=== PATIENT | female | born 1945 | race Caucasian/White ===

== ENCOUNTER 2016-10-01 11:15 | Emergency (ER) | payer OTHER ==
[2016-10-01 11:29] VITALS: TEMP 97.5; BMI 16.9
--- NOTE | 2016-10-01 11:36 | PDOC ---
History of Present Illness - History of Present Illness Initial Comments: 10/01/16 12:46 Patient is a 71 year old female with significant medical hx of schizophrenia who is presenting to the ED with throat pain, painful swallowing, and vomiting. The patient states she's had these symptoms for the past year. She was recently traveling across the country, when she stopped in [place] and stayed in a custodial for several months. While there, the patient went to the hospital for her symptoms and received and endoscopy. The patient is unsure of what was found, but reports that she was given protonix to take. The patient has been taking them until today. She complains of throat pain, esophageal pain, vomiting, and drooling. The patient has been having difficulty swallowing both liquids and solids. Denies fever, chills, diarrhea, abdominal pain, dysuria, hematuria, frequency, chest pain, and shortness of breath. <Opal Lane - Last Filed: 10/01/16 12:46> - General History Source: Patient Exam Limitations: No Limitations <Dasha Harvey - Last Filed: 10/02/16 16:44> - General Chief Complaint: Pain, Acute Stated Complaint: THROAT PAIN Time Seen by Provider: 10/01/16 11:25 Past History <Opal Lane - Last Filed: 10/01/16 12:46> - Past Medical History Anemia: Yes - Psycho/Social/Smoking Cessation Hx Anxiety: Yes Suicidal Ideation: No Smoking History: Never smoked Information on smoking cessation initiated: No Hx Alcohol Use: No Drug/Substance Use Hx: Yes ("CRACK,COCAINE,LSD" YEARS AGO) Substance Use Type: None <Dasha Harvey - Last Filed: 10/02/16 16:44> - Past Medical History Allergies/Adverse Reactions: Allergies Allergy/AdvReac Type Severity Reaction Status Date / Time No Known Allergies Allergy Verified 10/01/16 11:26 Home Medications: Ambulatory Orders Haloperidol [Haldol -] 2.5 mg PO DAILY 10/01/16 Melatonin 3 mg PO DAILY 10/01/16 Pantoprazole Sodium [Protonix] 40 mg PO DAILY 10/01/16 Review of Systems - Review of Systems Comments:: 10/01/16 12:51 GENERAL/CONSTITUTIONAL: No: fever, chills, weakness, loss of appetite. HEAD, EYES, EARS, NOSE AND THROAT: Yes: throat pain, drooling, difficulty swallowing. No: change in vision, ear pain, discharge. CARDIOVASCULAR: No: chest pain, lightheadedness, palpitations, syncope RESPIRATORY: No: cough, shortness of breath, wheezing, hemoptysis, stridor. GASTROINTESTINAL: Yes: nausea, vomiting. No: abdominal cramping, diarrhea, rectal bleeding, constipation. GENITOURINARY: No: dysuria, hematuria, frequency, urgency, flank pain. MUSCULOSKELET AL: No: back pain, neck pain, joint pain, muscle swelling or pain SKIN AND BREASTS: No: lesions, pallor, rash or easy bruising. NEUROLOGIC: No: headache, vertigo, paresthesias, weakness ENDOCRINE: No: unexplained weight gain or loss HEMATOLOGIC/LYMPHATIC: No: anemia, easy bleeding, swelling nodes <Opal Lane - Last Filed: 10/01/16 12:46> *Physical Exam - Vital Signs Last Vital Signs Temp Pulse Resp BP Pulse Ox 97.5 F L 96 H 18 87/69 96 10/01/16 11:17 10/01/16 11:17 10/01/16 11:17 10/01/16 11:17 10/01/16 11:17 - Physical Exam Comments: 10/01/16 12:52 GENERAL: Cachectic. The patient is in no acute distress. HEAD: Normal with no signs of trauma. EYES: PERRLA, EOMI, sclera anicteric, conjunctiva clear. ENT: Ears normal, nares patent, oropharynx clear without exudates. Dry mucous membranes. NECK: Normal range of motion, supple without lymphadenopathy, JVD, or masses. LUNGS: Breath sounds equal, clear to auscultation bilaterally. No wheezes, and no crackles. HEART:Regular rate and rhythm, normal S1 and S2 without murmur, rub or gallop. ABDOMEN: Soft, nontender, normoactive bowel sounds. No guarding, no rebound. EXTREMITIES: Normal range of motion, no edema. No clubbing or cyanosis. No erythema, or tenderness. NEUROLOGICAL: Cranial nerves II through XII grossly intact. Normal speech. No focal neurological deficits. MUSCULOSKELETAL: Back non-tender to palpation, no CVA tenderness SKIN: Warm, Dry, normal turgor, no rashes or lesions noted. <Opal Lane - Last Filed: 10/01/16 12:46> - Vital Signs Last Vital Signs Temp Pulse Resp BP Pulse Ox 97.5 F L 96 H 18 87/69 96 10/01/16 11:17 10/01/16 11:17 10/01/16 11:17 10/01/16 11:17 10/01/16 11:17 <Dasha Harvey - Last Filed: 10/02/16 16:44> Heart Score/ECG Review #1 ECG reviewed & interpreted by me at: 12:03 10/01/16 12:03 Twelve-lead EKG was performed and reviewed by me. There is normal sinus rhythm with a normal rate of 70 bpm. The axis is normal. The intervals are normal - pr: 140ms, QRS:80ms, Qtc:455ms. There are no ST or T wave abnormalities. G <Dasha Harvey - Last Filed: 10/02/16 16:44> ED Treatment Course - LABORATORY CBC & Chemistry Diagram: 10/01/16 12:22 10/01/16 12:22 - Medications Given in the ED: ED Medications Discontinued Medications Generic Name Dose Route Start Last Admin Trade Name Freq PRN Reason Stop Dose Admin Pantoprazole Sodium 40 mg/ 100 mls @ 200 mls/hr 10/01/16 12:06 10/01/16 12:40 Sodium Chloride IVPB 10/01/16 12:35 200 mls/hr ONCE ONE Administration <Opal Lane - Last Filed: 10/01/16 12:46> - LABORATORY CBC & Chemistry Diagram: 10/01/16 12:22 10/01/16 12:22 <Dasha Harvey - Last Filed: 10/02/16 16:44> Medical Decision Making - Medical Decision Making 10/01/16 11:36 A portion of this note was documented by scribe services under my direction. I have reviewed the details of the note, within reason, and agree with the documentation with the following case summary and management plan written by me. Nursing documentation reviewed and incorporated into medical decision making 10/01/16 12:07 This is a 71 yo F presenting to the ER due to concerns about pain/difficulty swallowing Pt states she has had these symptoms for the past 2 years It worsened over the past 6 months She was seen at a hospital in [place] She is s/p reported endoscopy which was negative according to patient Pt was told to take protonix 10/01/16 13:39 Laboratory Tests 10/01/16 10/01/16 12:22 12:22 WBC 10.1 H Hgb 11.0 Hct 34.5 Plt Count 305 Sodium 140 Potassium 3.5 Chloride 101 Carbon Dioxide 28 BUN 19 H Creatinine 0.9 Random Glucose 105 Creatine Kinase 49 Troponin I < 0.02 Will discharge to home Pt asked to follow up with a PMD as well as GI Pt BP remains low Given IV fluids (in total 1.5 L) pt encouraged to eat small meals 10/01/16 16:11 BP repeated 106/70 Will discharge to home Pt can follow up with the primary care physicians as we discussed Pt should also also follow up with GI for repeat endoscopy Pt encouraged to continue taking Protonix Follow up psych within 1 week <Dasha Harvey - Last Filed: 10/02/16 16:44> *DC/Admit/Observation/Transfer - Attestations Scribe Attestion: 10/01/16 12:53 Documentation prepared by Opal Lane, acting as manager medical writing for Dasha Harvey MD. <Opal Lane - Last Filed: 10/01/16 12:46> - Discharge Dispostion Admit: No <Dasha Harvey - Last Filed: 10/02/16 16:44> Diagnosis at time of Disposition: Gastritis and duodenitis - Discharge Dispostion Disposition: HOME Condition at time of disposition: Stable - Referrals Referrals: Abigail Fragoso MD [Staff Physician] - Randy Livingston MD [Staff Physician] - Carlos Vega MD [Staff Physician] - Kathryn Madrigal MD [Staff Physician] - - Patient Instructions Printed Discharge Instructions: DI for Gastritis, Gastritis (Alternative Therapy), [place] Diet Additional Instructions: [place] Thank you for coming in to the ER today Please make sure that you follow up with a primary care physician and GI doctor (their contact info is in your discharge paperwork) Please return to the ER for any other concerns or complaints Please modify your diet such that you eat soft foods which are easy to swallow
[2016-10-01] MEDS ORDERED: SODIUM CHLORIDE 1,000 ML IV STA ×2 (12:05→14:05)
[2016-10-01] MEDS ORDERED: PANTOPRAZOLE SODIUM 40 MG in SODIUM CHLORIDE 100 ML IVPB ONE (12:06)
[2016-10-01] MEDS ORDERED: PANTOPRAZOLE SODIUM 100 ML IVPB ONE (12:28)
[2016-10-01 12:43] LABS: MCHC 31.8 g/dl (32.0-36.0); MEAN CELL VOLUME 81.7 fl (80-96); MEAN PLT VOLUME 7.3 fl (7.5-11.1); PLATELET COUNT 305 K/MM3 (134-434); RDW 20.3 % (11.6-15.6); WHITE BLOOD COUNT 10.1 K/mm3 (4.0-10.0)
[2016-10-01 13:25] LABS: ALBUMIN 3.3 g/dl (3.4-5.0); ANION GAP 11 (8-16); BILIRUBIN,TOTAL 0.4 mg/dL (0.2-1.0); CALCIUM 9.2 mg/dL (8.5-10.1); CO2 28 mmol/L (21-32); CREATININE 0.9 mg/dL (0.55-1.02); GLUCOSE,RANDOM 105 mg/dL (74-106); SGOT/AST 14 U/L (15-37); SGPT/ALT 20 U/L (12-78); TOT PROT 6.2 g/dl (6.4-8.2)
[2016-10-01 13:26] LABS: ALK PHOS 91 U/L (45-117); TROPONIN I < 0.02 ng/ml (0.00-0.05)
[2016-10-01 14:08] LABS: ANISOCYTOSIS 1+; PLATELET ESTIMATE ADEQUATE (NORMAL)
[2016-10-01 16:31] VITALS: BP 108/68; PULSE 71
--- NOTE | 2016-10-04 12:17 | EKG ---
Test Reason : Blood Pressure : / mmHG Vent. Rate : 070 BPM Atrial Rate : 070 BPM P-R Int : 140 ms QRS Dur : 080 ms QT Int : 422 ms P-R-T Axes : 064 008 053 degrees QTc Int : 455 ms NORMAL SINUS RHYTHM LEFT ATRIAL ENLARGEMENT BORDERLINE ECG NO PREVIOUS ECGS AVAILABLE Confirmed by LINH REYNOLDS MD ([id number]) on 10/04/2016 12:17:02 PM Referred By: Confirmed By:LINH REYNOLDS MD
== END 2016-10-01 16:34 | disposition home or self-care (01) ==
LOC: JER 11:15
PROC: 3E0337Z Introduction of Electrolytic and Water Balance Substance into Peripheral Vein, Percutaneous Approach (ICD-10-PCS; principal; 2016-10-01)
PROC: 3E033GC Introduction of Other Therapeutic Substance into Peripheral Vein, Percutaneous Approach (ICD-10-PCS; 2016-10-01)
DX: K29.60 Other gastritis without bleeding (principal); K29.80 Duodenitis without bleeding
CPT/HCPCS: 36415; 80053; 82550; 84484; 85025; 93005; 93010; 96361; 96365; 99284-25

== ENCOUNTER 2017-04-11 18:59 | Inpatient (IN) | payer OTHER ==
[2017-04-11 19:20] VITALS: BMI 14.4
--- NOTE | 2017-04-11 20:50 | PDOC ---
History of Present Illness - General History Source: Patient Exam Limitations: No Limitations - History of Present Illness Initial Comments: 04/11/17 21:02 The patient is a 71 year old female with history of anorexia and bulimia who presents to the ED complaining of several months of decreased appetite and generalized weakness. She states she has not been eating for several months. Today she felt generally weak and experienced multiple episodes of vomiting when she attempted eating. She comes to the ED requested "liquid nutrition". The patient also reports associated weight loss and midsternal chest burning secondary to her anorexia and vomiting. She does not recall her last bowel movement and states she is not flatulent. She denies any recent fever, cough, or shortness of breath. PCP: None. <Manda Rowley - Last Filed: 04/12/17 00:15> <Kyaw Hernandez - Last Filed: 04/12/17 05:15> - General Chief Complaint: Loss of Appetite Stated Complaint: WEAKNESS Time Seen by Provider: 04/11/17 20:50 Past History <Manda Rowley - Last Filed: 04/12/17 00:15> - Past Medical History Anemia: Yes Psychiatric Problems: Yes (SCHIZOPHRENIA.) Other medical history: anorexia, bulemia - Suicide/Smoking/Psychosocial Hx Smoking History: Never smoked Hx Alcohol Use: No Drug/Substance Use Hx: No Substance Use Type: None <Kyaw Hernandez - Last Filed: 04/12/17 05:15> - Past Medical History Allergies/Adverse Reactions: Allergies Allergy/AdvReac Type Severity Reaction Status Date / Time No Known Allergies Allergy Verified 04/11/17 19:18 Home Medications: Ambulatory Orders Haloperidol [Haldol -] 2.5 mg PO DAILY 10/01/16 Melatonin 3 mg PO DAILY 10/01/16 Pantoprazole Sodium [Protonix] 40 mg PO DAILY 10/01/16 Review of Systems - Review of Systems Able to Perform ROS?: Yes Comments:: 04/11/17 21:23 A complete review of 10 out of 10 review of systems is taken and is negative apart from what is previously mentioned below and in the HPI. <Manda Rowley - Last Filed: 04/12/17 00:15> *Physical Exam - Vital Signs Last Vital Signs Temp Pulse Resp BP Pulse Ox 98.2 F 99 H 20 106/56 98 04/11/17 19:18 04/11/17 19:18 04/11/17 19:18 04/11/17 19:18 04/11/17 19:18 - Physical Exam Comments: 04/11/17 21:23 Vitals: Triage Vital signs reviewed General Appearance: Thin, cachectic appearance Head: Atraumatic Eyes: Pupils equal reactive round, extraocular movement intact Ears: TM's normal bilaterally Nose: Nares patent bilaterally; no nasal congestion Throat: Posterior oropharynx without erythema, mucous membranes dry Neck: Supple; No Nucal rigidity Cardiac: Regular rate and rhythym, no murmurs, no rubs, no gallops Lungs: Clear to auscultation bilateral, good air movement bilaterally Abdomen: Soft, non distended, normal bowel sounds, non tender to palpation Extremities: Full range of motion to all extremities, no cyanosis, clubbing, or edema Skin: Warm and dry, no rashes or lesions, no rash, no petechiae Neuro: AOX3; Cranial Nerves 2-12 grossly intact, Strength intact to all extremities, Sensation intact to all extremities, gait normal <Manda Rowley - Last Filed: 04/12/17 00:15> - Vital Signs Last Vital Signs Temp Pulse Resp BP Pulse Ox 98.2 F 99 H 20 106/56 98 04/11/17 19:18 04/11/17 19:18 04/11/17 19:18 04/11/17 19:18 04/11/17 19:18 <Kyaw Hernandez - Last Filed: 04/12/17 05:15> Heart Score/ECG Review #1 04/12/17 00:16 EKG performed at 21:20 demonstrates rate of 84 bpm, rhythm of NSR, axis equal to normal. Additional findings include slightly prolonged QT <Manda Rowley - Last Filed: 04/12/17 00:15> ED Treatment Course - LABORATORY CBC & Chemistry Diagram: 04/11/17 21:08 04/11/17 21:08 <Manda Rowley - Last Filed: 04/12/17 00:15> - LABORATORY CBC & Chemistry Diagram: 04/11/17 21:08 04/11/17 21:08 <Kyaw Hernandez - Last Filed: 04/12/17 05:15> Medical Decision Making - Medical Decision Making 10/31/17 05:14 Patient thin cachectic with history of anorexia and bulimia. Labs notable for hypokalemia dehydration. Patient with failure to thrive and failure to tolerate food and fluids at home. We'll observe in hospital for IV hydration and potassium repletion and further management. <Kyaw Hernandez - Last Filed: 04/12/17 05:15> *DC/Admit/Observation/Transfer - Attestations Scribe Attestion: 04/11/17 21:31 Documentation prepared by Manda Rowley, acting as medical billing coder for Kyaw Hernandez MD. <Manda Rowley - Last Filed: 04/12/17 00:15> - Discharge Dispostion Admit: Yes <Kyaw Hernandez - Last Filed: 04/12/17 05:15> Diagnosis at time of Disposition: Anorexia, Hypokalemia
[2017-04-11] MEDS ORDERED: SODIUM CHLORIDE 0.9% 1000 ML INFUS.BAG IV ONE (21:15)
[2017-04-11 21:24] LABS: BASOPHIL 0.8 % (0-2.0); MCH 28.2 pg (25.7-33.7); MCHC 33.3 g/dl (32.0-36.0); MEAN CELL VOLUME 84.6 fl (80-96); MEAN PLT VOLUME 7.2 fl (7.5-11.1); NEUTROPHILS 55.1 % (42.8-82.8); PLATELET COUNT 317 K/MM3 (134-434); RDW 17.3 % (11.6-15.6)
[2017-04-11 21:49] LABS: ALBUMIN 3.3 g/dl (3.4-5.0); ANION GAP 7 (8-16); BILIRUBIN,TOTAL 0.7 mg/dL (0.2-1.0); CALCIUM 9.1 mg/dL (8.5-10.1); CO2 32 mmol/L (21-32); CREATININE 0.9 mg/dL (0.55-1.02); GLUCOSE,RANDOM 96 mg/dL (74-106); SGPT/ALT 15 U/L (12-78); TOT PROT 6.4 g/dl (6.4-8.2)
[2017-04-11 21:52] LABS: ALK PHOS 87 U/L (45-117); TROPONIN I < 0.02 ng/ml (0.00-0.05)
[2017-04-11 21:53] LABS: SGOT/AST 20 U/L (15-37)
[2017-04-11 21:57] LABS: URINE APPEARANCE SLCLOUDY; URINE BLOOD 1+ (NEGATIVE); URINE COLOR AMBER; URINE GLUCOSE (UA) NEGATIVE (NEGATIVE); URINE KETONE TRACE (NEGATIVE); URINE NITRITE NEGATIVE (NEGATIVE); URINE PROTEIN 1+ (NEGATIVE); URINE UROBILINOGEN 4.0 E.U/dl mg/dL (0.2-1.0)
[2017-04-11 21:59] LABS: URINE BACTERIA MANY /hpf (NONE SEEN); URINE HYALINE CAST 9 /lpf; URINE MUCUS FEW; URINE RBC 2 /hpf (0-3); URINE WBC 7 /hpf (3-5)
[2017-04-11 22:29] LABS: URINE LEUK ESTERASE Negative (NEGATIVE)
[2017-04-11] MEDS ORDERED: POTASSIUM CHLORIDE ORAL LIQUID 20 MEQ/15 ML PO ONE (22:38)
[2017-04-11] MEDS: KCL 10 MEQ IVPB 100 ML IVPB SCH (22:45)
[2017-04-11] MEDS ORDERED: KCL 10 MEQ IVPB ONE (22:53)
[2017-04-11] MEDS ORDERED: POTASSIUM CHLORIDE ORAL LIQUID 20 MEQ/15 ML ONE (22:53)
[2017-04-11] MEDS ORDERED: THIAMINE HCL 200 MG/2 ML VIAL IVPB ONE (23:02)
--- NOTE | 2017-04-11 23:05 | HP ---
CHIEF COMPLAINT: PCP: none HISTORY OF PRESENT ILLNESS: This is a 71 yo F with PMH of anorexia and bulimia, who presents due to weakness and inability to tolerate PO intake x 1 year, which has recently gotten worse. Patient states that she has a life long history of purging, which caused her to lose her teeth and has irritated her throat. Now every time she tries to swallow she experiences severe burning pain in her mouth throat and chest, which causes her to spit up the food and mucus. She states that she lost 40 lb this year. She admits to using laxatives for 3 days due to constipation without achieving a BM. She denies abd pain, f/c, cp, sob, cough, sysuria, hematemesis, hematochezia, melena. She requests "liquid nutrition" and is amicable toward hospital refeeding, nutrition and psychiatry consult. found to be hypochloremic, hypokalemic, prolonget qtc 491 in ED ER course was notable for: (1)labs (2)ekg, cxr (3)ivf, k Recent Travel: denies PAST MEDICAL HISTORY: as above PAST SURGICAL HISTORY: as above Social History: lives with sister Smoking: denies Alcohol:denies Drugs: denies Family History: noncontributory Allergies No Known Allergies Allergy (Verified 04/11/17 19:18) HOME MEDICATIONS: Home Medications Medication Instructions Recorded Haloperidol [Haldol -] 2.5 mg PO DAILY 10/01/16 Melatonin 3 mg PO DAILY 10/01/16 Pantoprazole Sodium [Protonix] 40 mg PO DAILY 10/01/16 REVIEW OF SYSTEMS CONSTITUTIONAL: Absent: fever, chills HEENT: Absent: rhinorrhea, nasal congestion, visual changes CARDIOVASCULAR: Absent: chest pain, syncope, palpitations, irregular heart rate, lightheadedness , peripheral edema RESPIRATORY: Absent: cough, shortness of breath, dyspnea with exertion, orthopnea, wheezing, stridor, hemoptysis GASTROINTESTINAL: Absent: abdominal pain, abdominal distension, diarrhea, melena, hematochezia GENITOURINARY: Absent: dysuria MUSCULOSKELETAL: Absent: myalgia, arthralgia SKIN: Absent: rash, itching, pallor HEMATOLOGIC/IMMUNOLOGIC: Absent: easy bleeding, easy bruising, lymphadenopathy, frequent infections ENDOCRINE: Absent: heat intolerance, cold intolerance NEUROLOGIC: Absent: headache, focal weakness or paresthesias PSYCHIATRIC: Absent: suicidal or homicidal ideation, hallucinations. PHYSICAL EXAMINATION Vital Signs - 24 hr 04/11/17 19:18 Temperature 98.2 F Pulse Rate 99 H Respiratory 20 Rate Blood Pressure 106/56 O2 Sat by Pulse 98 Oximetry (%) GENERAL: cachectic, irritable, Awake, alert, and fully oriented, in no acute distress. HEAD: Normal with no signs of trauma. EYES: Pupils equal, round and reactive to light, extraocular movements intact, sclera anicteric, conjunctiva clear. No lid lag. EARS, NOSE, THROAT: dry mucous membranes, irritated oropharyngeal mucosa, no teeth, white exudate on tongue NECK: supple LUNGS: Breath sounds equal, clear to auscultation bilaterally. HEART: Regular rate and rhythm, normal S1 and S2 ABDOMEN: Soft, nontender, not distended, normoactive bowel sounds, no guarding, no rebound, no masses. No hepatomegaly or splenomegaly. MUSCULOSKELETAL: No CVA tenderness. UPPER EXTREMITIES: 2+ pulses, warm, well-perfused.No peripheral edema. LOWER EXTREMITIES: 2+ pulses, warm, well-perfused. No calf tenderness. No peripheral edema. NEUROLOGICAL: Cranial nerves II-XII grossly intact. Normal speech. PSYCHIATRIC: Cooperative. SKIN: Warm, dry Laboratory Results - last 24 hr 04/11/17 04/11/17 04/11/17 21:08 21:08 21:08 WBC RBC Hgb Hct MCV MCH MCHC RDW Plt Count MPV Neutrophils % Lymphocytes % Monocytes % Eosinophils % Basophils % PTT (Actin FS) 30.4 Sodium 136 Potassium 3.0 L Chloride 97 L Carbon Dioxide 32 Anion Gap 7 L BUN 22 H Creatinine 0.9 Creat Clearance w eGFR > 60 Random Glucose 96 Calcium 9.1 Total Bilirubin 0.7 D AST 20 D ALT 15 D Alkaline Phosphatase 87 Troponin I < 0.02 Total Protein 6.4 Albumin 3.3 L Lipase 207 Urine Color Urine Appearance Urine pH Ur Specific [place] Urine Protein Urine Glucose (UA) Urine Ketones Urine Blood Urine Nitrite Urine Bilirubin Urine Urobilinogen Ur Leukocyte Esterase Urine RBC Urine WBC Urine Bacteria Hyaline Casts Urine Mucus Blood Type Cancelled Antibody Screen Cancelled Spec Expiration Date Cancelled 04/11/17 04/11/17 21:08 21:50 WBC 7.0 D RBC 4.17 Hgb 11.7 Hct 35.2 MCV 84.6 MCH 28.2 MCHC 33.3 RDW 17.3 H D Plt Count 317 MPV 7.2 L Neutrophils % 55.1 D Lymphocytes % 33.6 D Monocytes % 9.5 D Eosinophils % 1.0 Basophils % 0.8 D PTT (Actin FS) Sodium Potassium Chloride Carbon Dioxide Anion Gap BUN Creatinine Creat Clearance w eGFR Random Glucose Calcium Total Bilirubin AST ALT Alkaline Phosphatase Troponin I Total Protein Albumin Lipase Urine Color [place] Urine Appearance Slcloudy Urine pH 5.0 Ur Specific [place] 1.025 Urine Protein 1+ H Urine Glucose (UA) Negative Urine Ketones Trace H Urine Blood 1+ H Urine Nitrite Negative Urine Bilirubin 2.0 Urine Urobilinogen 4.0 e.u/dl H Ur Leukocyte Esterase Negative Urine RBC 2 Urine WBC 7 Urine Bacteria Many Hyaline Casts 9 Urine Mucus Few Blood Type Antibody Screen Spec Expiration Date ASSESSMENT/PLAN: This is a 71 yo F with PMH of anorexia and bulimia, who presents due to weakness and inability to tolerate PO intake x 1 year, which has recently gotten worse. Dysphagia in setting of Anotexia nervosa/bulimia -likely erosive esophagitis due to frequent vomiting -concern for stricture -GI consult -possible thrush; nystatin po solution -speech/swallow eval Cachexia, dehydration -BMI 14 -hypokalemia, hypochloremia -prolonged qtc -h/h wnl -phos, mag, prealbumin p/d -high risk for refeeding syndrome -nutrition consult -refeeding goal 1500 claribel/day when tolerates po -Thiamine 200 given -banana bag -check vitamin levels -IV hydration -careful electrolyte monitoring -notify physician if HR>70 bpm -psych eval Dispo: adm med meek Problem List - Problem (1) Anorexia Code(s): R63.0 - ANOREXIA (2) Hypokalemia Code(s): E87.6 - HYPOKALEMIA (3) Hypochloremia Code(s): E87.8 - OTH DISORDERS OF ELECTROLYTE AND FLUID BALANCE, NEC (4) Hypochloremic alkalosis Code(s): E87.3 - ALKALOSIS (5) Depression Code(s): F32.9 - MAJOR DEPRESSIVE DISORDER, SINGLE EPISODE, UNSPECIFIED Visit type - Emergency Visit Emergency Visit: Yes Care time: The patient presented to the Emergency Department on the above date and was hospitalized for further evaluation of their emergent condition. - New Patient This patient is new to me today: Yes Date on this admission: 04/12/17 - Critical Care Critical Care patient: No
--- NOTE | 2017-04-11 23:45 | PN ---
Teaching Attending Note Name of Resident: Gabrielle Leyva ATTENDING PHYSICIAN STATEMENT I saw and evaluated the patient. I reviewed the resident's note and discussed the case with the resident. I agree with the resident's findings and plan as documented. SUBJECTIVE: 71 yo F with hx of anorexia and bulimia who presents with weakness. Also notes decreased appetite. She said she does not want to talk about it further. Denies any chest pain, pressure or shortness of breath. Pt. reported dysphagia to resident. OBJECTIVE: PHYSICAL: VS: Vital Signs Period Temp Pulse Resp BP Sys/Ryan Pulse Ox Last 24 Hr 98.2 F 99 20 106/56 98 GEN: NAD, Resting in bed, AA0X3, Able to speak full sentences HEENT: NCAT, PERRL, throat without erythema or exudates CARD: RRR S1, S2 RESP: CTAB ABD: BSx4, [place] EXT:Trace pitting edema, bilateral and equal CBCD WBC 7.0 K/mm3 (4.0-10.0) D 04/11/17 21:08 RBC 4.17 M/mm3 (3.60-5.2) 04/11/17 21:08 Hgb 11.7 GM/dL (10.7-15.3) 04/11/17 21:08 Hct 35.2 % (32.4-45.2) 04/11/17 21:08 MCV 84.6 fl (80-96) 04/11/17 21:08 MCHC 33.3 g/dl (32.0-36.0) 04/11/17 21:08 RDW 17.3 % (11.6-15.6) H D 04/11/17 21:08 Plt Count 317 K/MM3 (134-434) 04/11/17 21:08 MPV 7.2 fl (7.5-11.1) L 04/11/17 21:08 CMP Sodium 136 mmol/L (136-145) 04/11/17 21:08 Potassium 3.0 mmol/L (3.5-5.1) L 04/11/17 21:08 Chloride 97 mmol/L (98-107) L 04/11/17 21:08 Carbon Dioxide 32 mmol/L (21-32) 04/11/17 21:08 Anion Gap 7 (8-16) L 04/11/17 21:08 BUN 22 mg/dL (7-18) H 04/11/17 21:08 Creatinine 0.9 mg/dL (0.55-1.02) 04/11/17 21:08 Creat Clearance w eGFR > 60 (>60) 04/11/17 21:08 Random Glucose 96 mg/dL (74-106) 04/11/17 21:08 Calcium 9.1 mg/dL (8.5-10.1) 04/11/17 21:08 Total Bilirubin 0.7 mg/dL (0.2-1.0) D 04/11/17 21:08 AST 20 U/L (15-37) D 04/11/17 21:08 ALT 15 U/L (12-78) D 04/11/17 21:08 Alkaline Phosphatase 87 U/L (45-117) 04/11/17 21:08 Total Protein 6.4 g/dl (6.4-8.2) 04/11/17 21:08 Albumin 3.3 g/dl (3.4-5.0) L 04/11/17 21:08 CARDIAC ENZYMES Troponin I < 0.02 ng/ml (0.00-0.05) 04/11/17 21:08 EKG: NSR QTC 491 Ambulatory Orders Haloperidol [Haldol -] 2.5 mg PO DAILY 10/01/16 Melatonin 3 mg PO DAILY 10/01/16 Pantoprazole Sodium [Protonix] 40 mg PO DAILY 10/01/16 ASSESSMENT AND PLAN: 71 F with hx. of anorexia/bulimia who presents with decreased appetite and weakness, found to have electrolyte abnormalities 1.) Weakness - Most likely due to decreased PO intake/hypokalemia - STAT mg2+ and Phos- NEED 12-24 Hrs of repletion PRIOR to feeding to AVOID refeeding syndrome - CHk. Lytes daily - IVF gentle - Psych. consult - Social work consult - Nutrition consult - Pre-Albumin/B12/Folate - Thiamine 2.) Prolonged QT - Stat Mg2+ - Replete lytes K>4.0, Mg2+>2.0 - Get Phos. level - HOLD HALDOL 3.) Hypokalemia - Replete - Chk. Mg2+ 4.) Anorexia/Bulimia - Nutrition/Psych. Consult 5.) Dysphagia - DDx: Esophagitis - GI consult 4.) Dvt Ppx - Mod Risk - Heparin [address] Med-Sx
[2017-04-12 00:03] LABS: PHOSPHOROUS 4.4 mg/dL (2.5-4.9)
[2017-04-12 00:12] LABS: MAGNESIUM 2.3 mg/dL (1.8-2.4)
[2017-04-12] MEDS ORDERED: SODIUM CHLORIDE 1,000 ML IV SCH (00:15)
[2017-04-12] MEDS ORDERED: FOLIC ACID INJECTION - 1 MG, THIAMINE HCL 100 MG, MULTIVIT INJECTION ADULT 10 ML in SOD... IVPB ONE (00:30)
[2017-04-12] MEDS ORDERED: SODIUM CHLORIDE IVPB ONE (00:41)
[2017-04-12] MEDS ORDERED: POTASSIUM PHOSPHATE IVPB ONE (00:41)
[2017-04-12] MEDS: KCL 10 MEQ IVPB 100 ML IVPB SCH (00:43)
--- NOTE | 2017-04-12 00:46 | HP ---
CHIEF COMPLAINT: Worsening weakness,throat pain, difficulty swallowing and vomiting x1 year PCP: HISTORY OF PRESENT ILLNESS: Patient is a 71 year old female with significant PMHx of anorexia/bulimia, schizophrenia and depression who is presenting to the ED with worsening weakness, throat pain, painful swallowing, and vomiting. Pt says she has been vomiting every time she eats food, for the past one year. She says the vomit is whitish, mucoid and non bloody, precipitated by ingestion of food. Lately she has had difficulty swallowing with pain in her throat. She traveled to [place] about 3 months ago and got an EGD done and was told nothing was wrong with her. She has lost significant weight, dropping from 125lbs to 75lbs over more than 3 months. There is no diarrhea but patient admits to using laxatives in the past week and has a hard time passing stool since she has minimal intake of food orally. No history of jaundice, fever, mouth sores or whitish coloration of mouth, but patient has no teeth. Patient says she lives with her sister and is independent in her ADLS (cooks for herself but does not drive), but is unable to eat the food she cooks because of the vomiting and pain. She came in today requesting enteral nutrition because she said she is unable to keep down food taken by mouth. She agrees to stay to get help with her nutrition, including seeing a psychiatrist. ER course was notable for: (1) EKG- QTc prolonged at 491, trops--ve (2)CMP- hypokalemia, hypochloremia, CBC-wnl (3) Iv fluid 1.5L stat -given 4)thiamine, banana bag Recent Travel: To [place] in past 3 months PAST MEDICAL HISTORY: Anorexia/bulimia Schizophrenia Dysphagia PAST SURGICAL HISTORY: Social History: Smoking: No Alcohol:No Drugs: Cocaine and LSD in past Family History: Allergies No Known Allergies Allergy (Verified 04/11/17 19:18) HOME MEDICATIONS: Home Medications Medication Instructions Recorded Haloperidol [Haldol -] 2.5 mg PO DAILY 10/01/16 Melatonin 3 mg PO DAILY 10/01/16 Pantoprazole Sodium [Protonix] 40 mg PO DAILY 10/01/16 REVIEW OF SYSTEMS CONSTITUTIONAL: Absent: fever, chills, diaphoresis, generalized weakness, malaise, loss of appetite, weight change+ HEENT: Absent: rhinorrhea, nasal congestion, throat pain+, throat swelling, difficulty swallowing+, mouth swelling, ear pain, eye pain, visual changes CARDIOVASCULAR: Absent: chest pain, syncope, palpitations, irregular heart rate, lightheadedness , peripheral edema RESPIRATORY: Absent: cough, shortness of breath, dyspnea with exertion, orthopnea, wheezing, stridor, hemoptysis GASTROINTESTINAL: Absent: abdominal pain, abdominal distension, nausea, vomiting, diarrhea, constipation, melena, hematochezia GENITOURINARY: Absent: dysuria, frequency, urgency, hesitancy, hematuria, flank pain, genital pain MUSCULOSKELETAL: Absent: myalgia, arthralgia, joint swelling, back pain, neck pain SKIN: Absent: rash, itching, pallor HEMATOLOGIC/IMMUNOLOGIC: Absent: easy bleeding, easy bruising, lymphadenopathy, frequent infections ENDOCRINE: Absent: unexplained weight gain, weight loss+, heat intolerance, cold intolerance NEUROLOGIC: Absent: headache, focal weakness or paresthesias, dizziness, unsteady gait, seizure, mental status changes, bladder or bowel incontinence PSYCHIATRIC: Absent: anxiety, depression, suicidal or homicidal ideation, hallucinations. PHYSICAL EXAMINATION Vital Signs - 24 hr 04/11/17 19:18 Temperature 98.2 F Pulse Rate 99 H Respiratory 20 Rate Blood Pressure 106/56 O2 Sat by Pulse 98 Oximetry (%) GENERAL: Cachectic. Awake, alert, in no acute distress. HEAD: Normal with no signs of trauma. EYES: Pupils equal, miosed, reactive to light, extraocular movements intact, sclera anicteric, conjunctiva clear. EARS, NOSE, THROAT: hyperemic oropharynx. Dry mucous membranes, absent teeth, whitish tongue. NECK: Normal range of motion, supple,no JVD. LUNGS: Normal breath sounds bilaterally. No wheezes, and no crackles. No accessory muscle use. HEART: Tachycardic, S1 and S2, ABDOMEN: Soft, nontender, flat, bowel sounds present. MUSCULOSKELETAL: No tenderness. No CVA tenderness. UPPER EXTREMITIES: 2+ pulses, warm, well-perfused. No cyanosis. No clubbing. No peripheral edema. LOWER EXTREMITIES: 2+ pulses, warm, well-perfused. No calf tenderness. No peripheral edema. NEUROLOGICAL: Symmetric face, tongue not deviated. Normal speech. Gait not observed. PSYCHIATRIC: Cooperative. Good eye contact. talkative. SKIN: Warm, dry, no rashes or lesions noted, Laboratory Results - last 24 hr 04/11/17 04/11/17 04/11/17 21:08 21:08 21:08 WBC RBC Hgb Hct MCV MCH MCHC RDW Plt Count MPV Neutrophils % Lymphocytes % Monocytes % Eosinophils % Basophils % PTT (Actin FS) 30.4 Sodium 136 Potassium 3.0 L Chloride 97 L Carbon Dioxide 32 Anion Gap 7 L BUN 22 H Creatinine 0.9 Creat Clearance w eGFR > 60 Random Glucose 96 Calcium 9.1 Total Bilirubin 0.7 D AST 20 D ALT 15 D Alkaline Phosphatase 87 Troponin I < 0.02 Total Protein 6.4 Albumin 3.3 L Lipase 207 Urine Color Urine Appearance Urine pH Ur Specific Cassatt Urine Protein Urine Glucose (UA) Urine Ketones Urine Blood Urine Nitrite Urine Bilirubin Urine Urobilinogen Ur Leukocyte Esterase Urine RBC Urine WBC Urine Bacteria Hyaline Casts Urine Mucus Blood Type Cancelled Antibody Screen Cancelled Spec Expiration Date Cancelled 04/11/17 04/11/17 21:08 21:50 WBC 7.0 D RBC 4.17 Hgb 11.7 Hct 35.2 MCV 84.6 MCH 28.2 MCHC 33.3 RDW 17.3 H D Plt Count 317 MPV 7.2 L Neutrophils % 55.1 D Lymphocytes % 33.6 D Monocytes % 9.5 D Eosinophils % 1.0 Basophils % 0.8 D PTT (Actin FS) Sodium Potassium Chloride Carbon Dioxide Anion Gap BUN Creatinine Creat Clearance w eGFR Random Glucose Calcium Total Bilirubin AST ALT Alkaline Phosphatase Troponin I Total Protein Albumin Lipase Urine Color Mira Urine Appearance Slcloudy Urine pH 5.0 Ur Specific Cassatt 1.025 Urine Protein 1+ H Urine Glucose (UA) Negative Urine Ketones Trace H Urine Blood 1+ H Urine Nitrite Negative Urine Bilirubin 2.0 Urine Urobilinogen 4.0 e.u/dl H Ur Leukocyte Esterase Negative Urine RBC 2 Urine WBC 7 Urine Bacteria Many Hyaline Casts 9 Urine Mucus Few Blood Type Antibody Screen Spec Expiration Date ASSESSMENT/PLAN: 71 year old female with significant medical hx of anorexia/bulimia, schizophrenia and depression who is presenting to the ED with Worsening throat pain, difficulty swallowing and vomiting x1 year #Weakness -Likely secondary to electrolyte deficiency-hypokalemia -2/2 to vomiting in bulimia and poor intake -could be due to dehydration - Pt received 1.5L Normal saline in ED - Continue gentle hydration iv normal saline @75/hr -Iv Kcl 20meq given -BMP -monitor -Fall precautions #Dysphagia with background Anorexia nervosa/bulimia -patient admits to laxative use, but did not confirm induced vomiting -whitish deposit on tongue could be 2/2 dehydration or could be oral trush, -Could be due to erosive esophagitis 2/2 to vomiting -R/O esophageal stricture -iv protonix 40mg daily -speech/swallow eval -nystatin po solution #Anorexia/bulimia -BMI of 14.4, hx of laxative use, hx of chronic vomiting, cachectic, hypotensive (87/69) on initial presentation - 1.5 L of iv fluid given in ED- BP improved to 106/70 -hypokalemia, hypochloremia- replete -h/h wnl -phos, mag-wnl -prealbumin- wnl -high risk for refeeding syndrome - given normal H&H -nutrition consult -refeeding goal 1500 claribel/day when tolerates po -Thiamine 200 given -banana bag -check vitamin levels -Vit B1, B12 (low normal- consider supplementing), folate, could check methylmalonic acid levels but requires pre-authorization -IV hydration gently @75/ml -careful electrolyte monitoring -notify physician if HR>70 bpm- to watch for refeeding syndrome -psych consult -social work eval #Prolonged QTc -Pt is on haloperidol- hold -prolonged qtc-491 -Replete electrolytes as needed -Goal Mg> 2.0, Ph>3.0, K>4.0 #Prophylaxis DVT-SCDs Heparin 500,000 bid #Dispo Admit Med surg Visit type - Emergency Visit Emergency Visit: Yes ED Registration Date: 04/12/17 Care time: The patient presented to the Emergency Department on the above date and was hospitalized for further evaluation of their emergent condition. - New Patient This patient is new to me today: Yes Date on this admission: 04/12/17 - Critical Care Critical Care patient: No
[2017-04-12] MEDS ORDERED: NYSTATIN 500,000 UNITS/5 ML SUSPENSION PO SCH (06:00)
--- NOTE | 2017-04-12 09:17 | HOSP ---
Subjective - Review of Symptoms Events since last encounter: Informed by ER nurse that patient would like to sign out against medical advice (AMA). Discussed with Dr. Madrigal and recommended patient to stay till seen by him. Unfortunately, patient declined. The patient is non-suicidal, competent and understands the risks of leaving, including syncope, electrolyte derangement , arrhythmia, seizure, bone fracture, continuing weight loss, GI bleed, or even . She has had an opportunity to ask questions about her condition. The patient has been informed that she may return for care at any time. Meanwhile, she's instructed to arrange a follow up with her primary care physician for further medical workup. Physical Examination Vital Signs: Vital Signs Temperature 98.2 F 04/11/17 19:18 Pulse Rate 66 04/12/17 06:49 Respiratory Rate 18 04/12/17 06:49 Blood Pressure 109/66 04/12/17 06:49 O2 Sat by Pulse Oximetry (%) 99 04/12/17 06:49 Visit type - Emergency Visit Emergency Visit: Yes ED Registration Date: 04/12/17 Care time: The patient presented to the Emergency Department on the above date and was hospitalized for further evaluation of their emergent condition. - New Patient This patient is new to me today: Yes Date on this admission: 04/13/17 - Critical Care Critical Care patient: No
[2017-04-12 09:51] VITALS: BP 117/51; PULSE 62; TEMP 98
[2017-04-12] MEDS ORDERED: PANTOPRAZOLE SODIUM 40 MG VIAL IVPUSH SCH (10:00)
[2017-04-12] MEDS ORDERED: HEPARIN NA (PORCINE) 5,000 UNITS/ML 1ML VIAL SQ SCH (10:00)
--- NOTE | 2017-04-12 13:12 | EKG ---
Test Reason : Blood Pressure : / mmHG Vent. Rate : 084 BPM Atrial Rate : 084 BPM P-R Int : 172 ms QRS Dur : 088 ms QT Int : 416 ms P-R-T Axes : 065 -07 033 degrees QTc Int : 491 ms NORMAL SINUS RHYTHM POSSIBLE LEFT ATRIAL ENLARGEMENT RSR' IN V2 PROLONGED QT ABNORMAL ECG WHEN COMPARED WITH ECG OF 01-OCT-2016 11:42, NO SIGNIFICANT CHANGE WAS FOUND REPEAT EKG IF CLINICALLY INDICATED Confirmed by MARISABEL IQBAL MD ([id number]) on 04/12/2017 1:12:33 PM Referred By: Confirmed By:MARISABEL IQBAL MD
== END 2017-04-12 09:25 | disposition left against medical advice (07) | DRG 887 ==
LOC: JER 18:59 → JERBED 22:41 → UNDOADMOB 23:49 → OBSVTOIN 04-12 00:22
PROVIDERS: ADMIT Internal Medicine; ATTEND Internal Medicine
DX: F50.2 Bulimia nervosa (principal); Z68.1 Body mass index [BMI] 19.9 or less, adult; R64 Cachexia; B37.0 Candidal stomatitis; E87.6 Hypokalemia; R13.10 Dysphagia, unspecified; E86.0 Dehydration; R53.1 Weakness
CPT/HCPCS: 36415; 71010-TC; 80053; 81003; 81015; 82607; 82746; 83690; 83735; 84100; 84134; 84425; 84484; 85025; 85730; 93005; 93010; 99283-25; G0378

== ENCOUNTER 2019-06-01 16:39 | Inpatient (IN) | payer OTHER ==
[2019-06-01] MEDS ORDERED: LIDOCAINE 5% TOPICAL PATCH TP ONE (17:28)
[2019-06-01] MEDS ORDERED: IBUPROFEN 600 MG TABLET (FP) PO ONE ×2 (17:28→17:37)
--- NOTE | 2019-06-01 17:28 | PDOC ---
History of Present Illness - History of Present Illness Initial Comments: 06/01/19 17:24 73 year old woman with a history of schizophrenia, anorexia and bulimia who presents with 1 week of lower back/buttocks pain that feels like a muscle spasm. She has been taking Execdrin for the symptoms with moderate relief. She reports that the pain has worsened so she came in today. She denies any recent history of falls or trauma and notes that the pain gets worse with movement. She denies urinary retention or incontinence, weakness, numbness or tingling in the legs. She denies any other complaints. ROS GENERAL/CONSTITUTIONAL: No fever or chills. No weakness. CARDIOVASCULAR: No chest pain or shortness of breath RESPIRATORY: No cough, wheezing, or hemoptysis. GASTROINTESTINAL: No nausea, vomiting, diarrhea or constipation. GENITOURINARY: No dysuria, frequency, or change in urination. MUSCULOSKELETAL: No joint or muscle swelling or pain. No neck, + back pain. SKIN: No rash PE GENERAL: Awake, alert, and fully oriented, uncomfortable appearing HEAD: No signs of trauma, normocephalic, atraumatic EYES: EOMI, sclera anicteric, conjunctiva clear ENT: oropharynx clear without exudates. Moist mucosa NECK: Normal ROM, supple LUNGS: No distress, speaks full sentences, clear to auscultation bilaterally HEART: Regular rate and rhythm, normal S1 and S2, no murmurs, rubs or gallops, peripheral pulses normal and equal bilaterally. ABDOMEN: Soft, nontender No guarding, no rebound. No masses BACK: no spinal ttp, + tenderness to L buttock palpation EXTREMITIES : Normal inspection, Normal ROM, no edema. No clubbing or cyanosis. 2+ bilateral patellar and achilles reflexes, normal sensation to touch NEUROLOGICAL: Cranial nerves II through XII grossly intact. Normal speech, no focal sensorimotor deficits SKIN: Warm, Dry, normal turgor, no rashes or lesions noted MDM DDX including but not limited to: r/o fx vs dislocation likely msk ED Course: Patient given motrin, robaxin, lidocaine patch still reports pain, tylenol dosed XR lumbosacral: no actue fx or subluxation appreciated by this program writer and attending on reassessment patient reports that she does not feel that she can walk and wants to stay in the hospital cxr: no acute infiltrate, no pleural effusion or ptx, as read by this program writer Josefina Apple, PGY2 Emergency Medicine <Josefina Apple - Last Filed: 06/01/19 22:12> - General History Source: Patient Exam Limitations: No Limitations <Janice Kramer - Last Filed: 06/02/19 02:03> - General Chief Complaint: Back Pain Stated Complaint: LOWER EXTREMITY PAIN Time Seen by Provider: 06/01/19 17:11 Past History - Past Medical History Anemia: Yes COPD: No Psychiatric Problems: Yes (SCHIZOPHRENIA.) - Psycho Social/Smoking Cessation Hx Smoking History: Never smoked Have you smoked in the past 12 months: No Information on smoking cessation initiated: No Hx Alcohol Use: No Drug/Substance Use Hx: No Substance Use Type: None <Josefina Apple - Last Filed: 06/01/19 22:12> <Janice Kramer - Last Filed: 06/02/19 02:03> - Past Medical History Allergies/Adverse Reactions: Allergies Allergy/AdvReac Type Severity Reaction Status Date / Time No Known Allergies Allergy Verified 06/01/19 17:06 Home Medications: Ambulatory Orders NK [No Known Home Medication] 06/01/19 Review of Systems - Review of Systems Able to Perform ROS?: Yes Constitutional: Yes: See HPI. No: Chills, Fever Respiratory: Yes: See HPI. No: Cough, Shortness of Breath Cardiac (ROS): Yes: See HPI. No: Chest Pain ABD/GI: Yes: See HPI, Nausea, Poor Fluid Intake. No: Abdominal Distended, Constipated, Diarrhea, Vomiting : Yes: See HPI. No: Discharge, Frequency, Flank Pain, Incontinence, Pain, Urgency Musculoskeletal: Yes: Back Pain, Joint Pain, Muscle Pain Integumentary: Yes: See HPI. No: Bruising, Change in Color, Dryness, Erythema, Rash Neurological: Yes: See HPI. No: Headache, Numbness, Paresthesia, Tingling, Tremors, Weakness All Other Systems: Reviewed and Negative <Janice Kramer - Last Filed: 06/02/19 02:03> *Physical Exam - Vital Signs Last Vital Signs Temp Pulse Resp BP Pulse Ox 97.9 F 62 18 109/69 100 06/01/19 17:06 06/01/19 17:06 06/01/19 17:06 06/01/19 17:06 06/01/19 17:06 <Josefina Apple - Last Filed: 06/01/19 22:12> - Vital Signs Last Vital Signs Temp Pulse Resp BP Pulse Ox 98.4 F 78 18 99/66 99 06/01/19 20:45 06/01/19 20:45 06/01/19 20:45 06/01/19 20:45 06/01/19 20:45 <Janice Kramer - Last Filed: 06/02/19 02:03> Heart Score/ECG Review #1 ECG reviewed & interpreted by me at: 23:00 General ECG Interpretation: Sinus Rhythm, Normal Rate, Normal Intervals 06/01/19 23:02 EKG sinus bradycardia 54 bpm, no interval abnormalities, narrow QRS, ST and T wave segments and morphology normal. Nonspecific T wave abnormalities <Janice Kramer - Last Filed: 06/02/19 02:03> ED Treatment Course - LABORATORY CBC & Chemistry Diagram: 06/01/19 21:40 06/01/19 21:40 <Josefina Apple - Last Filed: 06/01/19 22:12> - LABORATORY CBC & Chemistry Diagram: 06/01/19 21:40 06/01/19 21:40 - Medications Given in the ED: ED Medications Discontinued Medications Generic Name Dose Route Start Last Admin Trade Name Omegaq PRN Reason Stop Dose Admin Acetaminophen 1,000 mg 06/01/19 19:23 06/01/19 19:44 Tylenol - PO 06/01/19 19:24 1,000 mg ONCE ONE Administration Ibuprofen 600 mg 06/01/19 17:28 06/01/19 17:41 Motrin - PO 06/01/19 17:29 600 mg ONCE ONE Administration Lidocaine 1 patch 06/01/19 17:28 06/01/19 17:41 Lidoderm Patch - TP 06/01/19 17:29 1 patch ONCE ONE Administration Methocarbamol 500 mg 06/01/19 18:02 06/01/19 18:32 Robaxin - PO 06/01/19 18:03 Not Given ONCE ONE Methocarbamol 1,000 mg 06/01/19 18:02 06/01/19 18:32 Robaxin - PO 06/01/19 18:03 1,000 mg ONCE ONE Administration Oxycodone HCl 5 mg 06/01/19 20:12 06/01/19 20:22 Roxicodone - PO 06/01/19 20:13 5 mg ONCE ONE Administration Potassium Chloride 20 meq 06/01/19 22:34 06/01/19 22:44 Potassium Chloride Oral Liquid PO 06/01/19 22:35 20 meq ONCE ONE Administration <Janice Kramer - Last Filed: 06/02/19 02:03> Discharge <Josefina Apple - Last Filed: 06/01/19 22:12> - Discharge Information Problems reviewed: Yes - Admission Yes <Janice Kramer - Last Filed: 06/02/19 02:03> - Discharge Information Clinical Impression/Diagnosis: Back pain, Hypokalemia Condition: Guarded
[2019-06-01] MEDS ORDERED: LIDOCAINE 5% TOPICAL PATCH ONE (17:37)
[2019-06-01] MEDS ORDERED: METHOCARBAMOL 500 MG TABLET PO ONE ×2 (18:02)
[2019-06-01] MEDS ORDERED: METHOCARBAMOL 500 MG TABLET ONE (18:28)
--- NOTE | 2019-06-01 18:31 | PDOC ---
Documentation entered by Van Barnes SCRIBE, acting as scribe for Janice Kramer MD. Janice Kramer MD: This documentation has been prepared by the Cameron diggs Nirvannie, SCRIBE, under my direction and personally reviewed by me in its entirety. I confirm that the documentation accurately reflects all work, treatment, procedures, and medical decision making performed by me. Attending Attestation - Resident Resident Name: Josefina Apple - ED Attending Attestation I have performed the following: I have examined & evaluated the patient, The case was reviewed & discussed with the resident, I agree w/resident's findings & plan, Exceptions are as noted - HPI HPI: 06/01/19 18:12 [id number] with significant past medical history of schizophrenia, bulimia, and anorexia who presents to the ED with 1 day of worsening lower back and buttock pain described as muscle spasms. Patient endorses taking Excedrin, with minimal relief prompting her arrival to the ED. She denies any trauma to the back or buttocks. She denies any urinary or bowel incontinence. Denies fever, chills, chest pain, SOB, palpitations, dizziness, weakness, N, V, D, abdominal pain, bladder and bowel problems, leg swelling, No sick contacts or travel. No new changes in medications. Allergies: None Past Medical History: schizophrenia, bulimia, and anorexia Social history: Lives with family. No tobacco, ETOH or drug use. Surgical history: None reported. Meds: as documented in EMR PMD: Dr. Rosario 06/01/19 18:31 - Physicial Exam PE: 06/01/19 18:12 cachectic appearing, thin and frail, older than stated age. EOMI, PERRL, nl conjunctiva, anicteric; neck supple. lungs clear, RRR, abdomen soft nontender. Back nontender. LUNDY x4, no focal neuro deficits. No peripheral edema. normal color for ethnicity, WWP. neg SLR. normal symmetric extremities. pelvis stable, FROM at the prox hip, knee and ankle joints. +bilateral buttock TTP, +coccyx pain, no midline lumbar or thoracic or cervical tenderness. 2+ patellar reflexes bilaterally. soft compartments. no crepitus no skin discoloration. no deformities. 12/20/19 18:29 - Medical Decision Making 06/01/19 18:31 Vital Signs Temp Pulse Resp BP Pulse Ox 97.9 F 62 18 109/69 100 06/01/19 17:06 06/01/19 17:06 06/01/19 17:06 06/01/19 17:06 06/01/19 17:06 VS wnl no neuro deficits, 5/5 strength, SILT, patellar reflexes no abdominal pain, distension. no urinary retention or incontinence. unlikely cauda equina/spinal cord pathology Patient with back pain, no trauma no fall. Lumbar sacral x-ray unremarkable, normal alignment, no evidence of compression fracture or bony abnormalities. Patient was given appropriate analgesia, topical Lidoderm patch, ibuprofen/ Tylenol, muscle relaxant, still unable to walk. Should is unable to be discharged will require social work as she lives in a [facility] and does not wish to go back to the ch[facility]. Basic labs are obtained, low potassium will replete. Will admit for PT evaluation, social work and intractable back pain and further work-up, further imaging if warranted. 06/01/19 22:52
[2019-06-01] MEDS ORDERED: ACETAMINOPHEN 500 MG TABLET (FP) PO ONE (19:23)
[2019-06-01] MEDS ORDERED: ACETAMINOPHEN 500 MG TABLET (FP) ONE (19:41)
[2019-06-01] MEDS ORDERED: oxyCODONE HCL 5 MG TABLET PO ONE (20:12)
[2019-06-01] MEDS ORDERED: oxyCODONE HCL 5 MG TABLET ONE (20:20)
--- NOTE | 2019-06-01 21:03 | PN ---
Teaching Attending Note Name of Resident: Izaiah Kapoor ATTENDING PHYSICIAN STATEMENT I saw and evaluated the patient. I reviewed the resident's note and discussed the case with the resident. I agree with the resident's findings and plan as documented. SUBJECTIVE: Patient is a 73 year old woman with a PMH of Schizophrenia, Anorexia and Bulimia who presents with 1 week of lower back/buttocks pain that feels like a muscle spasm. She has been taking Excedrin for the symptoms with moderate relief. She reports that the pain has worsened so she came in today. She denies any recent history of falls or trauma and notes that the pain gets worse with movement. She denies urinary retention or incontinence, weakness, numbness or tingling in the legs. She denies fever, chills, nausea, vomiting, abdominal pain , dysuria, hematuria or frequency. No recent travels or sick contacts. Denies tobacco, alcohol or illicit drug use. OBJECTIVE: Alert and Cachectic Vital Signs Period Temp Pulse Resp BP Sys/Ryan Pulse Ox Last 24 Hr 97.9 F-98.4 F 62-78 18-18 99-109/66-69 99-100 HEENT: No Jaundice, eye redness or discharge, PERRLA, EOMI. Normocephalic, atraumatic. External ears are normal and hearing is grossly intact. No nasal discharge. Neck: Supple, nontender. No palpable adenopathy or thyromegaly. No JVD Chest: Good effort. Clear to auscultation and percussion. Heart: Regular. No S3, rub or murmur Abdomen: Not distended, soft, nontender and no HSM. No rebound or guarding. Normal bowel sounds. Ext: Peripheral pulses intact. No leg edema. Tender in the lower back area. Skin: Warm and dry. No petechiae, rash or ecchymosis. Neuro: Alert. Oriented x3. CN 2-12 grossly intact. Tender with straight leg raising. Sensation grossly intact in all four extremities and DTR are symmetric. Gait not tested for safety reasons. Psych: Appropriate mood and affect. Good insight. Current Medications Generic Name Dose Route Start Last Admin Trade Name Freq PRN Reason Stop Dose Admin Miscellaneous 1 each 06/01/19 22:00 Lidoderm Patch Removal MC [email or web address] [facility] Home Medications Medication Instructions Recorded NK [No Known Home Medication] 06/01/19 Abnormal Lab Results 06/01/19 06/01/19 21:40 21:40 RBC 3.31 L Hgb 10.1 L Hct 30.8 L RDW 16.0 H MPV 7.3 L Neutrophils % 82.9 H D Potassium 3.3 L BUN 27.9 H Creatinine 0.5 L Calcium 8.3 L Total Protein 5.2 L Albumin 2.7 L ASSESSMENT AND PLAN: 1. Low back pain and Inability to walk - Lumbosacral xray does not show any fracture or subluxation. Will get lumbosacral MRI for further evaluation. Treat with lidocaine patch, IV morphne and consider steroids after MRI. CXR shows cardiomegaly, calcified aortic knob and hilar prominence. Hypokalemia is unexplained. Will check Mg+ and give IV and PO KCL. Consult PT and Neurology. Will continue comprehensive care for all of patients comorbid conditions including rehanger evaluation for cachexia. 2. Hypoalbuminemia - Possibly due to combined effects of malnutrition and inflammation associated with comorbid chronic conditions. Will ensure adequate dietary protein intake and also consult rehanger. Urinalysis is pending. 3. CKD? - Cause unclear. Possibly was ingesting NSAIDS!. Needs basic nephrologic workup - kidney sonogram, PTH, urinalysis, urine albumin/creatinine ratio, CPK, hydrate gently and monitor urine output. Will consult nephrology and avoid nephrotoxic agents such as NSAIDS, aminoglycosides, contrast dyes and certain Alternative medicine products. 4. Anemia - Cause unclear, but may be partly due to renal failure. Will do basic anemia work up including serial stool guaiacs, reticulocyte count and iron studies. Would benefit from Procrit therapy once iron replete. 5. DVT prophylaxis - Heparin 5000u sq tid. 6. Advance directives - Full code
[2019-06-01 22:08] LABS: BASO % 0.3 % (0-2.0); EOS % 0.3 % (0-4.5); HEMATOCRIT 30.8 % (32.4-45.2); HEMOGLOBIN 10.1 GM/dL (10.7-15.3); LYMPH % 11.7 % (8-40); MCH 30.5 pg (25.7-33.7); MCHC 32.9 g/dl (32.0-36.0); MEAN CELL VOLUME 92.8 fl (80-96); MEAN PLT VOLUME 7.3 fl (7.5-11.1); MONO % 4.8 % (3.8-10.2); NEUT % 82.9 % (42.8-82.8); PLATELET COUNT 286 K/MM3 (134-434); RBC 3.31 M/mm3 (3.60-5.2); WHITE BLOOD COUNT 9.2 K/mm3 (4.0-10.0)
[2019-06-01] MEDS: SODIUM CHLORIDE 1,000 ML IV SCH (22:26)
[2019-06-01] MEDS: LIDOCAINE PATCH REMOVAL MC SCH (22:27)
[2019-06-01 22:33] LABS: ALBUMIN 2.7 g/dl (3.4-5.0); BILIRUBIN,TOTAL 0.6 mg/dL (0.2-1); BLOOD UREA NITROGEN 27.9 mg/dL (7-18); CALCIUM 8.3 mg/dL (8.5-10.1); CREATININE 0.5 mg/dL (0.55-1.3); POTASSIUM 3.3 mmol/L (3.5-5.1); TOT PROT 5.2 g/dl (6.4-8.2)
[2019-06-01] MEDS ORDERED: POTASSIUM CHLORIDE ORAL LIQUID 20 MEQ/15 ML PO ONE (22:34)
[2019-06-01] MEDS ORDERED: POTASSIUM CHLORIDE ORAL LIQUID 20 MEQ/15 ML ONE (22:42)
--- NOTE | 2019-06-02 03:59 | HP ---
CHIEF COMPLAINT: PCP: Marlene HISTORY OF PRESENT ILLNESS: 73F w/ pmh of anorexia, insomonia presents to [facility] w/ complaint of worsening lower back pain w/a BLE spasming pain x1week. Pain is worse with walking, up to 10/10. Minimal relief with excedrin. Improved after ED pain meds. Minimal symptoms while supine. Believes that her pain is related to the cold weather, and walking a lot. Has been using a cane x1week. Prior to this week, doesn't use any devices and can acheived ADLs independently. Denies recent trauma, fall , numbness, decreased sensation, fecal/urinary incontinence. Notably, 1 week prior, got kicked out of sister's house and pt is currently staying at a longterm. States that she has poor apeptite, losing 50lbs in 5ys. Claimis that she has had inpatient physical rehab admissions for her severe deconditioning from malnutrition. ER course was notable for: (1) XR L-spine --pending read (2) Pain meds: oxycodone 5mg, acetaminophen 1000mg, motrin, robaxin, lidoderm (3) EKG: sinus anne Recent Travel: none PAST MEDICAL HISTORY: ?schizo, insomnia, anorexia, ?bulimia PAST SURGICAL HISTORY: denies Social History: Smoking: distant smoking(1 mo, 50ys prior) Alcohol: denies Drugs: denies Allergies No Known Allergies Allergy (Verified 06/01/19 17:06) HOME MEDICATIONS: Home Medications Medication Instructions Recorded NK [No Known Home Medication] 06/01/19 REVIEW OF SYSTEMS CONSTITUTIONAL: generalized weakness Absent: fever, chills, diaphoresis, malaise, loss of appetite, weight change HEENT: Absent: rhinorrhea, nasal congestion, throat pain, throat swelling, difficulty swallowing, mouth swelling, ear pain, eye pain, visual changes CARDIOVASCULAR: Absent: chest pain, syncope, palpitations, irregular heart rate, lightheadedness , peripheral edema RESPIRATORY: Absent: cough, shortness of breath, dyspnea with exertion, orthopnea, wheezing, stridor, hemoptysis GASTROINTESTINAL: constipation Absent: abdominal pain, abdominal distension, nausea, vomiting, diarrhea, melena, hematochezia GENITOURINARY: Absent: dysuria, frequency, urgency, hesitancy, hematuria, flank pain, genital pain MUSCULOSKELETAL: lower back pain, BLE muscle spasm Absent: myalgia, arthralgia, joint swelling, back pain, neck pain SKIN: Absent: rash, itching, pallor NEUROLOGIC: Absent: headache, focal weakness or paresthesias, dizziness, unsteady gait, seizure, mental status changes, bladder or bowel incontinence PHYSICAL EXAMINATION Vital Signs - 24 hr 06/01/19 06/01/19 06/02/19 17:06 20:45 00:09 Temperature 97.9 F 98.4 F Pulse Rate 62 Pulse Rate [ 78 76 Left Radial] Respiratory 18 18 18 Rate Blood Pressure 109/69 Blood Pressure 99/66 103/80 [Left Arm] O2 Sat by Pulse 100 99 97 Oximetry (%) 06/02/19 06/02/19 01:18 01:36 Temperature 97.8 F Pulse Rate 54 L Pulse Rate [ Left Radial] Respiratory 18 18 Rate Blood Pressure 104/62 Blood Pressure [Left Arm] O2 Sat by Pulse 97 Oximetry (%) GENERAL: Awake, alert, and fully oriented, in no acute distress. HEAD: NC/AT. Severe temporal wasting EYES: sunken eyes, extraocular movements intact, sclera anicteric, conjunctiva clear. No lid lag. EARS, NOSE, THROAT: Ears normal, nares patent, oropharynx clear without exudates. Moist mucous membranes. NECK: Normal range of motion, supple without lymphadenopathy, JVD, or masses. Dry oral mucosa LUNGS: Breath sounds equal, clear to auscultation bilaterally. No wheezes, and no crackles. No accessory muscle use. No supplemental O2 HEART: Regular rate and rhythm, normal S1 and S2 without murmur, rub or gallop. ABDOMEN: Soft, nontender, not distended, normoactive bowel sounds, no guarding, no rebound, no masses. No hepatomegaly or splenomegaly. MUSCULOSKELETAL: Lower back paraspinal muscle ropiness, No midline TTP of T or L -spine. Stiffened legs, pain with PROM of hip flexors, knee flexion. TTP of hamstrings UPPER EXTREMITIES: 2+ pulses, warm, well-perfused. LOWER EXTREMITIES: 1+ pulses, warm, well-perfused. No calf tenderness. No peripheral edema. NEUROLOGICAL: 5/5 BUE strength. Normal speech. Gait not observed PSYCHIATRIC: Cooperative. Appropriate mood and affect. SKIN: Warm, dry, normal turgor, no rashes or lesions noted, normal capillary refill. Laboratory Results - last 24 hr 06/01/19 06/01/19 21:40 21:40 WBC 9.2 RBC 3.31 L Hgb 10.1 L Hct 30.8 L MCV 92.8 MCH 30.5 MCHC 32.9 RDW 16.0 H Plt Count 286 MPV 7.3 L Absolute Neuts (auto) 7.6 Neutrophils % 82.9 H D Lymphocytes % 11.7 D Monocytes % 4.8 Eosinophils % 0.3 Basophils % 0.3 Nucleated RBC % 0 Sodium 141 Potassium 3.3 L Chloride 106 Carbon Dioxide 27 Anion Gap 8 BUN 27.9 H Creatinine 0.5 L Est GFR (CKD-EPI)AfAm 112.07 Est GFR (CKD-EPI)NonAf 96.69 Random Glucose 103 Calcium 8.3 L Total Bilirubin 0.6 AST 18 ALT 13 Alkaline Phosphatase 107 Total Protein 5.2 L Albumin 2.7 L ASSESSMENT/PLAN: 73F w/ pmh of anorexia, insomonia presents to [facility] w/ complaint of worsening lower back pain w/a BLE spasming pain x1week. Admitted for frailty, intractable pain impeding ambulation. Pain possibly due to worsening chronic MSK pain. Patient has poor follow-up as she is non-domiciled. Has social work-related issues #Lower back pain w/ BLE pain --likely 2/2 MSK and deconditioning > XR L-spine --pending read > SUGAR L-spine --pending - pain regimen: --ED: oxycodone 5mg, acetaminophen 1000mg, motrin, robaxin, lidoderm --ibuprofen 650mg q6h PRN - PT evaluation --pending #Severe protein malnutrition > Alb 2.7 > BMI 15.3 - surgery teacher consult --pending #Sinus Anne > EKG(06/01/19): sinus anne(54bpm), QTc 440 - fu AM EKG #normocytic anemia > Hgb 10.1, MCV 92.8 - fu iron studies FEN - regular diet + Ensure #DVT prophylaxis - enoxaparin DISPO: - social work: will likely have post-hospital needs Family Medical History Family History: Denies Visit type - Emergency Visit Emergency Visit: Yes ED Registration Date: 06/02/19 Care time: The patient presented to the Emergency Department on the above date and was hospitalized for further evaluation of their emergent condition. - New Patient This patient is new to me today: Yes Date on this admission: 06/02/19 - Critical Care Critical Care patient: No ATTENDING PHYSICIAN STATEMENT I saw and evaluated the patient. I reviewed the resident's note and discussed the case with the resident. I agree with the resident's findings and plan as documented. SUBJECTIVE: OBJECTIVE: ASSESSMENT AND PLAN:
[2019-06-02 08:49] LABS: HEMATOCRIT 28.9 % (32.4-45.2); HEMOGLOBIN 9.6 GM/dL (10.7-15.3); MCH 30.8 pg (25.7-33.7); MCHC 33.3 g/dl (32.0-36.0); MEAN CELL VOLUME 92.5 fl (80-96); MEAN PLT VOLUME 7.4 fl (7.5-11.1); PLATELET COUNT 276 K/MM3 (134-434); RBC 3.12 M/mm3 (3.60-5.2); RDW 16.3 % (11.6-15.6); WHITE BLOOD COUNT 6.2 K/mm3 (4.0-10.0)
[2019-06-02 09:41] LABS: ALBUMIN 2.5 g/dl (3.4-5.0); BILIRUBIN,TOTAL 0.4 mg/dL (0.2-1); BLOOD UREA NITROGEN 23.6 mg/dL (7-18); CALCIUM 8.6 mg/dL (8.5-10.1); CREATININE 0.5 mg/dL (0.55-1.3); MAGNESIUM 2.1 mg/dL (1.8-2.4); PHOSPHOROUS 2.3 mg/dL (2.5-4.9); POTASSIUM 3.1 mmol/L (3.5-5.1); TOT PROT 5.1 g/dl (6.4-8.2)
[2019-06-02] MEDS: ENOXAPARIN NA (PORCINE) 40 MG/0.4 ML DISP.SYRIN SQ SCH (10:37)
--- NOTE | 2019-06-02 11:50 | PN ---
Progress Note, Physician Chief Complaint: lower back pain History of Present Illness: has been having pain for 1 week, no fall , no trauma, non radiating, and no associated numbness, no paresthesias , - Current Medication List Current Medications: Active Medications Enoxaparin Sodium (Lovenox -) 40 mg SQ DAILY [facility] Last Admin: 06/02/19 10:37 Dose: 40 mg Sodium Chloride (Normal Saline -) 1,000 mls @ 0 mls/hr IV ASDIR [facility] Last Admin: 06/01/19 22:26 Dose: 1,000 mls/hr Ibuprofen (Motrin -) 600 mg PO Q6H PRN PRN Reason: FEVER Miscellaneous (Lidoderm Patch Removal) 1 each MC DAILY@2200 [facility] Last Admin: 06/01/19 22:27 Dose: Not Given - Objective Vital Signs: Vital Signs Temperature 97.5 F L 06/02/19 06:00 Pulse Rate 76 06/02/19 10:00 Respiratory Rate 20 06/02/19 10:00 Blood Pressure 104/68 06/02/19 10:00 O2 Sat by Pulse Oximetry (%) 97 06/02/19 01:36 Constitutional: Yes: Well Nourished, Calm Eyes: Yes: Conjunctiva Clear, EOM Intact HENT: Yes: Atraumatic, Normocephalic Neck: Yes: Supple, Trachea Midline Cardiovascular: Yes: Regular Rate and Rhythm Respiratory: Yes: Regular Gastrointestinal: Yes: Normal Bowel Sounds Musculoskeletal: Yes: Back Pain (non tender spine, SLR negative,) Extremities: Yes: WNL Edema: No Neurological: Yes: WNL ...Motor Strength: WNL Labs: CBC, BMP 06/02/19 08:23 06/02/19 08:23 Impression/Plan Impression/Plan: 73F w/ pmh of anorexia, insomonia presents to [facility] w/ complaint of worsening lower back pain w/a BLE spasming pain x1week. Admitted for frailty, intractable pain impeding ambulation. #Lower back pain w/ BLE pain --likely 2/2 MSK and deconditioning XR L-spine --negative official report pending, will fu SUGAR L-spine --pending - pain regimen: continue, ibuprofen 650mg q6h PRN - PT evaluation --pending # low k level supplement . and recheck the level in the evening, #Severe protein malnutrition and h/o anorexia, see the casing splitter, #normocytic anemia, stable, > Hgb 10.1, MCV 92.8 - fu iron studies #DVT prophylaxis - enoxaparin director of social work evaluation for safe dc, Visit type - Emergency Visit Emergency Visit: No - New Patient This patient is new to me today: Yes Date on this admission: 06/02/19 - Critical Care Critical Care patient: No - Discharge Referral Referred to [facility] Med P.C.: No
--- NOTE | 2019-06-02 14:09 | EKG ---
Test Reason : Blood Pressure : / mmHG Vent. Rate : 054 BPM Atrial Rate : 054 BPM P-R Int : 118 ms QRS Dur : 090 ms QT Int : 464 ms P-R-T Axes : 037 -02 061 degrees QTc Int : 440 ms SINUS BRADYCARDIA T WAVE ABNORMALITY, CONSIDER ANTERIOR ISCHEMIA ABNORMAL ECG WHEN COMPARED WITH ECG OF 11-APR-2017 21:20, VENT. RATE HAS DECREASED BY 30 BPM QT HAS SHORTENED Confirmed by JOSE LUIS LUJAN MD ([id number]) on 06/02/2019 2:09:09 PM Referred By: Confirmed By:JOSE LUIS LUJAN MD
[2019-06-02 18:50] LABS: CALCIUM 8.6 mg/dL (8.5-10.1); CREATININE 0.6 mg/dL (0.55-1.3); POTASSIUM 3.4 mmol/L (3.5-5.1)
[2019-06-02 21:20] LABS: EPI CELLS 2.3 /HPF (0-5/HPF); HYALINE CASTS 3 /lpf (0-8); URINE APPEARANCE CLOUDY; URINE BACTERIA 4748.9 /hpf (NEGATIVE); URINE BILIRUBIN NEGATIVE (NEGATIVE); URINE COLOR YELLOW; URINE GLUCOSE (UA) NEGATIVE (NEGATIVE); URINE KETONE TRACE (NEGATIVE); URINE LEUK ESTERASE NEGATIVE (NEGATIVE); URINE NITRITE NEGATIVE (NEGATIVE); URINE PROTEIN TRACE (NEGATIVE); URINE RBC 2 /hpf (0-4)
[2019-06-02] MEDS: LIDOCAINE PATCH REMOVAL MC SCH (21:32)
[2019-06-02] MEDS: POTASSIUM CHLORIDE TABS 20 MEQ TABLET.ER (FP) PO SCH (21:32)
[2019-06-02] MEDS: SODIUM CHLORIDE 1,000 ML IV SCH (21:36)
[2019-06-02] MEDS: IBUPROFEN 600 MG TABLET (FP) PO PRN (21:38)
[2019-06-02 23:08] LABS: URINE WBC 52.8 /hpf (0-5); YEAST NONE SEEN (NEGATIVE)
[2019-06-03 09:05] LABS: BASO % 1.2 % (0-2.0); EOS % 1.9 % (0-4.5); HEMATOCRIT 33.7 % (32.4-45.2); HEMOGLOBIN 11.2 GM/dL (10.7-15.3); LYMPH % 17.4 % (8-40); MCH 30.9 pg (25.7-33.7); MCHC 33.2 g/dl (32.0-36.0); MEAN PLT VOLUME 7.3 fl (7.5-11.1); MONO % 4.7 % (3.8-10.2); NEUT % 74.8 % (42.8-82.8); PLATELET COUNT 331 K/MM3 (134-434); RBC 3.62 M/mm3 (3.60-5.2); RDW 16.3 % (11.6-15.6); WHITE BLOOD COUNT 4.9 K/mm3 (4.0-10.0)
[2019-06-03] MEDS: ENOXAPARIN NA (PORCINE) 40 MG/0.4 ML DISP.SYRIN SQ SCH (09:41)
[2019-06-03] MEDS: POTASSIUM CHLORIDE TABS 20 MEQ TABLET.ER (FP) PO SCH (09:42)
[2019-06-03 10:12] LABS: ALBUMIN 2.5 g/dl (3.4-5.0); BILIRUBIN,TOTAL 0.4 mg/dL (0.2-1); CALCIUM 8.6 mg/dL (8.5-10.1); CREATININE 0.6 mg/dL (0.55-1.3); POTASSIUM 3.5 mmol/L (3.5-5.1); TOT PROT 5.3 g/dl (6.4-8.2)
--- NOTE | 2019-06-03 11:22 | PN ---
Progress Note (short form) - Note Progress Note: She is comfortable but still in severe pain unable to move at all. Even if I try to move her leg she is in severe pain denies any urinary incontinence or focal weakness in the legs or numbness. She has no pain when she is resting in the bed. Vital Signs Period Temp Pulse Resp BP Sys/Ryan Pulse Ox Last 24 Hr 97.2 F-98 F 66-78 18-18 108-123/60-73 96 She has no past medical history according to the patient Physical examination She is comfortable HEENT NAD Neck supple Lungs clear Heart S1-S2 positive normal Extremities negative cyanosis clubbing edema Locomotor she is extremely tender in her back and both sides straight leg raising test are positive above 15 degree of leg elevation. Neurologically she is alert awake oriented. Diagnostic tests done in the hospital including MRI which showed just spinal stenosis disc degeneration but no disc herniation. Assessment and plan 73F w/ pmh of anorexia, insomonia presents to [facility] w/ complaint of worsening lower back pain w/a BLE spasming pain x1week. Admitted for frailty, intractable pain impeding ambulation. #Lower back pain w/ BLE pain --likely 2/2 MSK and deconditioning XR L-spine --negative official report pending, will fu SUGAR L-spine -Report as above is in the chart I reviewed it. - pain regimen: continue, ibuprofen 650mg q6h PRN Add baclofen muscle relaxant - PT evaluation --pending But I think physical therapy should help her a lot # low k level supplement . Repeat labs are normal #Severe protein malnutrition and h/o anorexia, see the devops engineer, #normocytic anemia, stable, > Hgb 10.1, MCV 92.8 - fu iron studies #DVT prophylaxis - enoxaparin director social welfare evaluation for safe dc,Dietary recommendations seen will start her on protein replacement. Visit type - Emergency Visit Emergency Visit: Yes ED Registration Date: 06/02/19 Care time: The patient presented to the Emergency Department on the above date and was hospitalized for further evaluation of their emergent condition. - New Patient This patient is new to me today: Yes Date on this admission: 06/03/19 - Critical Care Critical Care patient: No - Discharge Referral Referred to [facility] Med P.C.: No
[2019-06-03] MEDS: BACLOFEN 10 MG TABLET (FP) PO PRN ×2 (14:24→23:02)
[2019-06-03 15:44] VITALS: BMI 14.2
[2019-06-04] MEDS: AMINO ACIDS/PROTEIN HYDROLYS 30 ML LIQUID.PKT PO SCH (07:59)
[2019-06-04] MEDS: BACLOFEN 10 MG TABLET (FP) PO PRN ×2 (07:59→15:31)
[2019-06-04] MEDS: IBUPROFEN 600 MG TABLET (FP) PO PRN (10:35)
[2019-06-04] MEDS: POTASSIUM CHLORIDE TABS 20 MEQ TABLET.ER (FP) PO SCH (10:38)
[2019-06-04] MEDS: ENOXAPARIN NA (PORCINE) 40 MG/0.4 ML DISP.SYRIN SQ SCH (10:38)
--- NOTE | 2019-06-04 11:53 | PN ---
Teaching Attending Note ATTENDING PHYSICIAN STATEMENT I saw and evaluated the patient. I reviewed the resident's note and discussed the case with the resident. I agree with the resident's findings and plan as documented. SUBJECTIVE: -distended bladder -
--- NOTE | 2019-06-04 14:01 | PN ---
Progress Note (short form) - Note Progress Note: Hospitalist Medicine lying in bed, still c/o pain concentrated at R hip. Requesting bengay. Neuro sx and pain mgmt have been consulted Vitals 06/04/19 06:00 Temperature 97.8 F Pulse Rate 69 Respiratory 20 Rate Blood Pressure 124/71 Physical Exam general: resting in bed, in NAD HEENT: NCAT neck: supple cardio: S1, S2 rrr. no r/m/g pulm: cta b/l abdomen: nontender,nondistended MSK: +difficulty with active and passive ROM; able to wiggle toes. unable to flex, extend hip neuro: librarian head 2-12 grossly intact Laboratory Tests 06/03/19 06/03/19 08:33 08:33 WBC 4.9 Hgb 11.2 Hct 33.7 D Plt Count 331 Sodium 143 Potassium 3.5 Chloride 106 Carbon Dioxide 31 BUN 15.0 Creatinine 0.6 Random Glucose 109 H Total Protein 5.3 L Albumin 2.5 L Imaging 06/01: Lumbar spine XR: since prior study, pt is rotated to the left. prominent heart, sclerotic knob, prominent zeeshan but clear lung caldwell. may be hiatal hernia. 06/01: CXR: scoliosis with convexity to the right, clear lungs, sclerotic, normal zeeshan and enlarged heart. an acute chest process is not seen. 06/02: Lumbar spine MRI: grade 2 spondylolithesis of S1 over S2 sequela most probably to an old injury. reevaluation when possible with MRI or CT scan of the sacrum with reformatted images recommended. no suspicious underlying pathologic bone marrow replacement or prevertebral soft tissue masses or hematoma suspected at this study. no evidence of midline or foraminal dissc herniation. no evidence of spinal stenosis. distended bladder Assessment/Plan 73F w/ pmh of anorexia, insomnia, who presented to [facility] ED w/ complaint of worsening lower back pain a/w BLE spasms and pain x 1week. Admitted for frailty , and intractable pain impeding ambulation. #Lower back pain a/w BLE pain likely 2/2 MSK, deconditioning -XR spine without acute changes -MRI L-spine noted as above -pending neurosx, pain mgmt evals -on baclofen, motrin, bengay for pain control -neurosx: Dr. Choudhri -pain mgmt: Dr. Reich #severe protein malnutrition, h/o anorexia -dietary consult: recommend ensure enlive, prosource -may benefit from eating disorders facility upon d/c #normocytic anemia, stable -w/ low TIBC, may be 2/2 inflammation vs. ACD #F/E/N not requiring IVF at this time continue to follow lytes; monitor for refeeding syndrome. reg diet, with ensure supplementation #PPX DVT: lovenox #Dispo monitoring on med-surg await neurosx, pain mgmt evals; may need additional imaging of sacrum. will need aid w/ disposition, as from skilled nursing <BrittanyJuani - Last Filed: 06/04/19 17:16> - Note Progress Note: Seen and examined; please refer to resident note for further historical information. I personally reviewed all lu historical and PE findings as well as reviewed all diagnostics, imaging, and vitals. Discussed at length with the resident team and indicated consulting services. Continues to require inpatient treatment and monitoring for their acute medical issues. 10 sys ROS done and negative aside from HPI VS, labs, imaging reviewed NAD AAO resting in bed NC AT EOMI PERRLA HR wnl, s1/2+ NT ND +BS CN2-12 wnl, no fnd Postop dressing c/d/i A/P: Problems include: -Acute on chronic pain secondary to underlying likely old musculoskeletal issues (monitor use of PRNs and taper based on needs) -Lumbosacral spondylolisthesis, likely chronic (per above) -Chronic normocytic anemia, likely AOCD. (Iron studies noted, XF perameters per guidelines. 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 If GERD sx can start H2 jorden) -Hx anorexia, severe protein-calorie malnutrition (psych to be consulted if no headway made with nutrition) -Distended Bladder (Denies issues; FU with bladder scan. Staples PRN and call urology if needed. UA pending) -Psych hx (obtain records from OP care, considering consult) Full Code <Florin Johns - Last Filed: 06/05/19 15:38>
[2019-06-04] MEDS: METHYL SALICYLATE/MENTHOL OINT 30 GM TUBE TP SCH (15:30)
[2019-06-05 08:29] LABS: BASO % 0.7 % (0-2.0); HEMATOCRIT 31.6 % (32.4-45.2); HEMOGLOBIN 10.4 GM/dL (10.7-15.3); LYMPH % 24.5 % (8-40); MCH 30.6 pg (25.7-33.7); MCHC 33.1 g/dl (32.0-36.0); MEAN CELL VOLUME 92.4 fl (80-96); MEAN PLT VOLUME 7.2 fl (7.5-11.1); NEUT % 61.8 % (42.8-82.8); PLATELET COUNT 415 K/MM3 (134-434); RBC 3.42 M/mm3 (3.60-5.2); WHITE BLOOD COUNT 6.1 K/mm3 (4.0-10.0)
[2019-06-05 08:53] LABS: BLOOD UREA NITROGEN 16.4 mg/dL (7-18); CALCIUM 8.7 mg/dL (8.5-10.1); CREATININE 0.4 mg/dL (0.55-1.3); MAGNESIUM 2.2 mg/dL (1.8-2.4); PHOSPHOROUS 3.6 mg/dL (2.5-4.9); POTASSIUM 4.7 mmol/L (3.5-5.1)
[2019-06-05] MEDS: ENOXAPARIN NA (PORCINE) 40 MG/0.4 ML DISP.SYRIN SQ SCH (10:45)
[2019-06-05] MEDS: POTASSIUM CHLORIDE TABS 20 MEQ TABLET.ER (FP) PO SCH (10:45)
[2019-06-05] MEDS: AMINO ACIDS/PROTEIN HYDROLYS 30 ML LIQUID.PKT PO SCH (10:45)
[2019-06-05] MEDS: METHYL SALICYLATE/MENTHOL OINT 30 GM TUBE TP SCH (10:46)
--- NOTE | 2019-06-05 12:09 | PN ---
Progress Note (short form) - Note Progress Note: Hospitalist Medicine Resting in bed, c/o pain in R hip still. Feels "awful." Has had trouble with PT Vitals 06/05/19 05:27 Temperature 97.9 F Pulse Rate 82 Respiratory 20 Rate Blood Pressure 127/80 Physical Exam general: resting in bed HEENT: NCAT neck: supple cardio: S1, S2 rrr. no r/m/g pulm: cta b/l abdomen: nontender,nondistended MSK: unable to complete active, passive ROM; hip flexion, extension neuro: form grader operator 2-12 grossly intact Laboratory Tests 06/05/19 06/05/19 08:03 08:03 WBC 6.1 Hgb 10.4 L Hct 31.6 L Plt Count 415 D Sodium 138 Potassium 4.7 Chloride 104 Carbon Dioxide 29 BUN 16.4 Creatinine 0.4 L Random Glucose 98 Imaging 06/01: Lumbar spine XR: since prior study, pt is rotated to the left. prominent heart, sclerotic knob, prominent zeeshan but clear lung caldwell. may be hiatal hernia. 06/01: CXR: scoliosis with convexity to the right, clear lungs, sclerotic, normal zeeshan and enlarged heart. an acute chest process is not seen. 06/02: Lumbar spine MRI: grade 2 spondylolithesis of S1 over S2 sequela most probably to an old injury. reevaluation when possible with MRI or CT scan of the sacrum with reformatted images recommended. no suspicious underlying pathologic bone marrow replacement or prevertebral soft tissue masses or hematoma suspected at this study. no evidence of midline or foraminal dissc herniation. no evidence of spinal stenosis. distended bladder Assessment/Plan 73F w/ pmh of anorexia, insomnia, who presented to [facility] ED w/ complaint of worsening lower back pain a/w BLE spasms and pain x 1week. Admitted for frailty , and intractable pain impeding ambulation. #Lower back pain a/w BLE pain likely 2/2 MSK, deconditioning -XR spine without acute changes -MRI L-spine noted as above -pending neurosx, pain mgmt evals -d/w neurosx: will f/u CT L-spine -on baclofen, tylenol (scheduled), motrin, bengay for pain control -started on effexor for neuropathic pain -neurosx: Dr. Tolentino -pain mgmt: Dr. Reich #?hx schizophrenia -seen by psych -call placed to [facility] as w/ recent hx hospitalization, awaiting call back -no record of meds at pt's pharmacy -Psych: Dr. Madrigal #severe protein malnutrition, h/o anorexia -dietary consult: recommend ensure enlive, prosource -may benefit from eating disorders facility upon d/c #normocytic anemia, stable -w/ low TIBC, may be 2/2 inflammation vs. ACD #F/E/N not requiring IVF at this time continue to follow lytes; monitor for re-feeding syndrome. reg diet, with ensure supplementation #PPX DVT: lovenox #Dispo monitoring on med-surg await neurosx, pain mgmt evals will need aid w/ disposition, as [facility] . will likely need SNF <Juani Soto - Last Filed: 06/05/19 15:20> - Note Progress Note: Seen and examined; please refer to resident note for further historical information. I personally reviewed all lu historical and PE findings as well as reviewed all diagnostics, imaging, and vitals. Discussed at length with the resident team and indicated consulting services. Continues to require inpatient treatment and monitoring for their acute medical issues. 10 sys ROS done and negative aside from HPI VS, labs, imaging reviewed NAD AAO resting in bed NC AT EOMI PERRLA HR wnl, s1/2+ NT ND +BS CN2-12 wnl, no fnd Postop dressing c/d/i A/P: Patient presents of ongoing back pain and denied any psych hx to me which disagrees with prior documentation. Her imaging findings were discussed with Dr. Tolentino who requests additional CT of L-spine without contrast to better visualize the sacrum. He doesn't feel that she is a good operative candidate which we do concur with. Obtaining psych records and FU with Dr. Wilhelm as I believe that her pain is likely implicated from a neuropsychiatric source. Problems include: -Acute on chronic pain secondary to underlying likely old musculoskeletal issues (monitor use of PRNs and taper based on needs) -Lumbosacral spondylolisthesis, likely chronic (per above) -Chronic normocytic anemia, likely AOCD. (Iron studies noted, XF perameters per guidelines. 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 If GERD sx can start H2 jorden) -Hx anorexia, severe protein-calorie malnutrition (Nutrition consult, checking B12, obtain old psych records. Checking prealbumin. Monitor Phos, etc. for refeeding syndrome) -Distended Bladder (Denies issues; FU with bladder scan. Staples PRN and call urology if needed. UA pending) -Underlying Schizophrenia DVT px reviewed GI px not indicated Full Code <Florin Johns - Last Filed: 06/05/19 15:42>
[2019-06-05] MEDS ORDERED: IBUPROFEN 400 MG TABLET (FP) PO PRN (13:36)
[2019-06-05] MEDS ORDERED: PT OWN MED DRAWER 7, Y5N ONE (13:49)
--- NOTE | 2019-06-05 14:33 | CON.PSY ---
Psychiatry Consult Chief Complaint: 73 Wilfredo old clive with a l;ifeling history of SChizophrenia just discjharged from [facility] admitted here. ?? Conversion?? on Effexor . noemí historian as angelina as Psych meds . Staff report that she can be manipulative during care. - Previous Psychiatric Treatment Outpatient: None Inpatient: Within the last 12 months - Previous Substance Abuse Treatment Outpatient: None Inpatient: None - Reason for Previous Treatment Reason for Previous Treatment: Biploar Illness, Psychotic Episode - Current Medications Current Medications: Active Medications Acetaminophen (Tylenol -) 1,000 mg PO TID [facility] Amino Acids (Prosource No Carb Liquid Pkt) 30 ml PO DAILY@0800 [facility] Last Admin: 06/05/19 10:45 Dose: 30 ml Baclofen (Lioresal -) 10 mg PO TID PRN PRN Reason: PAIN Last Admin: 06/04/19 15:31 Dose: 10 mg Enoxaparin Sodium (Lovenox -) 40 mg SQ DAILY [facility] Last Admin: 06/05/19 10:45 Dose: 40 mg Ibuprofen (Motrin -) 400 mg PO Q6H PRN PRN Reason: FEVER Methyl Salicylate (Magdaleno-Connolly -) 1 applic TP DAILY [facility] Last Admin: 06/05/19 10:46 Dose: 1 applic Potassium Chloride (K-Dur -) 20 meq PO DAILY [facility] Last Admin: 06/05/19 10:45 Dose: 20 meq Venlafaxine HCl (Effexor Xr -) 37.5 mg PO DAILY [facility] - Allergies Allergies: Allergies Allergy/AdvReac Type Severity Reaction Status Date / Time No Known Allergies Allergy Verified 06/01/19 17:06 - Current Living Status Usual Living Arrangement: With Child - Current Mental Status Evaluation Appearance: Well Groomed Attitude: Cooperative - Affect Affect: Constrictive Appropriateness: Appropriate to Content - Mood Mood: Euthymic - Speech/Language Expressive: Coherent - Psychomotor Activity Psychomotor Activity: Slowed - Thought Process Thought Process: Intact - Thought Content Hallucinations: Absent Delusions: Absent - Self Perception Self Perception: No Impairment - Cognition Attention: Alert Orientation: Time Memory, Immediate Recall: Intact Memory, Short Term: 2/3 Memory, Remote with Promptin/3 - Concentration Serial Sevens Intact: No Simple Calculations Intact: Yes - Abstraction Proverb Interpretation: Intact Judgement: Minimally Impaired - Insight Insight: Intact - Impulse Control Impulse Control: Minimally Impaired - Suicidal Ideation Suicidal Ideation: No - Homicidal Ideation Homicidal Ideation: No Assessment/Plan 1) no EVIDENCVE OF ANY conversion disorder. 2) Long History of Schizophrenia. 3) Obtain and start SCizophrenia meds.
[2019-06-05] MEDS: ACETAMINOPHEN 500 MG TABLET (FP) PO SCH ×2 (14:53→22:22)
[2019-06-05] MEDS: VENLAFAXINE HCL 37.5 MG E.R. CAPSULE (FP) PO SCH (14:55)
[2019-06-05] MEDS: BACLOFEN 10 MG TABLET (FP) PO PRN (21:06)
[2019-06-06] MEDS: ACETAMINOPHEN 500 MG TABLET (FP) PO SCH ×3 (06:13→21:14)
[2019-06-06 08:08] LABS: BASO % 0.6 % (0-2.0); EOS % 1.4 % (0-4.5); HEMATOCRIT 31.9 % (32.4-45.2); HEMOGLOBIN 10.5 GM/dL (10.7-15.3); LYMPH % 19.7 % (8-40); MCH 30.6 pg (25.7-33.7); MCHC 33.1 g/dl (32.0-36.0); MEAN CELL VOLUME 92.6 fl (80-96); MEAN PLT VOLUME 7.3 fl (7.5-11.1); MONO % 13.3 % (3.8-10.2); PLATELET COUNT 470 K/MM3 (134-434); RBC 3.44 M/mm3 (3.60-5.2); WHITE BLOOD COUNT 8.4 K/mm3 (4.0-10.0)
[2019-06-06 08:19] LABS: ALBUMIN 2.4 g/dl (3.4-5.0); BILIRUBIN,TOTAL 0.2 mg/dL (0.2-1); BLOOD UREA NITROGEN 37.9 mg/dL (7-18); CALCIUM 8.6 mg/dL (8.5-10.1); CREATININE 0.5 mg/dL (0.55-1.3); MAGNESIUM 2.4 mg/dL (1.8-2.4); PHOSPHOROUS 4.2 mg/dL (2.5-4.9); POTASSIUM 5.2 mmol/L (3.5-5.1); TOT PROT 5.2 g/dl (6.4-8.2)
[2019-06-06] MEDS: POTASSIUM CHLORIDE TABS 20 MEQ TABLET.ER (FP) PO SCH (09:04)
[2019-06-06] MEDS: AMINO ACIDS/PROTEIN HYDROLYS 30 ML LIQUID.PKT PO SCH (09:04)
[2019-06-06] MEDS: BACLOFEN 10 MG TABLET (FP) PO PRN (09:04)
[2019-06-06] MEDS: ENOXAPARIN NA (PORCINE) 40 MG/0.4 ML DISP.SYRIN SQ SCH (09:04)
[2019-06-06] MEDS: METHYL SALICYLATE/MENTHOL OINT 30 GM TUBE TP SCH (09:08)
[2019-06-06] MEDS: VENLAFAXINE HCL 37.5 MG E.R. CAPSULE (FP) PO SCH (09:11)
--- NOTE | 2019-06-06 10:30 | PN ---
Progress Note (short form) - Note Progress Note: Hospitalist Medicine States that she feels "fine." Called [facility] for additional hx, was there recently on 06/01/19 for vomiting. Has long hx of schizophrenia, however was not dc on any psych meds, and pt is noncompliant. Refused to talk to SW/ SHARA "I don't know what to tell them" Vitals 06/06/19 05:25 Temperature 97.5 F L Pulse Rate 67 Respiratory 18 Rate Blood Pressure 116/75 Physical Exam refused this AM Laboratory Tests 06/05/19 06/06/19 06/06/19 15:00 07:25 07:25 WBC 8.4 Hgb 10.5 L Hct 31.9 L Plt Count 470 H Sodium 136 Potassium 5.2 H Chloride 102 Carbon Dioxide 28 BUN 37.9 H Creatinine 0.5 L Random Glucose 103 AST 12 L ALT 10 L Alkaline Phosphatase 134 H Total Protein 5.2 L Albumin 2.4 L Vitamin B12 294 TSH 2.51 Imaging 06/01: Lumbar spine XR: since prior study, pt is rotated to the left. prominent heart, sclerotic knob, prominent zeeshan but clear lung caldwell. may be hiatal hernia. 06/01: CXR: scoliosis with convexity to the right, clear lungs, sclerotic, normal zeeshan and enlarged heart. an acute chest process is not seen. 06/02: Lumbar spine MRI: grade 2 spondylolithesis of S1 over S2 sequela most probably to an old injury. reevaluation when possible with MRI or CT scan of the sacrum with reformatted images recommended. no suspicious underlying pathologic bone marrow replacement or prevertebral soft tissue masses or hematoma suspected at this study. no evidence of midline or foraminal dissc herniation. no evidence of spinal stenosis. distended bladder 06/05: CT lumbar spine: acute vs. subacute vertical fx in sacral alae bilaterally. horizontal sacral fx S1-S2- chronic. resultant mild narrowing of the central sacral canal is noted Assessment/Plan 73F w/ pmh of anorexia, insomnia, who presented to [facility] ED w/ complaint of worsening lower back pain a/w BLE spasms and pain x 1week. Admitted for frailty , and intractable pain impeding ambulation. #Lower back pain a/w BLE pain likely 2/2 acute/subacute fx -XR spine without acute changes -CT, MRI L-spine noted as above -pending pain mgmt eval -per neurosx, will optimize for possible sx on Tuesday. f/u ECHO, a1c, lipid profile, etc. -on baclofen, tylenol (scheduled), motrin, bengay for pain control -started on effexor for neuropathic pain -started on calcium, vit D as likely osteoporosis -neurosx: Dr. Tolentino -pain mgmt: Dr. Reich #?hx schizophrenia -seen by psych -d/w [facility], pt has long hx schizophrenia. was not d/c on meds likely d/t poor f/u. -no record of meds at pt's pharmacy -Psych: Dr. Madrigal #severe protein malnutrition, h/o anorexia -dietary consult: recommend ensure enlive, prosource -may benefit from eating disorders facility upon d/c #normocytic anemia, stable -will give venoferx1 -c/t monitor #isolated elevated ALP -may be 2/2 bone destruction, with fx history -f/u GGT to r/o alt etiology -c/t monitor, no acute intervention needed -started on vit D, calcium #F/E/N not requiring IVF at this time continue to follow lytes; monitor for re-feeding syndrome. reg diet, with ensure supplementation #PPX DVT: lovenox #Dispo monitoring on med-surg per neurosx, will medically optimize for possible sx on Tuesday official recs to follow will need aid w/ disposition, as from correction . will likely need SNF <Juani Soto - Last Filed: 06/06/19 14:17> - Note Progress Note: Spoke with Dr. Tolentino; will likely plan for surgical correction given that the distribution of pressure on the spine when weight bearing. She has no other issues and is doing well with pain controlled but still too painful for her to walk or get out of bed. Resident spoke with ER provider at [facility] who informed them they were recently seen in the ER and discharged off on any psychiatric medications per the med list with apparent rationale that this was secondary to the patient's homeless status. Placement would obviously be an issue as she will likely require rehab. Obtaining preoperative evaluation; no cardiac symptoms and denies home medications but given the underlying issue with schizophrenia contributing to suboptinal historical status will go ahead and obtain echo, etc. to ensure her safety. Started on vitamin d/Ca as well as IV Fe. Repeating K as hyperkalemic and checking GGT (alk phos elevation with normal other LFTs could indicate bone involvement from fx) VS, labs, imaging reviewed NAD AAO resting in bed HR wnl, s1/2+ NT ND +BS CN2-12 wnl, no fnd Normal mood, appropriate behavor No myelopathic symptoms. A/P: agree with problem list per resident note; assessment and plan to follow. <Florin Johns - Last Filed: 06/07/19 12:07>
[2019-06-06] MEDS ORDERED: IRON SUCROSE INJECTION 300 MG in SODIUM CHLORIDE 235 ML IVPB ONE (12:00)
[2019-06-06] MEDS: CALCIUM 500MG/VIT-D 200 UNITS COMBO TABLET (FP) PO SCH (12:07)
[2019-06-06 14:56] LABS: CHOLESTEROL 168 mg/dL (50-200); HDL CHOLESTEROL 41 mg/dL (40-60); LDL CHOLESTEROL (ONLY SJRH) 103 mg/dL (5-100); TRIGLYCERIDES 96 mg/dL (0-150)
[2019-06-07] MEDS: ACETAMINOPHEN 500 MG TABLET (FP) PO SCH ×3 (06:02→22:04)
[2019-06-07] MEDS: AMINO ACIDS/PROTEIN HYDROLYS 30 ML LIQUID.PKT PO SCH (08:01)
[2019-06-07 08:38] LABS: BASO % 0.4 % (0-2.0); EOS % 0.7 % (0-4.5); HEMATOCRIT 32.2 % (32.4-45.2); HEMOGLOBIN 10.6 GM/dL (10.7-15.3); LYMPH % 13.2 % (8-40); MCH 30.2 pg (25.7-33.7); MEAN CELL VOLUME 91.6 fl (80-96); MEAN PLT VOLUME 7.9 fl (7.5-11.1); MONO % 10.2 % (3.8-10.2); NEUT % 75.5 % (42.8-82.8); PLATELET COUNT 471 K/MM3 (134-434); RBC 3.52 M/mm3 (3.60-5.2); RDW 16.1 % (11.6-15.6); WHITE BLOOD COUNT 11.7 K/mm3 (4.0-10.0)
[2019-06-07] MEDS: VENLAFAXINE HCL 37.5 MG E.R. CAPSULE (FP) PO SCH ×2 (09:05→09:09)
[2019-06-07] MEDS: POTASSIUM CHLORIDE TABS 20 MEQ TABLET.ER (FP) PO SCH ×2 (09:05→09:09)
[2019-06-07] MEDS: CALCIUM 500MG/VIT-D 200 UNITS COMBO TABLET (FP) PO SCH ×2 (09:05→09:09)
[2019-06-07] MEDS: METHYL SALICYLATE/MENTHOL OINT 30 GM TUBE TP SCH (09:06)
[2019-06-07] MEDS: ENOXAPARIN NA (PORCINE) 40 MG/0.4 ML DISP.SYRIN SQ SCH ×2 (09:06→09:07)
[2019-06-07 09:10] LABS: BLOOD UREA NITROGEN 28.6 mg/dL (7-18); CALCIUM 8.9 mg/dL (8.5-10.1); CREATININE 0.4 mg/dL (0.55-1.3); MAGNESIUM 2.2 mg/dL (1.8-2.4); PHOSPHOROUS 4.4 mg/dL (2.5-4.9)
[2019-06-07 09:46] LABS: ANISOCYTOSIS 0; MACROCYTOSIS 0; PLATELET ESTIMATE NORMAL
[2019-06-07] MEDS ORDERED: ONDANSETRON 4 MG/2 ML VIAL IVPUSH ONE ×2 (11:53→21:40)
--- NOTE | 2019-06-07 11:54 | PN ---
Addendum entered and electronically signed by Juani Soto, RESIDENT 06/07/19 16 :15: cleared by psych and cardio for sx NPO after MN T+S, coags Original Note: Progress Note (short form) - Note Progress Note: Hospitalist Medicine With nausea this AM and 1 episode of NBNB emesis. Denies other sx; "I don't want to talk." For possible sx tomorrow per neurosx. Will need psych to determine competency given hx schizophrenia Vitals 06/07/19 10:00 Temperature 98.0 F Pulse Rate 76 Respiratory 18 Rate Blood Pressure 124/76 Physical Exam refused this AM Laboratory Tests 06/05/19 06/06/19 06/06/19 15:00 07:50 13:55 WBC Hgb Hct Plt Count Sodium Potassium Chloride Carbon Dioxide BUN Creatinine Est GFR (CKD-EPI)AfAm Est GFR (CKD-EPI)NonAf RPR Titer Nonreactive Hep C Ab Diagnostic Pending HIV 1&2 Ag/Ab, 4th Gen Pending 06/07/19 06/07/19 07:50 07:50 WBC 11.7 H Hgb 10.6 L Hct 32.2 L Plt Count 471 H Sodium 132 L Potassium 5.0 Chloride 96 L Carbon Dioxide 31 BUN 28.6 H Creatinine 0.4 L Est GFR (CKD-EPI)AfAm 120.60 Est GFR (CKD-EPI)NonAf 104.06 RPR Titer Hep C Ab Diagnostic HIV 1&2 Ag/Ab, 4th Gen Imaging 06/01: Lumbar spine XR: since prior study, pt is rotated to the left. prominent heart, sclerotic knob, prominent zeeshan but clear lung caldwell. may be hiatal hernia. 06/01: CXR: scoliosis with convexity to the right, clear lungs, sclerotic, normal zeeshan and enlarged heart. an acute chest process is not seen. 06/02: Lumbar spine MRI: grade 2 spondylolithesis of S1 over S2 sequela most probably to an old injury. reevaluation when possible with MRI or CT scan of the sacrum with reformatted images recommended. no suspicious underlying pathologic bone marrow replacement or prevertebral soft tissue masses or hematoma suspected at this study. no evidence of midline or foraminal dissc herniation. no evidence of spinal stenosis. distended bladder 06/05: CT lumbar spine: acute vs. subacute vertical fx in sacral alae bilaterally. horizontal sacral fx S1-S2- chronic. resultant mild narrowing of the central sacral canal is noted Assessment/Plan 73F w/ pmh of anorexia, insomnia, who presented to [facility] ED w/ complaint of worsening lower back pain a/w BLE spasms and pain x 1week. Admitted for frailty , and intractable pain impeding ambulation. #Lower back pain a/w BLE pain likely 2/2 acute/subacute fx -XR spine without acute changes -CT, MRI L-spine noted as above -pending pain mgmt eval -per neurosx, will optimize for possible sx on Tuesday. f/u ECHO- done -on baclofen, tylenol (scheduled), motrin, bengay for pain control -on effexor for neuropathic pain -on calcium, vit D as likely osteoporosis -neurosx: Dr. Tolentino -pain mgmt: Dr. Reich #?hx schizophrenia -seen by psych; will need to determine competency -d/w [facility], pt has long hx schizophrenia. was not d/c on meds likely d/t poor f/u. -no record of meds at pt's pharmacy -Psych: Dr. Madrigal #Dark emesis -f/u FOBT -f/u CTAP -H/H currently stable -no sign active bleeding #severe protein malnutrition, h/o anorexia -dietary consult: recommend ensure enlive, prosource -may benefit from eating disorders facility upon d/c #normocytic anemia, stable -will give venoferx1 -c/t monitor #isolated elevated ALP -may be 2/2 bone destruction, with fx history -GGT WNL -c/t monitor, no acute intervention needed -started on vit D, calcium #hyponatremia -appears dry, possibly hypovolemic -will c/t monitor level; pt refusing tx, fluids, etc. #F/E/N not requiring IVF at this time continue to follow lytes; monitor for re-feeding syndrome. reg diet, with ensure supplementation #PPX DVT: lovenox #Dispo monitoring on med-surg per neurosx, will medically optimize for possible sx on Tuesday however will need psych clearance for competency prior will need aid w/ [facility], [facility] . will likely need SNF on d/c <Juani Soto - Last Filed: 06/07/19 13:39> - Note Progress Note: Spoke with Dr. Tolentino; will likely plan for surgical correction given that the distribution of pressure on the spine when weight bearing. She has no other issues and is doing well with pain controlled but still too painful for her to walk or get out of bed. Resident spoke with ER provider at [facility] who informed them they were recently seen in the ER and discharged off on any psychiatric medications per the med list with apparent rationale that this was secondary to the patient's homeless status. Placement would obviously be an issue as she will likely require rehab. Obtaining preoperative evaluation; no cardiac symptoms and denies home medications but given the underlying issue with schizophrenia contributing to suboptinal historical status will go ahead and obtain echo, etc. to ensure her safety. Started on vitamin d/Ca as well as IV Fe. Repeating K as hyperkalemic and checking GGT (alk phos elevation with normal other LFTs could indicate bone involvement from fx) *Some vague abdominal pain this morning with no noted contraindications to proceeding with surgery. Will defer to neurosurgery/CV/Anesthesia but if she can consent which is up to psych then she may get the procedure. She has vague abodminal pain wth some vomiting. No siigns bleeding or hemodynamic instabiliity. Check CT scan and FU this PM. 10 sys ROS done and negative. VS, labs, imaging reviewed NAD AAO resting in bed HR wnl, s1/2+ NT ND +BS CN2-12 wnl, no fnd Normal mood, appropriate behavor No myelopathic symptoms. A/P: I agree with problem list per resident note; assessment and plan to follow. Followup final CV preop recs FU echo Subacute to acute sacral fx, piotentiial operative clearance Schizophrenia without active psychosis, questionable competency Severe protein calorie malnutrition Severe deceonditioning Likely HTN hx Social issues Osteoporosis Full code <Florin Johns - Last Filed: 06/08/19 05:35>
--- NOTE | 2019-06-07 12:30 | ECHO ---
Name: MARY REICH Exam:Adult Echocardiogram Study Date: 06/07/2019 10:40 AM Age: 73 yrs Reason For Study: LV Function Height: 64 in Weight: 83 lb BSA: 1.3 m2 MMode/2D Measurements & Calculations IVSd: 1.1 cm Ao root diam: 2.9 cm LVIDd: 3.0 cm LA dimension: 2.0 cm LVIDs: 1.9 cm LVPWd: 0.84 cm EDV(Teich): 35.5 ml LVOT diam: 2.0 cm ESV(Teich): 11.1 ml Doppler Measurements & Calculations MV E max delroy: 89.7 cm/sec Ao V2 max: 158.8 cm/sec MV A max delroy: 139.7 cm/sec Ao max P.1 mmHg MV E/A: 0.64 MV dec time: 0.14 sec AMINATA(V,D): 3.0 cm2 LV V1 max P.2 mmHg TR max delroy: 192.7 cm/sec LV V1 max: 151.3 cm/sec TR max P.0 mmHg PA V2 max: 138.5 cm/sec Med Peak E' Delroy: 4.9 cm/sec PA max P.7 mmHg Med E/e': 18.3 Lat Peak E' Delroy: 8.6 cm/sec Lat E/e': 10.4 PI Vmax: 119.4 cm/sec Procedure A complete two-dimensional transthoracic echocardiogram was performed (2D, M-mode, Doppler and color flow Doppler). Left Ventricle There is moderate concentric left ventricular hypertrophy. The left ventricular ejection fraction is normal. Ejection Fraction = 65-70%. The left ventricular wall motion is normal. Right Ventricle The right ventricle is normal in size and function. Atria Normal left and right atrial size and function. Mitral Valve There is no mitral regurgitation noted. Tricuspid Valve There is trace tricuspid regurgitation. There was insufficient TR detected to calculate RV systolic p ressure. Aortic Valve The aortic valve is trileaflet. No hemodynamically significant valvular aortic stenosis. No aortic regurgitation is present. Pulmonic Valve There is no pulmonic valvular regurgitation. Great Vessels The aortic root is normal size. Pericardium/Pleura There is no pericardial effusion. Interpretation Summary There is moderate concentric left ventricular hypertrophy. The left ventricular ejection fraction is normal. The right ventricle is normal in size and function. There is trace tricuspid regurgitation. MD Kyaw Curiel 06/07/2019 12:30 PM
[2019-06-07 13:42] LABS: INR 0.97 (0.83-1.09); PROTHROMBIN TIME (PATIENT) 11.5 SEC (9.7-13.0)
--- NOTE | 2019-06-07 15:00 | CON.CARD ---
Consult Consult Specialty:: Cardiology Reason for Consultation:: Pre-Op eval - History of Present Illness Chief Complaint: Back pain History of Present Illness: This is a 73 year old female with a PMH of anorexia. She presents with lower back pain and is planning for back surgery. She has no cardiac symptoms currently and no past cardiac history. An echocardiogram performed on 06/07/19 showed normal LV function with an EF of 65 - 70% with moderate concentric LVH, normal mitral valve, trace tricuspid regurgitation, and normal aortic valve. EKG 05/2019 shows sinus bradycardia at 54 BPM with normal intervals, normal axis , RSR' in V2, and NSSTTW changes. - Alcohol/Substance Use Hx Alcohol Use: No - Smoking History Smoking history: Never smoked Have you smoked in the past 12 months: No - Social History Usual Living Arrangement: With Child Home Medications - Allergies Allergies/Adverse Reactions: Allergies Allergy/AdvReac Type Severity Reaction Status Date / Time No Known Allergies Allergy Verified 06/01/19 17:06 - Home Medications Home Medications: Ambulatory Orders Acetaminophen [Tylenol .Extra-Strength -] 1,000 mg PO TID 30 Days tablet Ibuprofen [Motrin -] 600 mg PO Q6H PRN #30 tablet 06/06/19 Methyl Salicylate/Menthol Oint [Analgesic Jud -] 1 applic TP DAILY 30 Days applic 06/06/19 Vital Signs: Vital Signs Temperature 98.0 F 06/07/19 10:00 Pulse Rate 76 06/07/19 10:00 Respiratory Rate 18 06/07/19 10:00 Blood Pressure 124/76 06/07/19 10:00 O2 Sat by Pulse Oximetry (%) 95 06/07/19 10:00 Constitutional: Yes: Thin Eyes: Yes: WNL HENT: Yes: WNL Neck: Yes: WNL Respiratory: Yes: CTA Bilaterally Gastrointestinal: Yes: Soft Cardiovascular: Yes: Regular Rate and Rhythm Heart Sounds: Yes: S1, S2 Edema: No Neurological: Yes: Alert, Oriented - Other Data Labs, Other Data: CBC, BMP 06/07/19 07:50 06/07/19 07:50 INR, PTT INR 0.97 (0.83-1.09) 06/07/19 12:38 Assessment/Plan 73 year old female with a PMH of anorexia. She presents with lower back pain and is planning for back surgery. She has no cardiac symptoms currently and no past cardiac history. An echocardiogram performed on 06/07/19 showed normal LV function with an EF of 65 - 70% with moderate concentric LVH, normal mitral valve, trace tricuspid regurgitation, and normal aortic valve. EKG 05/2019 shows sinus bradycardia at 54 BPM with normal intervals, normal axis , RSR' in V2, and NSSTTW changes. PreOp Evaluation LVH on an echocardiogram may represent past HTN or hypertrophic cardiomyopathy. She should be followed by cardiology as an outpatient and recieved an echocardiogram every 1 to 2 years. However, it dose not represent a contraindication to surgery. There are no cardiac contraindications to surgery.
--- NOTE | 2019-06-07 15:21 | PN ---
Progress Note (short form) - Note Progress Note: Patient has the Mental capacity to make decisions at this time.
[2019-06-07] MEDS: BACLOFEN 10 MG TABLET (FP) PO PRN (18:08)
--- NOTE | 2019-06-07 20:07 | CONSULT ---
Consult - text type - Consultation Consultation Note: NEUROSURGERY CONSULTATION Suellen Woods is a 73 year old female who carries diagnoses of anorexia and insomnia and is currently residing at a [facility] who presented to the ED with a 2 week history of severe mechanical low back pain. She denies any antecedent trauma/falls which may have contributed to her recent deterioraton. The patient has started ambulating with a cane but now cannot walk. Moving her in bed or transferring her passively is exceptionally painful as is sitting and standing. The patient was imaged with MRI and CT which demonstrate a chronic S12 spondylolisthesis which apparently represents healing of an old fracture through the S12 interspace. Note is made of an extremely distended bladder and a new, bilateral subacute verticle fractures through the sacral ala. Although surgical stabilization would be associated with an elevated risk of perioperative morbidity, the natural history of these unstable fractures is likely to be poor. A focal stabilization with L4-iliac reconstruction may represent a logical next step in her care. Psychiatry and Cardiology consultations are greatly appreciated. I plan to discuss the risks, benefits and alternatives to spinopelvic stabilization with patient and any available family members. If bracing affords her relief or she is medically unfit to proceed, we will consider conservative options. - Staples catheter (with attention to avoid rapid decompression of the entire bladder) - GI/DVT Prophylaxis - Medical Optimization - Will speak with patient tomorrow and determine the optimum time to proceed with surgery if this is determined to be the best course of treatment for her.
[2019-06-08] MEDS: ACETAMINOPHEN 500 MG TABLET (FP) PO SCH ×3 (06:24→21:18)
[2019-06-08] MEDS: AMINO ACIDS/PROTEIN HYDROLYS 30 ML LIQUID.PKT PO SCH (08:16)
[2019-06-08] MEDS ORDERED: PT OWN MED DRAWER 7, Y5N ONE ×2 (08:49→09:59)
[2019-06-08 09:13] LABS: BASO % 0.5 % (0-2.0); EOS % 0.4 % (0-4.5); HEMATOCRIT 28.8 % (32.4-45.2); HEMOGLOBIN 9.6 GM/dL (10.7-15.3); LYMPH % 19.6 % (8-40); MCH 30.3 pg (25.7-33.7); MCHC 33.3 g/dl (32.0-36.0); MEAN CELL VOLUME 91.1 fl (80-96); MONO % 14.5 % (3.8-10.2); PLATELET COUNT 552 K/MM3 (134-434); RBC 3.16 M/mm3 (3.60-5.2); RDW 16.8 % (11.6-15.6); WHITE BLOOD COUNT 9.3 K/mm3 (4.0-10.0)
[2019-06-08 09:38] LABS: BLOOD UREA NITROGEN 33.2 mg/dL (7-18); CALCIUM 8.4 mg/dL (8.5-10.1); CREATININE 0.6 mg/dL (0.55-1.3); MAGNESIUM 2.4 mg/dL (1.8-2.4); PHOSPHOROUS 4.2 mg/dL (2.5-4.9); POTASSIUM 4.7 mmol/L (3.5-5.1)
[2019-06-08] MEDS: POTASSIUM CHLORIDE TABS 20 MEQ TABLET.ER (FP) PO SCH (09:56)
[2019-06-08] MEDS: CALCIUM 500MG/VIT-D 200 UNITS COMBO TABLET (FP) PO SCH (09:58)
[2019-06-08] MEDS: VENLAFAXINE HCL 37.5 MG E.R. CAPSULE (FP) PO SCH (10:04)
[2019-06-08] MEDS: METHYL SALICYLATE/MENTHOL OINT 30 GM TUBE TP SCH (10:06)
[2019-06-08] MEDS: ENOXAPARIN NA (PORCINE) 40 MG/0.4 ML DISP.SYRIN SQ SCH (10:47)
[2019-06-08 11:19] LABS: ANISOCYTOSIS 1+; PLATELET ESTIMATE INCREASED
--- NOTE | 2019-06-08 15:28 | PN ---
Progress Note (short form) - Note Progress Note: Hospitalist Medicine With nausea. Currently refusing sx on Tuesday. Will need placement Vitals 06/08/19 09:00 Temperature 97.7 F Pulse Rate 78 Respiratory 19 Rate Blood Pressure 105/67 Physical Exam general: resting in bed, cachectic HEENT: NCAT neck: supple cardio: S1, S2 rrr. no r/m/g pulm: cta b/l abdomen: nontender,nondistended MSK: unable to complete active, passive ROM; hip flexion, extension . too painful neuro: solution professional 2-12 grossly intact Laboratory Tests 06/08/19 06/08/19 08:33 08:33 WBC 9.3 Hgb 9.6 L Hct 28.8 L Plt Count 552 H Sodium 134 L Potassium 4.7 Chloride 96 L Carbon Dioxide 33 H Anion Gap 4 L BUN 33.2 H Creatinine 0.6 Calcium 8.4 L Phosphorus 4.2 Magnesium 2.4 Imaging 06/01: Lumbar spine XR: since prior study, pt is rotated to the left. prominent heart, sclerotic knob, prominent zeeshan but clear lung caldwell. may be hiatal hernia. 06/01: CXR: scoliosis with convexity to the right, clear lungs, sclerotic, normal zeeshan and enlarged heart. an acute chest process is not seen. 06/02: Lumbar spine MRI: grade 2 spondylolithesis of S1 over S2 sequela most probably to an old injury. reevaluation when possible with MRI or CT scan of the sacrum with reformatted images recommended. no suspicious underlying pathologic bone marrow replacement or prevertebral soft tissue masses or hematoma suspected at this study. no evidence of midline or foraminal dissc herniation. no evidence of spinal stenosis. distended bladder 06/05: CT lumbar spine: acute vs. subacute vertical fx in sacral alae bilaterally. horizontal sacral fx S1-S2- chronic. resultant mild narrowing of the central sacral canal is noted 06/07/19: CTAP: small b/l pleural effusions, moderate nonspecific fluid-filled gastric distension. moderate to large hiatal hernia. possible endometrial thickening. correlation with sonography is suggested. moderate colonic fecal retention. mild retention of bladder. acute/early acute vertical fractures seen of sacral alae bilaterally. transverse fracture of s2-s3 junction with resultant anterior subluxation of approx 40%. Assessment/Plan 73F w/ pmh of anorexia, insomnia, who presented to [facility] ED w/ complaint of worsening lower back pain a/w BLE spasms and pain x 1week. Admitted for frailty , and intractable pain impeding ambulation. #Lower back pain a/w BLE pain likely 2/2 acute/subacute fx -XR spine without acute changes -CT, MRI L-spine noted as above -pending pain mgmt eval -per neurosx, pt now refusing sx on Tuesday -on baclofen, tylenol (scheduled), bengay for pain control -on effexor for neuropathic pain -on calcium, vit D as likely osteoporosis -neurosx: Dr. Tolentino -pain mgmt: Dr. Reich #?hx schizophrenia -seen by psych; will need to determine competency -d/w [facility], pt has long hx schizophrenia. was not d/c on meds likely d/t poor f/u. -no record of meds at pt's pharmacy -Psych: Dr. Madrigal #Dark emesis -f/u FOBT -CTAP w / evidence of moderate to large hiatal hernia -H/H currently stable -will start on protonix to see if improves -no sign active bleeding #fecal retention -will start on senna, miralax and colace -monitor for BM #distended bladder -insert corral, do not drain > 1L or risk hem cystitis #severe protein malnutrition, h/o anorexia -dietary consult: recommend ensure enlive, prosource -may benefit from eating disorders facility upon d/c #normocytic anemia, stable -will give venoferx1 -c/t monitor #isolated elevated ALP -may be 2/2 bone destruction, with fx history -GGT WNL -c/t monitor, no acute intervention needed -started on vit D, calcium #F/E/N not requiring IVF at this time continue to follow lytes; monitor for re-feeding syndrome. reg diet, with ensure supplementation #PPX DVT: lovenox #Dispo monitoring on med-surg no longer wanting surgery will need aid w/ disposition, as from correction . will likely need SNF on d/c
[2019-06-08] MEDS: DOCUSATE SODIUM 100 MG CAPSULE (FP) PO SCH (16:26)
[2019-06-08] MEDS: PANTOPRAZOLE SODIUM 40 MG VIAL IVPUSH SCH (16:26)
[2019-06-08] MEDS: POLYETHYLENE GLYCOL 3350 119 GM BTL PO SCH (16:29)
--- NOTE | 2019-06-08 17:53 | PN ---
Teaching Attending Note Name of Resident: Juani Soto ATTENDING PHYSICIAN STATEMENT I saw and evaluated the patient. I reviewed the resident's note and discussed the case with the resident. I agree with the resident's findings and plan as documented. 73F w/ h/o anorexia, insomnia, mood disorder, admitted for acute on chronic LBP , seen by neurosurgery patient awaiting possible surgery for Tuesday, today feels tired, asking for milk, juice, Ensure. As per resident patient changing her mind for neurosurgical intervention. VS, labs, imaging reviewed NAD AAO resting in bed, speaking in full sentences, frail appearing HR wnl, s1/2+ NT ND +BS CN2-12 wnl, no fnd Normal mood, appropriate behavior Vital Signs - 24 hr 06/07/19 06/07/19 06/08/19 19:47 21:00 05:11 Temperature 98.0 F 97.9 F Pulse Rate 80 84 Respiratory 20 20 20 Rate Blood Pressure 120/70 100/62 O2 Sat by Pulse 95 Oximetry (%) 06/08/19 09:00 Temperature 97.7 F Pulse Rate 78 Respiratory 19 Rate Blood Pressure 105/67 O2 Sat by Pulse 98 Oximetry (%) Laboratory Results - last 24 hr 06/06/19 06/08/19 06/08/19 07:50 08:33 08:33 WBC 9.3 RBC 3.16 L Hgb 9.6 L Hct 28.8 L MCV 91.1 MCH 30.3 MCHC 33.3 RDW 16.8 H Plt Count 552 H MPV 7.0 L D Absolute Neuts (auto) 6.0 Neutrophils % 65.0 Neutrophils % (Manual) 70.3 Band Neutrophils % 0.0 Lymphocytes % 19.6 D Lymphocytes % (Manual) 16.8 D Monocytes % 14.5 H Monocytes % (Manual) 6 Eosinophils % 0.4 Eosinophils % (Manual) 2.0 Basophils % 0.5 Basophils % (Manual) 1.0 D Myelocytes % (Man) 0 Promyelocytes % (Man) 0 Blast Cells % (Manual) 0 Nucleated RBC % 0 Metamyelocytes 1 D Platelet Estimate Increased Polychromasia 1+ Anisocytosis 1+ Sodium 134 L Potassium 4.7 Chloride 96 L Carbon Dioxide 33 H Anion Gap 4 L BUN 33.2 H Creatinine 0.6 Est GFR (CKD-EPI)AfAm 105.54 Est GFR (CKD-EPI)NonAf 91.06 Random Glucose 101 Calcium 8.4 L Phosphorus 4.2 Magnesium 2.4 HIV 1&2 Ag/Ab, 4th Gen Non reactive Current Medications Generic Name Dose Route Start Last Admin Trade Name Freq PRN Reason Stop Dose Admin Acetaminophen 1,000 mg 06/05/19 13:45 06/08/19 14:48 Tylenol - PO Not Given TID IVAN Amino Acids 30 ml 06/04/19 08:00 06/08/19 08:16 Prosource No Carb Liquid Pkt PO Not Given DAILY@0800 IVAN Baclofen 10 mg 06/03/19 13:24 06/07/19 18:08 Lioresal - PO 10 mg TID PRN Administration PAIN Calcium Carbonate/Cholecalciferol 2 tab 06/06/19 11:45 06/08/19 09:58 Os-Manuel 500+D - PO 2 tab DAILY IVAN Administration Docusate Sodium 100 mg 06/08/19 15:30 06/08/19 16:26 Colace - PO 100 mg DAILY IVAN Administration Enoxaparin Sodium 40 mg 06/02/19 10:00 06/08/19 10:47 Lovenox - SQ Not Given DAILY IVAN Methyl Salicylate 1 applic 06/04/19 11:30 06/08/19 10:06 Magdaleno-Connolly - TP 1 applic DAILY IVAN Administration Pantoprazole Sodium 40 mg 06/08/19 15:30 06/08/19 16:26 Protonix Iv IVPUSH 40 mg DAILY IVAN Administration Polyethylene Glycol 17 gm 06/08/19 15:30 06/08/19 16:29 Miralax (For Daily Use) - PO 17 gm DAILY IVAN Administration Potassium Chloride 20 meq 06/02/19 20:30 06/08/19 09:56 K-Dur - PO 20 meq DAILY IVAN Administration Senna 1 tab 06/08/19 22:00 Senna - PO HS IVAN Venlafaxine HCl 37.5 mg 06/05/19 13:45 06/08/19 10:04 Effexor Xr - PO 37.5 mg DAILY IVAN Administration A/P: I agree with problem list per resident note; assessment and plan to follow. Subacute to acute sacral fractures As per Cardiology, echo findings do not warrant cardiac contraindication to surgery. neurosurgery will explore conservative v.s. surgical treatment, they will need to hold a conversation with patient to explain the risks and benefits and make a decision from there. Follow up with pain management for pain recs Neurosurgery on board History of dark emesis follow up FOBT, trend CBC, cont. PPI, watch closely for BM Elevation of ALP likely due to bone fractures no e/o liver or biliary pathology Schizophrenia without active psychosis, cleared as competent as per psychiatry Severe protein calorie malnutrition with de-conditioning, supplement calories with ensure, yogurt, milk whichever patient prefers to increase PO intake, follow nutrition recommendations encourage PO intake Social issues, social work referral Osteoporosis supplement start empiric Os-Manuel BID for bone health, check Vit D levels supplement as needed Full code
[2019-06-08] MEDS: SENNOSIDES 8.6MG TABLET (FP) PO SCH (21:18)
[2019-06-09] MEDS: BACLOFEN 10 MG TABLET (FP) PO PRN (01:08)
[2019-06-09] MEDS: IBUPROFEN 400 MG TABLET (FP) PO PRN (01:08)
[2019-06-09] MEDS: ACETAMINOPHEN 500 MG TABLET (FP) PO SCH ×4 (05:05→21:18)
[2019-06-09 07:17] LABS: HEMATOCRIT 28.4 % (32.4-45.2); HEMOGLOBIN 9.4 GM/dL (10.7-15.3); MCH 30.8 pg (25.7-33.7); MCHC 32.9 g/dl (32.0-36.0); MEAN CELL VOLUME 93.5 fl (80-96); PLATELET COUNT 585 K/MM3 (134-434); RBC 3.04 M/mm3 (3.60-5.2); RDW 16.4 % (11.6-15.6); WHITE BLOOD COUNT 9.9 K/mm3 (4.0-10.0)
[2019-06-09 07:18] LABS: BASO % 0.6 % (0-2.0); EOS % 0.5 % (0-4.5); LYMPH % 24.4 % (8-40); MEAN PLT VOLUME 7.2 fl (7.5-11.1); MONO % 12.5 % (3.8-10.2)
[2019-06-09 07:40] LABS: BLOOD UREA NITROGEN 37.9 mg/dL (7-18); CALCIUM 8.6 mg/dL (8.5-10.1); CREATININE 0.6 mg/dL (0.55-1.3); MAGNESIUM 2.4 mg/dL (1.8-2.4); PHOSPHOROUS 3.6 mg/dL (2.5-4.9); POTASSIUM 4.6 mmol/L (3.5-5.1)
[2019-06-09] MEDS: POTASSIUM CHLORIDE TABS 20 MEQ TABLET.ER (FP) PO SCH (09:07)
[2019-06-09] MEDS: AMINO ACIDS/PROTEIN HYDROLYS 30 ML LIQUID.PKT PO SCH (09:08)
[2019-06-09] MEDS: VENLAFAXINE HCL 37.5 MG E.R. CAPSULE (FP) PO SCH (09:08)
[2019-06-09] MEDS: ENOXAPARIN NA (PORCINE) 40 MG/0.4 ML DISP.SYRIN SQ SCH (09:08)
[2019-06-09] MEDS: DOCUSATE SODIUM 100 MG CAPSULE (FP) PO SCH (09:08)
[2019-06-09] MEDS: METHYL SALICYLATE/MENTHOL OINT 30 GM TUBE TP SCH (09:08)
[2019-06-09] MEDS: CALCIUM 500MG/VIT-D 200 UNITS COMBO TABLET (FP) PO SCH (09:09)
[2019-06-09] MEDS: PANTOPRAZOLE SODIUM 40 MG VIAL IVPUSH SCH (09:09)
[2019-06-09] MEDS: POLYETHYLENE GLYCOL 3350 119 GM BTL PO SCH (09:15)
--- NOTE | 2019-06-09 12:50 | PN ---
Physical Exam: SUBJECTIVE: Patient seen and examined; again reviewed Dr. Madrigal's note which stated that the patient's prior facility indicates that she has a history of being manipulative during care. I spoke with the patient at length today. She has an odd association of her pain, admitting she can move her legs but then stating she felt like she couldn't. I am not sure if this represents a lack of insight but she is noted to have real reasons for pain with the acute fracutres. She tells me that she refused surgery with Dr. Tolentino "because he wanted to put screws into my back" but then goes on to tell me that she isn't quite sure what the procedure is and would like to talk to him more about it. I then informed her we would be able to reach out to his service, and she indicated some hesitation given the fact that it would involve hardware. I stated that she would then need to see pain management and work with PT if cleared for WB per nsgy and she indicates that she doesn't think that she would be able to walk. I told her that this would require placement in rehab. She indicated that me was not sure she would want to work with a rehab or subacute rehab due to the pain. I indicated to her that this could be addressed with pain management, and if still uncontrolled and subject to multiple expert medical opinions and psychiatric evaluation that she would be a candidate for NH placement. She indicated that she didn't want to do that, either. I asked her at that point to expound on her living situation, at which juncture she represented herself as homeless and occasionally staying at the [facility]. I indicated we would have to cntinue to coordinate with social work. 10 sys ROS done and negative aside from HPI OBJECTIVE: Vital Signs Period Temp Pulse Resp BP Sys/Ryan Pulse Ox Last 24 Hr 97.8 F-98.0 F 80-92 17-20 92-118/58-71 97-98 Laboratory Results - last 24 hr 06/09/19 06/09/19 06:48 06:48 WBC 9.9 RBC 3.04 L Hgb 9.4 L Hct 28.4 L MCV 93.5 MCH 30.8 MCHC 32.9 RDW 16.4 H Plt Count 585 H MPV 7.2 L Absolute Neuts (auto) 6.1 Neutrophils % 62.0 Lymphocytes % 24.4 D Monocytes % 12.5 H Eosinophils % 0.5 Basophils % 0.6 Nucleated RBC % 0 Sodium 133 L Potassium 4.6 Chloride 97 L Carbon Dioxide 29 Anion Gap 7 L BUN 37.9 H Creatinine 0.6 Est GFR (CKD-EPI)AfAm 105.54 Est GFR (CKD-EPI)NonAf 91.06 Random Glucose 100 Calcium 8.6 Phosphorus 3.6 Magnesium 2.4 Active Medications Generic Name Dose Route Start Last Admin Trade Name Freq PRN Reason Stop Dose Admin Acetaminophen 1,000 mg 06/05/19 13:45 06/09/19 05:05 Tylenol - PO 1,000 mg TID IVAN Administration Amino Acids 30 ml 06/04/19 08:00 06/09/19 09:08 Prosource No Carb Liquid Pkt PO 30 ml DAILY@0800 IVAN Administration Baclofen 10 mg 06/03/19 13:24 06/09/19 01:08 Lioresal - PO 10 mg TID PRN Administration PAIN Calcium Carbonate/Cholecalciferol 2 tab 06/06/19 11:45 06/09/19 09:09 Os-Manuel 500+D - PO 2 tab DAILY IVAN Administration Docusate Sodium 100 mg 06/08/19 15:30 06/09/19 09:08 Colace - PO 100 mg DAILY IVAN Administration Enoxaparin Sodium 40 mg 06/02/19 10:00 06/09/19 09:08 Lovenox - SQ 40 mg DAILY IVAN Administration Ibuprofen 400 mg 06/09/19 00:43 06/09/19 01:08 Motrin - PO 400 mg Q6H PRN Administration FEVER Methyl Salicylate 1 applic 06/04/19 11:30 06/09/19 09:08 Magdaleno-Connolly - TP 1 applic DAILY IVAN Administration Pantoprazole Sodium 40 mg 06/08/19 15:30 06/09/19 09:09 Protonix Iv IVPUSH 40 mg DAILY IVAN Administration Polyethylene Glycol 17 gm 06/08/19 15:30 06/09/19 09:15 Miralax (For Daily Use) - PO 17 gm DAILY IVAN Administration Potassium Chloride 20 meq 06/02/19 20:30 06/09/19 09:07 K-Dur - PO 20 meq DAILY IVAN Administration Senna 1 tab 06/08/19 22:00 06/08/19 21:18 Senna - PO Not Given HS IVAN Venlafaxine HCl 37.5 mg 06/05/19 13:45 06/09/19 09:08 Effexor Xr - PO 37.5 mg DAILY IVAN Administration ASSESSMENT/PLAN: Somewhat improved with Venlafaxine with psych issues; no other complaints. In terms of her anorexia/bulimia nervosa history she indicates that she has improved and has been eating regularly. We will monitor her electrolytes for any refeeding indication and continue to supplement with calcium/vitamin d. She now denies a history of schizophrenia. Continue to monitor for symptoms and discuss with psych/verify old records. She will be an issue with placement as I detailed above. She indicates her pain is ongoing and severe with transient weakness. We need to FU with pain managemnt recs and nsgy recs. She is hesitnt regarding procedure. Problems include: Followup final CV preop recs FU echo Subacute to acute sacral fx, piotentiial operative clearance Schizophrenia without active psychosis, questionable competency Severe protein calorie malnutrition Severe deceonditioning Likely HTN hx Social issues Osteoporosis Full Code Visit type - Emergency Visit Emergency Visit: No - New Patient This patient is new to me today: No - Critical Care Critical Care patient: No
[2019-06-09] MEDS: OXYBUTYNIN CHLORIDE 5 MG TABLET PO SCH (13:42)
[2019-06-09] MEDS: SENNOSIDES 8.6MG TABLET (FP) PO SCH (21:14)
--- NOTE | 2019-06-09 22:21 | PN ---
Progress Note (short form) - Note Progress Note: Patient seen and examined on June 08, 2019. I explained the risks, benefits and alternatives to Lumbar surgery in great detail. The patient verbalizes an understanding of the information provided and declines surgical intervention.
[2019-06-09] MEDS ORDERED: MELATONIN 5 MG TABLETS PO ONE (22:27)
[2019-06-10] MEDS: ACETAMINOPHEN 500 MG TABLET (FP) PO SCH ×4 (04:59→21:16)
[2019-06-10 07:30] LABS: BASO % 0.4 % (0-2.0); HEMATOCRIT 28.3 % (32.4-45.2); HEMOGLOBIN 9.2 GM/dL (10.7-15.3); LYMPH % 15.5 % (8-40); MCH 30.6 pg (25.7-33.7); MCHC 32.6 g/dl (32.0-36.0); MEAN PLT VOLUME 7.2 fl (7.5-11.1); MONO % 7.9 % (3.8-10.2); NEUT % 75.2 % (42.8-82.8); PLATELET COUNT 614 K/MM3 (134-434); RBC 3.01 M/mm3 (3.60-5.2); RDW 16.8 % (11.6-15.6); WHITE BLOOD COUNT 10.7 K/mm3 (4.0-10.0)
[2019-06-10 07:58] LABS: CALCIUM 8.7 mg/dL (8.5-10.1); CREATININE 0.4 mg/dL (0.55-1.3); MAGNESIUM 2.3 mg/dL (1.8-2.4); PHOSPHOROUS 3.2 mg/dL (2.5-4.9); POTASSIUM 4.5 mmol/L (3.5-5.1)
[2019-06-10] MEDS ORDERED: PT OWN MED DRAWER 7, Y5N ONE ×3 (09:19→23:19)
[2019-06-10] MEDS: AMINO ACIDS/PROTEIN HYDROLYS 30 ML LIQUID.PKT PO SCH (09:45)
[2019-06-10] MEDS: METHYL SALICYLATE/MENTHOL OINT 30 GM TUBE TP SCH (09:45)
[2019-06-10] MEDS: VENLAFAXINE HCL 37.5 MG E.R. CAPSULE (FP) PO SCH (09:46)
[2019-06-10] MEDS: DOCUSATE SODIUM 100 MG CAPSULE (FP) PO SCH (09:46)
[2019-06-10] MEDS: POTASSIUM CHLORIDE TABS 20 MEQ TABLET.ER (FP) PO SCH (09:46)
[2019-06-10] MEDS: OXYBUTYNIN CHLORIDE 5 MG TABLET PO SCH (09:46)
[2019-06-10] MEDS: PANTOPRAZOLE SODIUM 40 MG VIAL IVPUSH SCH (09:47)
[2019-06-10] MEDS: ENOXAPARIN NA (PORCINE) 40 MG/0.4 ML DISP.SYRIN SQ SCH (09:47)
[2019-06-10] MEDS: CALCIUM 500MG/VIT-D 200 UNITS COMBO TABLET (FP) PO SCH (09:47)
[2019-06-10] MEDS: POLYETHYLENE GLYCOL 3350 119 GM BTL PO SCH (09:54)
--- NOTE | 2019-06-10 13:32 | PN ---
Physical Exam: SUBJECTIVE: Patient seen and examined; does not want surgery. No new functional status limitations, etc. noted. In summation they are indicated as having ongoing issus with their pain that is rather nonspecific as I detailed at length in yesterday's note. They have no new issues noted. Started on clinamix per dietary and we will speak with transfer centers on Tuesday about geetting her to a potential accepting facility for adults with eating disorders. 10 SYS ROS DONE AND NEGATIVE ASIDE FROM HPI OBJECTIVE: Vital Signs Period Temp Pulse Resp BP Sys/Ryan Pulse Ox Last 24 Hr 98 F-98.2 F 73-84 16-18 96-117/58-73 97 GENERAL: The patient is awake, alert, and fully oriented, in no acute distress. HEAD: Normal with no signs of trauma. EYES: PERRL, extraocular movements intact, sclera anicteric, conjunctiva clear. No ptosis. ENT: Ears normal, nares patent, oropharynx clear without exudates, moist mucous membranes. NECK: Trachea midline, full range of motion, supple. LUNGS: Breath sounds equal, clear to auscultation bilaterally HEART: Regular rate and rhythm, S1, S2 without murmur, rub or gallop. ABDOMEN: Soft, nontender, nondistended, normoactive bowel sounds, no guarding, no rebound, no hepatosplenomegaly, no masses. EXTREMITIES: 2+ pulses, warm, well-perfused, no edema. NEUROLOGICAL: Cranial nerves II through XII grossly intact. No fnds, no new myelopathic symptoms PSYCH: Normal mood, normal affect. SKIN: Warm, dry, normal turgor, no rashes or lesions noted Laboratory Results - last 24 hr 06/06/19 06/09/19 06/10/19 13:55 13:50 07:00 WBC 10.7 H RBC 3.01 L Hgb 9.2 L Hct 28.3 L MCV 94.0 MCH 30.6 MCHC 32.6 RDW 16.8 H Plt Count 614 H MPV 7.2 L Absolute Neuts (auto) 8.0 Neutrophils % 75.2 D Lymphocytes % 15.5 D Monocytes % 7.9 Eosinophils % 1.0 D Basophils % 0.4 Nucleated RBC % 0 Sodium Potassium Plasma Potassium 6.1 H Chloride Carbon Dioxide Anion Gap BUN Creatinine Est GFR (CKD-EPI)AfAm Est GFR (CKD-EPI)NonAf Random Glucose Calcium Phosphorus Magnesium Stool Occult Blood Negative 06/10/19 07:00 WBC RBC Hgb Hct MCV MCH MCHC RDW Plt Count MPV Absolute Neuts (auto) Neutrophils % Lymphocytes % Monocytes % Eosinophils % Basophils % Nucleated RBC % Sodium 135 L Potassium 4.5 Plasma Potassium Chloride 100 Carbon Dioxide 31 Anion Gap 5 L BUN 34.0 H Creatinine 0.4 L Est GFR (CKD-EPI)AfAm 120.60 Est GFR (CKD-EPI)NonAf 104.06 Random Glucose 104 Calcium 8.7 Phosphorus 3.2 Magnesium 2.3 Stool Occult Blood Active Medications Generic Name Dose Route Start Last Admin Trade Name Freq PRN Reason Stop Dose Admin Acetaminophen 1,000 mg 06/05/19 13:45 06/10/19 04:59 Tylenol - PO Not Given TID IVAN Amino Acids 30 ml 06/04/19 08:00 06/10/19 09:45 Prosource No Carb Liquid Pkt PO 30 ml DAILY@0800 IVAN Administration Baclofen 10 mg 06/03/19 13:24 06/09/19 01:08 Lioresal - PO 10 mg TID PRN Administration PAIN Calcium Carbonate/Cholecalciferol 2 tab 06/06/19 11:45 06/10/19 09:47 Os-Manuel 500+D - PO 2 tab DAILY IVAN Administration Docusate Sodium 100 mg 06/08/19 15:30 06/10/19 09:46 Colace - PO 100 mg DAILY IVAN Administration Enoxaparin Sodium 40 mg 06/02/19 10:00 06/10/19 09:47 Lovenox - SQ Not Given DAILY IVAN Ibuprofen 400 mg 06/09/19 00:43 06/09/19 01:08 Motrin - PO 400 mg Q6H PRN Administration FEVER Methyl Salicylate 1 applic 06/04/19 11:30 06/10/19 09:45 Magdaleno-Connolly - TP 1 applic DAILY IVAN Administration Oxybutynin Chloride 5 mg 06/09/19 13:00 06/10/19 09:46 Ditropan - PO 5 mg DAILY IVAN Administration Pantoprazole Sodium 40 mg 06/08/19 15:30 06/10/19 09:47 Protonix Iv IVPUSH 40 mg DAILY IVAN Administration Polyethylene Glycol 17 gm 06/08/19 15:30 06/10/19 09:54 Miralax (For Daily Use) - PO 17 gm DAILY IVAN Administration Potassium Chloride 20 meq 06/02/19 20:30 06/10/19 09:46 K-Dur - PO 20 meq DAILY IVAN Administration Senna 1 tab 06/08/19 22:00 06/09/19 21:14 Senna - PO 1 tab HS IVAN Administration Venlafaxine HCl 37.5 mg 06/05/19 13:45 06/10/19 09:46 Effexor Xr - PO 37.5 mg DAILY IVAN Administration ASSESSMENT/PLAN: Seen and examined; declines surgical intervention. Starting clinimix and megase ; will discuss with psych regarding inpatient eating disorder facillity placement. Problems include: Subacute to acute sacral fx, Schizophrenia without active psychosis, questionable competency Severe protein calorie malnutrition Severe deceonditioning Likely HTN hx Social issues Osteoporosis Underweight (BMI 14.2) Full Code Visit type - Emergency Visit Emergency Visit: Yes ED Registration Date: 06/02/19 Care time: The patient presented to the Emergency Department on the above date and was hospitalized for further evaluation of their emergent condition. - New Patient This patient is new to me today: No - Critical Care Critical Care patient: No
[2019-06-10] MEDS ORDERED: MEGESTROL ACETATE 400 MG/10 ML UNIT DOSE CUP PO SCH (16:45)
[2019-06-10] MEDS ORDERED: AMINO ACIDS 4.25%/D5W 1,000 ML IV SCH (16:45)
[2019-06-10] MEDS: SENNOSIDES 8.6MG TABLET (FP) PO SCH (21:07)
[2019-06-11] MEDS: BACLOFEN 10 MG TABLET (FP) PO PRN ×2 (04:27→08:04)
[2019-06-11] MEDS: IBUPROFEN 400 MG TABLET (FP) PO PRN (04:27)
[2019-06-11] MEDS: ACETAMINOPHEN 500 MG TABLET (FP) PO SCH (05:54)
[2019-06-11] MEDS: AMINO ACIDS/PROTEIN HYDROLYS 30 ML LIQUID.PKT PO SCH (08:04)
[2019-06-11] MEDS: POTASSIUM CHLORIDE TABS 20 MEQ TABLET.ER (FP) PO SCH (09:22)
[2019-06-11] MEDS: ENOXAPARIN NA (PORCINE) 40 MG/0.4 ML DISP.SYRIN SQ SCH ×2 (09:22→09:30)
[2019-06-11] MEDS: DOCUSATE SODIUM 100 MG CAPSULE (FP) PO SCH (09:22)
[2019-06-11] MEDS: PANTOPRAZOLE SODIUM 40 MG VIAL IVPUSH SCH (09:23)
[2019-06-11] MEDS: CALCIUM 500MG/VIT-D 200 UNITS COMBO TABLET (FP) PO SCH (09:23)
[2019-06-11] MEDS: OXYBUTYNIN CHLORIDE 5 MG TABLET PO SCH (09:23)
[2019-06-11] MEDS: VENLAFAXINE HCL 37.5 MG E.R. CAPSULE (FP) PO SCH (09:23)
[2019-06-11] MEDS: POLYETHYLENE GLYCOL 3350 119 GM BTL PO SCH (09:23)
[2019-06-11] MEDS: METHYL SALICYLATE/MENTHOL OINT 30 GM TUBE TP SCH (09:24)
[2019-06-11 10:13] VITALS: BP 124/72; PULSE 89; TEMP 987.8
--- NOTE | 2019-06-11 14:17 | DS ---
Physical Exam: SUBJECTIVE: Patient seen and examined at bedside. States this AM, that she feels better. Had BM over weekend, and w/ better appetite. Verbalized to selling underwriter that she does not want to have surgery. Going to [facility]. OBJECTIVE: Vital Signs Period Temp Pulse Resp BP Sys/Ryan Pulse Ox Last 24 Hr 98.0 F-987.8 F 82-89 16-20 97-124/57-72 95-97 Physical Exam general: resting in bed, cachectic HEENT: NCAT neck: supple cardio: S1, S2 rrr. no r/m/g pulm: cta b/l abdomen: nontender,nondistended MSK: unable to complete active, passive ROM; hip flexion, extension . neuro: vp clinical 2-12 grossly intact LABS Laboratory Tests 06/01/19 06/02/19 06/03/19 21:40 08:23 08:33 WBC 9.2 6.2 4.9 Hgb 10.1 L 9.6 L Hct 30.8 L 28.9 L Plt Count 286 276 331 06/05/19 06/06/19 06/07/19 08:03 07:25 07:50 WBC 6.1 8.4 11.7 H Hgb 10.4 L 10.5 L 10.6 L Hct 31.6 L 31.9 L 32.2 L Plt Count 415 D 470 H 471 H 06/08/19 06/09/19 06/10/19 08:33 06:48 07:00 WBC 9.3 9.9 10.7 H Hgb 9.6 L 9.4 L 9.2 L Hct 28.8 L 28.4 L 28.3 L Plt Count 552 H 585 H 614 H 06/07/19 12:38 PT with INR 11.50 INR 0.97 06/01/19 06/02/19 06/02/19 21:40 08:23 17:20 Sodium 141 142 139 Potassium 3.3 L 3.1 L 3.4 L Chloride Carbon Dioxide BUN 27.9 H 23.6 H 24.0 H Creatinine 0.5 L 0.5 L 0.6 AST 18 15 ALT 13 13 Alkaline Phosphatase 107 102 C-Reactive Protein Total Protein 5.2 L 5.1 L Albumin 2.7 L 2.5 L 06/03/19 06/05/19 06/05/19 08:33 08:03 15:00 Sodium 143 138 Potassium 3.5 4.7 Chloride Carbon Dioxide BUN 15.0 16.4 Creatinine 0.6 0.4 L AST ALT Alkaline Phosphatase C-Reactive Protein 1.3 H Total Protein 5.3 L Albumin 2.5 L 06/07/19 06/08/19 06/09/19 07:50 08:33 06:48 Sodium 132 L 134 L 133 L Potassium 5.0 4.7 4.6 Chloride 96 L 96 L 97 L Carbon Dioxide 31 33 H 29 BUN 28.6 H 33.2 H 37.9 H Creatinine 0.4 L 0.6 0.6 AST ALT Alkaline Phosphatase C-Reactive Protein Total Protein Albumin 06/10/19 07:00 Sodium Potassium 4.5 Chloride 100 Carbon Dioxide 31 BUN 34.0 H Creatinine 0.4 L AST ALT Alkaline Phosphatase C-Reactive Protein Total Protein Albumin 06/02/19 20:30 Urine Ketones Trace H Urine Blood Trace Urine Nitrite Negative Urine Bilirubin Negative Urine Urobilinogen 1.0 Ur Leukocyte Esterase Negative Urine WBC (Auto) 52.8 06/09/19 13:50 Stool Occult Blood Negative 06/05/19 06/06/19 06/06/19 15:00 07:50 13:55 RPR Titer Nonreactive Hep C Ab Diagnostic <0.1 HIV 1&2 Ag/Ab, 4th Gen Non reactive Imaging 06/01: Lumbar spine XR: since prior study, pt is rotated to the left. prominent heart, sclerotic knob, prominent zeeshan but clear lung caldwell. may be hiatal hernia. 06/01: CXR: scoliosis with convexity to the right, clear lungs, sclerotic, normal zeeshan and enlarged heart. an acute chest process is not seen. 06/02: Lumbar spine MRI: grade 2 spondylolithesis of S1 over S2 sequela most probably to an old injury. reevaluation when possible with MRI or CT scan of the sacrum with reformatted images recommended. no suspicious underlying pathologic bone marrow replacement or prevertebral soft tissue masses or hematoma suspected at this study. no evidence of midline or foraminal dissc herniation. no evidence of spinal stenosis. distended bladder 06/05: CT lumbar spine: acute vs. subacute vertical fx in sacral alae bilaterally. horizontal sacral fx S1-S2- chronic. resultant mild narrowing of the central sacral canal is noted 06/07/19: CTAP: small b/l pleural effusions, moderate nonspecific fluid-filled gastric distension. moderate to large hiatal hernia. possible endometrial thickening. correlation with sonography is suggested. moderate colonic fecal retention. mild retention of bladder. acute/early acute vertical fractures seen of sacral alae bilaterally. transverse fracture of s2-s3 junction with resultant anterior subluxation of approx 40%. HOSPITAL COURSE: Date of Admission:06/02/19 Date of Discharge: 06/11/19 73F w/ pmh of anorexia, insomnia, who presented to [facility] ED w/ complaint of worsening lower back pain a/w BLE spasms and pain x 1week. Admitted for frailty , and intractable pain impeding ambulation. #Lower back pain a/w BLE pain likely 2/2 acute/subacute fx -XR spine without acute changes -CT, MRI L-spine noted as above -per neurosx, pt refusing sx on Tuesday. Verbalized to selling underwriter today as well () -c/w tylenol PRN and bengay application on d/c -on effexor for neuropathic pain. to continue on d/c -c/w calcium, vit D as likely osteoporosis #?hx schizophrenia -seen by psych; with competency to make own decisions -d/w [facility]'s, pt has long hx schizophrenia. was not d/c on meds likely d/t poor f/u. -Psych: Dr. Madrigal. encouraged f/u #Dark emesis -FOBT (-) -CTAP w / evidence of moderate to large hiatal hernia -H/H currently stable -c/w protonix on d/c -no sign active bleeding #fecal retention - improved -c/w senna, miralax and colace -with BM on d/c #distended bladder -improved on d/c, corral removed #severe protein malnutrition, h/o anorexia -dietary consult: recommend ensure enlive, prosource -may benefit from eating disorders facility upon d/c however to [facility] #normocytic anemia, stable -received venoferx1 #isolated elevated ALP -may be 2/2 bone destruction, with fx history -GGT WNL -c/t monitor, no acute intervention needed -started on vit D, calcium #diet reg diet, with ensure supplementation d/c on megestrol unable to give clinimix at facility (no TPN allowed) encouraged to f/u with dietary at facility Minutes to complete discharge: 45 <Juani Soto - Last Filed: 06/11/19 14:21> Physical Exam: Seen and examined; please see resident note for further historical information. I personally verified all lu historical information and exam findings. Personally interpreted all imaging and diagnostics and reviewed appropriate consults. I reviewed all labs and vital signs as per resident note and EMR as documented. I agree with the above assessment and plan unless supplemented by myself in the following. 10 item review of systems completed and is negative aside from as discussed in the subjective data in my own/the resident documentation. Patient presents with stated dark emesis with negative FOBT and no further issues, noted to have hiatal hernia and discharged on Protonix. She had chronic back pain secondary to chronic issues with an acute component secondary to an acute issue. She was described in the above imaging. The patient did not wish for any procedure and was found to have capacity to do so. They will be discharged to facility. They have history of schizophrenia but not on any medications due to social issues. They have an issue with ongoing anorexia, they had no issues with refeeding syndrome or food refusal while here. Protein calorie malnutrition was noted, they were kept on TPN for a day but there is no compelling indication to continue it given the lack of profound complications of malnutrition the patient was eating and tolerating p.o. Furthermore, they will need to follow-up with primary care to start osteoporosis treatment as an outpatient to restart vitamin D and calcium. <Florin Johns - Last Filed: 06/25/19 07:48> Discharge Summary Problems reviewed: Yes Reason For Visit: SPASM OF BACK MUSCLES,BACK PAIN - Home Medications Comprehensive Discharge Medication List: Ambulatory Orders Methyl Salicylate/Menthol Oint [Analgesic [place] -] 1 applic TP DAILY 30 Days applic 06/06/19 Acetaminophen [Tylenol -] 650 mg PO Q6H #100 tablet 06/11/19 Calcium 500Mg/Vit-D 200 Units [Os-Manuel 500+D -] 2 tab PO DAILY tab 06/11/19 Docusate Sodium [Colace -] 100 mg PO DAILY #0 capsule 06/11/19 Megestrol Acetate Oral Susp [Megace Oral Suspension -] 400 mg PO DAILY cup Oxybutynin Chloride 5 mg PO DAILY #30 tablet 06/11/19 Pantoprazole Sodium [Protonix -] 20 mg PO DAILY #30 tablet.ec 06/11/19 Polyethylene Glycol 3350 [Miralax 119 gm Btl -] 17 gm PO DAILY bottle 06/11/19 Sennosides [Senna -] 1 tab PO HS tablet 06/11/19 Venlafaxine HCl ER [Effexor Xr -] 37.5 mg PO DAILY cap.er.24h 06/11/19 <Juani Soto - Last Filed: 06/11/19 14:21> - Home Medications Comprehensive Discharge Medication List: Ambulatory Orders Methyl Salicylate/Menthol Oint [Analgesic [place] -] 1 applic TP DAILY 30 Days applic 06/06/19 Acetaminophen [Tylenol -] 650 mg PO Q6H #100 tablet 06/11/19 Calcium 500Mg/Vit-D 200 Units [Os-Manuel 500+D -] 2 tab PO DAILY tab 06/11/19 Docusate Sodium [Colace -] 100 mg PO DAILY #0 capsule 06/11/19 Megestrol Acetate Oral Susp [Megace Oral Suspension -] 400 mg PO DAILY cup Oxybutynin Chloride 5 mg PO DAILY #30 tablet 06/11/19 Pantoprazole Sodium [Protonix -] 20 mg PO DAILY #30 tablet.ec 06/11/19 Polyethylene Glycol 3350 [Miralax 119 gm Btl -] 17 gm PO DAILY bottle 06/11/19 Sennosides [Senna -] 1 tab PO HS tablet 06/11/19 Venlafaxine HCl ER [Effexor Xr -] 37.5 mg PO DAILY cap.er.24h 06/11/19 <Florin Johns - Last Filed: 06/25/19 07:48> Condition: Good - Instructions Diet, Activity, Other Instructions: You were in the hospital because you were feeling weak. You were found to have fractures of your sacral alae. You were seen by a neurosurgeon but did not want to undergo surgery. You will be sent to a [facility] facility to continue rehabilitation. Medications 1. You may continue tylenol 650mg every 6 hours as needed for pain control. You may also apply bengay muscle salve to your hip area 2. Continue to take senna 1 pill daily, colace 1 pill day, and miralax (17gm) daily, as needed to help with constipation. 3. You have been started on megestrol acetate 400mg daily to help with your appetite. Please also continue to have ensure. 4. You have been started on effexor 37.5mg (1 pill)daily for your depression 5. Take protonix 1 pill daily to help with your stomach acidity. 6. We have started you on oxybutynin to help with your urinary problems. Take 1 pill daily. 7. Take 2 pills of vitamin D/calcium daily to help with bone strength Care You will need to follow closely with a bedspread seamer at your facility Follow up Please follow with the following doctors on your discharge: -Dr. Madrigal: a psychiatrist who saw you in the hospital - 1 week -Dr. Garo Tolentino, neurosurgeon, if you decide to have surgery on your sacrum -1 week -your primary care doctor, Dr. Rosario - within 3-5 days to discuss your visit Referrals: Kathryn Madrigal MD [Staff Physician] - 1 Week Garo Tolentino MD, FAANS [Staff Physician] - 1 Week Ramon Rosario [Primary Care Provider] - 1 Week Disposition: [facility] This patient is new to me today: No Emergency Visit: No Critical Care patient: No - Discharge Referral Referred to [facility] No <Juani Soto - Last Filed: 06/11/19 14:21> ATTENDING PHYSICIAN STATEMENT I saw and evaluated the patient. I reviewed the resident's note and discussed the case with the resident. I agree with the resident's findings and plan as documented. SUBJECTIVE: OBJECTIVE: ASSESSMENT AND PLAN: <Florin Johns - Last Filed: 06/25/19 07:48>
== END 2019-06-11 13:43 | DRG 551 ==
LOC: JER 16:39 → JERBED 20:45 → J6S 06-02 00:46 → OBSVTOIN 06-02 01:58 → J6S 06-02 15:52
PROVIDERS: ADMIT Internal Medicine; ATTEND Internal Medicine
DX: S32.10XA Unspecified fracture of sacrum, initial encounter for closed fracture (principal); E43 Unspecified severe protein-calorie malnutrition; Z68.1 Body mass index [BMI] 19.9 or less, adult; R64 Cachexia; E87.1 Hypo-osmolality and hyponatremia; M41.9 Scoliosis, unspecified; M54.5 Low back pain; E87.6 Hypokalemia; R63.0 Anorexia; M81.0 Age-related osteoporosis without current pathological fracture; X58.XXXA Exposure to other specified factors, initial encounter; Y93.9 Activity, unspecified; Y92.89 Other specified places as the place of occurrence of the external cause; Y99.9 Unspecified external cause status
CPT/HCPCS: 36415; 71045-TC-FY; 72100-TC-FY; 72131-TC; 72148-TC; 74176-TC; 80048; 80053; 80061; 81003; 82272; 82607; 82728; 82977; 83036; 83540; 83550; 83721; 83735; 84100; 84132; 84443; 85025; 85027; 85610; 85651; 86140; 86593; 86803; 86850; 86900; 86901; 87389; 93005; 93010; 93306-TC; 97116-GP; 97162-GP; 99285-25; G0378; J0475; J1756; J7030

== ENCOUNTER 2020-03-26 16:54 | Inpatient (IN) | payer OTHER ==
--- NOTE | 2020-03-26 17:16 | PDOC ---
History of Present Illness - History of Present Illness Initial Comments: 03/26/20 74 yo f coming from [facility] with pmh of manutrition, anemia, depression, sacral fracture presenting to ED for nausea, vomiting and poor appetite. Pt was poor historian so [facility] was called and said pt usually has nausea and white emesis everyday, but today pt had increased emesis. [facility] was unable to say if pt had bloody or bilious emesis (pt emesis in ED was not bloody or bilious). According to pt she has been having symptoms for two years and may be worse today. Pt today denies chest pain, shortness of breath, abdominal pain, fevers, or chills. Pt does have increased weakness which she is admitted to [facility] for rehab. PMH: above Allergies: NKA Social: denies smoking drinking and drugs. From [facility] PCP: Dr. Vivar <Hernando Bella - Last Filed: 03/26/20 23:08> <Janice Kramer - Last Filed: 03/28/20 16:09> - General Chief Complaint: Weakness Stated Complaint: WEAKNESS Time Seen by Provider: 03/26/20 17:06 Past History - Medical History Anemia: Yes COPD: No Psychiatric Problems: Yes (SCHIZOPHRENIA.) - Reproductive History Is Patient Now?: No - Psycho-Social/Smoking History Smoking History: Never smoked Have you smoked in the past 12 months: No Information on smoking cessation initiated: No - Substance Abuse Hx (Audit-C & DAST Scrn) How often the patient has a drink containing alcohol: Never Score: In Men: 4 or > Positive; In Women: 3 or > Positive: 0 Screen Result (Pos requires Nsg. Audit-10AR): Negative In the last yr the pt used illegal drug/Rx for NonMed reason: No Score: Yes response is considered Positive: 0 Screen Result (Positive result requires Nsg. DAST-10): Negative <Hernando Bella - Last Filed: 03/26/20 23:08> <Janice Kramer - Last Filed: 03/28/20 16:09> - Medical History Allergies/Adverse Reactions: Allergies Allergy/AdvReac Type Severity Reaction Status Date / Time No Known Allergies Allergy Verified 03/26/20 17:05 Home Medications: Ambulatory Orders Methyl Salicylate/Menthol Oint [Analgesic [place] -] 1 applic TP DAILY 30 Days applic 06/06/19 Acetaminophen [Tylenol -] 650 mg PO Q6H #100 tablet 06/11/19 Calcium 500Mg/Vit-D 200 Units [Os-Manuel 500+D -] 2 tab PO DAILY tab 06/11/19 Docusate Sodium [Colace -] 100 mg PO DAILY #0 capsule 06/11/19 Megestrol Acetate Oral Susp [Megace Oral Suspension -] 400 mg PO DAILY cup 06/11/19 Oxybutynin Chloride 5 mg PO DAILY #30 tablet 06/11/19 Pantoprazole Sodium [Protonix -] 20 mg PO DAILY #30 tablet.ec 06/11/19 Polyethylene Glycol 3350 [Miralax 119 gm Btl -] 17 gm PO DAILY bottle 06/11/19 Sennosides [Senna -] 1 tab PO HS tablet 06/11/19 Venlafaxine HCl ER [Effexor Xr -] 37.5 mg PO DAILY cap.er.24h 06/11/19 Review of Systems - Review of Systems Comments:: 03/26/20 23:03 GENERAL/CONSTITUTIONAL: No fever or chills. No weakness. HEAD, EYES, EARS, NOSE AND THROAT: No change in vision. No ear pain or discharge. No sore throat. CARDIOVASCULAR: No chest pain or shortness of breath RESPIRATORY: No cough, wheezing, or hemoptysis. GASTROINTESTINAL:Nausea and vomiting GENITOURINARY: No dysuria, frequency, or change in urination. MUSCULOSKELETAL: No joint or muscle swelling or pain. No neck or back pain. SKIN: No rash NEUROLOGIC: No headache, vertigo, loss of consciousness, or change in strength/sensation. ENDOCRINE: Dec weight HEMATOLOGIC/LYMPHATIC: No anemia, easy bleeding, or history of blood clots. ALLERGIC/IMMUNOLOGIC: No hives or skin allergy. 03/26/20 23:08 <Hernando Bella - Last Filed: 03/26/20 23:08> *Physical Exam - Vital Signs Last Vital Signs Temp Pulse Resp BP Pulse Ox 98.7 F 72 17 102/62 97 03/26/20 17:02 03/26/20 17:02 03/26/20 17:02 03/26/20 17:02 03/26/20 17:02 - Physical Exam 03/26/20 23:09 GENERAL: Awake, alert, and fully oriented, in no acute distress HEAD: No signs of trauma, normocephalic, atraumatic EYES: PERRLA, EOMI, sclera anicteric, conjunctiva clear ENT: Auricles normal inspection, hearing grossly normal, nares patent, oropharynx clear without exudates. Moist mucosa NECK: Normal ROM, supple, no lymphadenopathy, JVD, or masses LUNGS: No distress, speaks full sentences, clear to auscultation bilaterally HEART: Regular rate and rhythm, normal S1 and S2, no murmurs, rubs or gallops, peripheral pulses normal and equal bilaterally. ABDOMEN: Soft, nontender, normoactive bowel sounds. No guarding, no rebound. No masses EXTREMITIES : Normal inspection, Normal range of motion, no edema. No clubbing or cyanosis. NEUROLOGICAL: Cranial nerves II through XII grossly intact. Normal speech, normal gait, no focal sensorimotor deficits SKIN: Warm, Dry, normal turgor, no rashes or lesions noted <Hernando Bella - Last Filed: 03/26/20 23:08> - Vital Signs Last Vital Signs Temp Pulse Resp BP Pulse Ox 98.5 F 74 18 122/74 97 03/28/20 15:00 03/28/20 15:00 03/28/20 15:00 03/28/20 15:00 03/28/20 15:00 <Janice Kramer - Last Filed: 03/28/20 16:09> Heart Score/ECG Review - ECG Impressions Comment:: 03/26/20 18:21 Normal Sinus rhythm Regular rate and rhythm Normal AL QRS and Qt interval No signs of ischemia or ST segment elevaiton <Hernando Bella - Last Filed: 03/26/20 23:08> ED Treatment Course - LABORATORY CBC & Chemistry Diagram: 03/26/20 17:44 03/26/20 17:44 <Hernando Bella - Last Filed: 03/26/20 23:08> - LABORATORY CBC & Chemistry Diagram: 03/28/20 10:30 03/28/20 10:30 - ADDITIONAL ORDERS Additional order review: 03/26/20 17:44 RBC 3.32 L MCV 91.9 MCHC 32.6 RDW 16.0 H MPV 7.9 Neutrophils % 45.1 D Lymphocytes % 40.6 H D Monocytes % 10.5 H Eosinophils % 2.4 D Basophils % 1.4 D - RADIOLOGY Radiology Studies Ordered: Category Date Time Status CHEST PA & LAT [RAD] Stat Radiology 03/26/20 17:45 Completed - Medications Given in the ED: ED Medications Discontinued Medications Generic Name Dose Route Start Last Admin Trade Name Freq PRN Reason Stop Dose Admin Acetaminophen 650 mg 03/26/20 23:00 03/27/20 12:48 Tylenol - PO Not Given Q6H IVAN Al Hydroxide/Mg Hydroxide 30 ml 03/26/20 17:44 03/26/20 18:05 Mylanta Oral Suspension - PO 03/26/20 17:45 30 ml ONCE ONE Administration Famotidine/Sodium Chloride 20 mg in 50 mls @ 100 mls/hr 03/26/20 17:44 03/26/20 18:05 Pepcid 20 Mg Premixed Ivpb - IVPB 03/26/20 18:13 100 mls/hr ONCE ONE Administration Sodium Chloride 1,000 mls @ 42 mls/hr 03/27/20 06:30 03/27/20 23:10 Normal Saline - IV Not Given [facility] Influenza Virus Vaccine 60 mcg 03/28/20 10:00 03/28/20 11:07 Flulaval Quad [id number] Syr IM 03/28/20 10:01 Not Given .ONCE ONE Metoclopramide HCl 10 mg 03/26/20 17:48 03/26/20 18:05 Reglan Injection - IVPUSH 03/26/20 17:49 10 mg ONCE ONE Administration Ondansetron HCl 4 mg 03/26/20 18:27 03/26/20 19:13 Zofran Injection IVPUSH 03/26/20 18:28 Not Given ONCE ONE Pantoprazole Sodium 40 mg 03/27/20 10:00 03/27/20 09:56 Protonix Iv IVPUSH Not Given DAILY [facility] Pneumococcal 13-Valent Conj Vacc 0.5 ml 03/28/20 10:00 03/28/20 11:07 Prevnar 13 Syringe - IM 03/28/20 10:01 Not Given .ONCE ONE Sodium Chloride 1,000 ml 03/26/20 17:47 03/26/20 18:05 Normal Saline - IV 03/26/20 17:48 1,000 ml ONCE ONE Administration <Janice Kramer - Last Filed: 03/28/20 16:09> Medical Decision Making - Medical Decision Making 03/26/20 17:50 74 yo female with pmh malnutrition, bulimia, depression, and anemia presents to the ED for worsening nausea and emesis. Pt has no abdominal pain. DDx: Viral Gastroenteritis, pancreatis, ACS CBC, CMP, Lipase, ekg, cardiac enzymes 03/26/20 20:06 Pt labs came back wnl. K elevated but hemolyzed Pt after pepcid and maalox was able to eat a sandwich and drink water without emesis. Pt will be discharged back to [facility] 03/26/20 22:58 Dr. Espana called to have pt admitted and not send back to [facility]. Pt will be admitted for failure to thrive to [facility] and be transferred to Dr. Espana. <Hernando Bella - Last Filed: 03/26/20 23:08> Discharge - Discharge Information Problems reviewed: Yes - Admission Yes <Hernando Bella - Last Filed: 03/26/20 23:08> - Discharge Information Problems reviewed: Yes <Janice Kramer - Last Filed: 03/28/20 16:09> - Discharge Information Clinical Impression/Diagnosis: Failure to thrive Vomiting Qualifiers: Vomiting type: unspecified Vomiting Intractability: unspecified Nausea presence: with nausea Qualified Code(s): R11.2 - Nausea with vomiting, unspecified Condition: Stable
--- OUTSIDE RECORDS SUMMARY | 2020-03-26 17:17 | XMS ---
:1945 Author Organization [facility] Care Team Providers Name Role Phone Ernesto Friedman Unavailable Unavailable SabRobbie griffithan Unavailable Unavailable Robbie Friedmanan Unavailable Unavailable Robbie Friedmanan Unavailable Unavailable ED STAFF PHYSICIANRUDI Unavailable Unavailable NARDA Blount Unavailable Unavailable ED STAFF PHYSICIAN Unavailable Unavailable ED STAFF PHYSICIAN, STAFF Unavailable Unavailable [facility] Unavailable Unavailable Luna Granda MD Unavailable Unavailable Pankaj Granda MD Unavailable Unavailable Pankaj Granda MD Unavailable Unavailable Pankaj Granda MD Unavailable Unavailable Pankaj Granda MD Unavailable Unavailable Pankaj Granda MD Unavailable Unavailable Pankaj Granda MD Unavailable Unavailable Pankaj Granda MD Unavailable Unavailable Pankaj Granda MD Unavailable Unavailable Pankaj Granda MD Unavailable Unavailable Pankaj Granda MD Unavailable Unavailable Pankaj Granda MD Unavailable Unavailable Pankaj Granda MD Unavailable Unavailable Pankaj Granda MD Unavailable Unavailable Pankaj Granda MD Unavailable Unavailable Pankaj Granda MD Unavailable Unavailable Pankaj Granda MD Unavailable Unavailable Pankaj Granda MD Unavailable Unavailable Pankaj Granda MD Unavailable Unavailable Pankaj Granda MD Unavailable Unavailable Pankaj Granda MD Unavailable Unavailable Pankaj Granda MD Unavailable Unavailable Re-disclosure Warning The records that you are about to access may contain information from federally- assisted alcohol or drug abuse programs. If such information is present, then the following federally mandated warning applies: This information has been disclosed to you from records protected by federal confidentiality rules (42 CFR part 2). The federal rules prohibit you from making any further disclosure of this information unless further disclosure is expressly permitted by the written consent of the person to whom it pertains or as otherwise permitted by 42 CFR part 2. A general authorization for the release of medical or other information is NOT sufficient for this purpose. The Federal rules restrict any use of the information to criminally investigate or prosecute any alcohol or drug abuse patient.The records that you are about to access may contain highly sensitive health information, the redisclosure of which is protected by Article 27-F of the [facility] Public Health law. If you continue you may haveaccess to information: Regarding HIV / AIDS; Provided by facilities licensed or operated by the [facility] Office of Mental Health; or Provided by the [facility] Office for People With Developmental Disabilities. If such information is present, then the following [facility] mandated warning applies: This information has been disclosed to you from confidential records which are protected by state law. State law prohibits you from making any further disclosure of this information without the specific written consent of the person to whom it pertains, or as otherwise permitted by law. Any unauthorized further disclosure in violation of state law may result in a fine or long term sentence or both. A general authorization for the release of medical or other information is NOT sufficient authorization for further disclosure. Encounters Encounter Providers Location Date Indications Data Source(s ) Outpatient Attender: [id number] 07/31/2019 [facility] 01:13:17 PM [facility]) EST Patient admitted. Emergency Attender: ED STAFF H 06/01/2019 07:46:00 AM [facility] PHYSICIANAttender: STAFF ED EST - 06/01/2019 [facility] STAFF PHYSICIANAdmitter: ED 04:37:00 PM EST STAFF PHYSICIAN Patient discharged. Emergency Attender: STAFF ED STAFF H 05/31/2019 09:43:00 PM [facility] PHYSICIAN EST - 06/01/2019 08:43:00 Center AM EST Patient discharged. Emergency Attender: STAFF ED STAFF H 05/30/2019 12:32:00 AM [facility] PHYSICIAN EST - 05/30/2019 08:55:00 Center AM EST Patient discharged. Emergency Attender: RUDI ED STAFF H 05/29/2019 06:43:00 AM [facility] PHYSICIANAttender: STAFF ED EST - 05/29/2019 [facility] Center STAFF PHYSICIANAdmitter: 02:28:00 PM EST RUDI ED STAFF PHYSICIAN Patient discharged. Emergency Attender: STAFF ED STAFF H 05/08/2019 08:59:00 PM [facility] PHYSICIAN EST - 05/09/2019 04:26:00 Center AM EST Patient discharged. Emergency Attender: NARDA Diallo 05/04/2019 08:10:00 PM Buckleytan James: STAFF ED STAFF EST - 05/05/2019 [facility] Center PHYSICIANAdmitter: NARDA 08:59:00 AM EST MARIA FERNANDA Blount Patient discharged. Inpatient Attender: Hirendra Unit 4-Unit 6 06/24/2018 [facility] (Isai Mcknighte MDAttender: 12:00:00 PM EST - C enter for Nursing And Ernesto Friedman 05/05/2019 Rehabilit ation) 10:27:00 AM EST Patient discharged. Medications Medication Brand Start Product Dose Route Administrative Pharmacy [facility] Indications Reaction Description Data Name Date Form Instructions Instructions Source(s) Haldol 860622 complet Haldol SIGM ACARE Decanoate 05416 2019 ed Decanoate 50 ( Alex (haloperido 06:25: mg/mL Park l 48 AM intramuscula Center for decanoate) EST r solution Lashawn sing 50 mg/mL And intramuscul Rehabili ta ar solution tion) mirtazapine Mirtaz mirtaz apine [facility] 7.5 mg apine 2018 ed 7.5 mg (Alex tablet 7.5 MG 05:40: tablet Park Oral 17 AM Center for Tablet EST Nursing And Rehabilita tion) Remeron Mirtaz 04/25/ complet Remeron 30 [facility] (mirtazapin apine 2019 ed mg tablet (S utton e) 30 mg 30 MG 05:37: Park tablet Oral 12 AM Center for Tablet EST Nursing [Sunset And on] Rehabilita tion) haloperidol Halope complet halope ridol [facility] 2 mg/mL ridol 2019 ed 2 mg/mL oral (Pastor tton oral 2 05:33: concentrate Park concentrate MG/ML 09 AM Center for Oral EST Nursing Soluti And on Rehabilita tion) Remeron Mirtaz 03/04/ complet Remeron 30 [facility] (mirtazapin apine 2019 ed mg tablet (S utton e) 30 mg 30 MG 12:46: Park tablet Oral 08 PM Center for Tablet EDT Nursing [Sun[place] And on] Rehabilita tion) haloperidol Halope halope ridol [facility] 2 mg/mL ridol 2019 ed 2 mg/mL oral (Pastor tton oral 2 10:36: concentrate Park concentrate MG/ML 05 AM Center for Oral EDT Nursing Soluti And on Rehabilita tion) Mylanta 279508 Mylanta 20 0 SIG[facility] (alum-mag 95830 2018 ed mg-200 mg-20 ( Alex hydroxide-s 02:51: mg/5 mL ora l Belén imeth) 200 02 AM suspension Ce nter for mg-200 EDT Nursing mg-20 mg/5 And mL oral Rehabilita suspension tion) Insurance Providers Payer name Policy type Policy ID Covered Covered libertarian's Policy P rosa / Coverage libertarian ID relationship to Ma Inf ormation type ma MEDICAID [id number] SP [id number] MEDICARE [id number] SP [id number] M [id number] 01 [id number] W [id number] Medicare Part Medicare [id number] Self [id number] B Part B Medicaid Medicaid [id number] Self [id number] MEDIBLUE OP O 01 Medicare Part 2 [id number] Self [id number] B Medicaid 3 [id number] Self [id number] Medicare Part Medicare [id number] Self [id number] A Part A Medicare Part Medicare [id number] Self [id number] B Part B Medicaid Medicaid [id number] Self [id number] Medicare Part Medicare [id number] 1 [id number] A Medicaid Medicaid [id number] 1 [id number] Medicare Part Medicare [id number] 1 [id number] B Outpatient Problems, Conditions, and Diagnoses Code Display Name Description Problem Type Effective Data Dates Source(s) Z00.00 Encounter for ENCNTR FOR GENERAL Diagnosis 06/01/2019 Krish Eddy general adult ADULT MEDICAL EXAM 07:46:00 AM Me dical medical examination W/O ABNORMAL EST Gary ter without abnormal FINDINGS findings D64.9 Anemia, unspecified ANEMIA, UNSPECIFIED Diagnosis 12/19/2 Kody Eddy 09:43:00 PM Medical EST Center M79.605 Pain in left leg PAIN IN LEFT LEG Diagnosis 05/31/2019 Sa sarika Eddy 09:43:00 PM Medical EST Center M79.604 Pain in right leg PAIN IN RIGHT LEG Diagnosis 05/31/2019 [facility] 09:43:00 PM Medical EST Center R11.2 Nausea with NAUSEA WITH Diagnosis 05/31/2019 [facility] vomiting, VOMITING, 09:43:00 PM Medical unspecified UNSPECIFIED EST Center R11.10 Vomiting, VOMITING, Diagnosis 05/31/2019 [facility] unspecified UNSPECIFIED 09:43:00 PM Medical EST Center M54.9 Dorsalgia, DORSALGIA, Diagnosis 05/30/2019 [facility] unspecified UNSPECIFIED 12:32:00 AM Medical EST Center E87.6 Hypokalemia HYPOKALEMIA Diagnosis 05/29/2019 [facility] 06:43:00 AM Medical EST Center M79.18 MYALGIA, OTHER SITE MYALGIA, OTHER SITE Diagnosis Kody Edd[facility] 06:43:00 AM Medical EST Center M53.3 Sacrococcygeal SACROCOCCYGEAL Diagnosis 05/29/2019 [facility] disorders, not DISORDERS, NOT 06:43:00 AM Medic al elsewhere ELSEWHERE EST Center classified CLASSIFIED R10.9 Unspecified UNSPECIFIED Diagnosis 05/08/2019 [facility] abdominal pain ABDOMINAL PAIN 08:59:00 PM Medic al EST Center F43.20 Adjustment ADJUSTMENT Diagnosis 05/04/2019 [facility] disorder, DISORDER, 08:10:00 PM Medical unspecified UNSPECIFIED EST Center F91.9 Conduct disorder, CONDUCT DISORDER, Diagnosis 05/04/2019 [facility] unspecified UNSPECIFIED 08:10:00 PM Medical EST Center R05 Cough Cough Diagnosis 04/24/2019 [facility] 12:00:00 AM (Isai Melissa [facility] n) Z23 Encounter for Encounter for Diagnosis 04/19/2019 [facility] E immunization immunization 12:00:00 AM (Isai natarajan [facility]) F32.0 Major depressive Major depressive Diagnosis 03/04/2019 [facility] disorder, single disorder, single 12:00:00 AM ( Isai Melissa episode, mild episode, mild EDT Center f or Nursing And Rehabilitatio n) R12 Heartburn Heartburn Diagnosis 02/20/2019 [facility] 12:00:00 AM (Isai [place] EDT [place] for [facility] Rehabil[facility] n) Results ID Date Data Source [id number] 12/18/2019 12:00:00 AM EDT [facility] Name Value Range Interpretation Code Description Data Marichuy rce(s) Supporting Document(s ) 2018-nCoV [facility] RNA XXX GARY+probe- Imp This lab was ordered by [employer] and reported by [employer] ID Date Data Source [id number] 12/06/2019 12:00:00 AM EDT [facility] Name Value Range Interpretation Code Description Data Marichuy rce(s) Supporting Document(s ) 2018-nCoV [facility] RNA XXX GARY+probe- Imp This lab was ordered by [employer] and reported by [employer] ID Date Data Source [id number] 12/01/2019 12:00:00 AM EDT [facility] Name Value Range Interpretation Code Description Data Marichuy rce(s) Supporting Document(s ) 2018-nCoV [facility] RNA XXX GARY+probe- Imp This lab was ordered by [employer] and reported by [employer] ID Date Data Source [id number] 11/16/2019 12:00:00 AM EDT [facility] Name Value Range Interpretation Code Description Data Marichuy rce(s) Supporting Document(s ) 2018-nCoV [facility] RNA XXX GARY+probe- Imp This lab was ordered by [employer] and reported by [employer] ID Date Data Source [id number] 10/30/2019 12:00:00 AM EDT [facility] Name Value Range Interpretation Code Description Data Marichuy rce(s) Supporting Document(s ) 2018-nCoV [facility] RNA XXX GARY+probe- Imp This lab was ordered by [employer] and reported by [employer] ID Date Data Source [id number] 10/26/2019 12:00:00 PM EDT [facility] Name Value Range Interpretation Description Data Sup porting Code Source(s) Document(s ) SARS CoV-2 [facility] Interpretation This lab was ordered by [facility] and reported by [facility]. ID Date Data Source [id number] 10/03/2019 12:00:00 PM EDT [facility] Name Value Range Interpretation Description Data Sup porting Code Source(s) Document(s ) SARS CoV-2 [facility] Interpretation This lab was ordered by [facility] and reported by [employer]. ID Date Data Source [id number] 05/29/2019 08:30:00 AM EST Krish [facility] 0 Name Value Range Interpretation Description Data Sup porting Code Source(s) Document(s ) Glucose NEGATIVE <content Saint [Mass/volume] styleCode="Renée Nunu in Urine by d">Urine Medical Test strip Glucose Center </content>NEGA TIVE MG/DL<content styleCode="Tess lics"> (NEGATIVE MG/DL)</conten t> Color of Urine YELLOW <content Saint styleCode="Renée Nunu d">Color, Medical Urine Center </content>YELL OW <content styleCode="Tess lics"> (YELLOW )</content> UNK CLEAR <content Saint styleCode="Renée Nunu d">Urine Medical Clarity Center </content>LEOLA R <content styleCode="Tess lics"> (CLEAR )</content> UNK NEGATIVE <content Saint styleCode="Renée Nunu d">Urine Medical Bilirubin Center </content>NEGA TIVE <content styleCode="Tess lics"> (NEGATIVE )</content> Ketones NEGATIVE <content Saint [Mass/volume] styleCode="Renée Nunu in Urine by d">Urine Medical Test strip Ketone Center </content>NEGA TIVE MG/DL<content styleCode="Tess lics"> (NEGATIVE MG/DL)</conten t> Hemoglobin NEGATIVE <content Saint [Presence] in styleCode="Renée Nunu Urine by Test d">Urine Blood Medical strip </content>NEGA Center TIVE <content styleCode="Tess lics"> (NEGATIVE )</content> Specific 1.015-1.02 Below low normal <content Saint gravity of 5 styleCode="Renée Nunu Urine by Test d">Urine Medical strip Specific Center [place] </content><= 1.005 L<content styleCode="Tess lics"> (1.015-1.025 )</content> pH of Urine by 4.5-8.0 <content Saint Test strip styleCode="Renée Nunu d">Urine pH Medical </content>6.0 Center <content styleCode="Tess lics"> (4.5-8.0 )</content> Protein NEGATIVE <content Saint [Mass/volume] styleCode="Renée Nunu in Urine by d">Urine Medical Test strip Protein Center </content>NEGA TIVE MG/DL<content styleCode="Tess lics"> (NEGATIVE MG/DL)</conten t> Urobilinogen 0.2-1.0 <content Saint [Units/volume] styleCode="Renée Nunu in Urine by d">Urine Medical Test strip Urobilinogen Center </content>0.2 MG/DL<content styleCode="Tess lics"> (0.2-1.0 MG/DL)</conten t> Leukocyte NEGATIVE <content Saint esterase styleCode="Renée Nunu [Presence] in d">Urine Medical Urine by Test Leukocyte Center strip </content>NEGA TIVE <content styleCode="Tess lics"> (NEGATIVE )</content> Nitrite NEGATIVE <content Saint [Presence] in styleCode="Renée Maderas Urine by Test d">Urine Medical strip Nitrite Center </content>NEGA TIVE <content styleCode="Tess lics"> (NEGATIVE )</content> ID Date Data Source [id number] 05/29/2019 07:57:00 AM EST Krish [facility] 0500 Name Value Range Interpretation Description Data Sup porting Code Source(s) Document(s ) Hematocrit 36.0-46. Below low normal <content Saint [Volume 0 styleCode="Bold Nunu Fraction] of ">Hematocrit Medical Blood by </content>33.0 Center Automated count % L<content styleCode="Ital ics"> (36.0-46.0 %)</content> Erythrocytes 4.0-5.1 Below low normal <content Saint [#/volume] in styleCode="Bold Nunu Blood by ">Red Blood Medical Automated count Cell Count Center </content>3.60 MCUMM L<content styleCode="Ital ics"> (4.0-5.1 MCUMM)</content > Leukocytes 4.4-11.0 <content Saint [#/volume] in styleCode="Bold Nunu Blood by ">White Blood Medical Automated count Cell Count Center </content>8.11 KCUMM<content styleCode="Ital ics"> (4.4-11.0 KCUMM)</content > Hemoglobin 12.3-16. Below low normal <content Saint [Mass/volume] in 0 styleCode="Bold Nunu Blood ">Hemoglobin Medical </content>10.9 Center G/DL L<content styleCode="Ital ics"> (12.3-16.0 G/DL)</content> Erythrocyte mean 32.0-37. <content Saint corpuscular 0 styleCode="Bold Nunu hemoglobin ">Mean Corpus. Medical concentration Hgb Center [Mass/volume] by Concentration Automated count (MCHC) </content>33.0 G/DL<content styleCode="Ital ics"> (32.0-37.0 G/DL)</content> Erythrocyte 11.5-14. Above high <content Saint distribution 5 normal styleCode="Bold Nunu width [Ratio] by ">Red Cell Medical Automated count Distribution Center Width </content>15.8 % H<content styleCode="Ital ics"> (11.5-14.5 %)</content> Erythrocyte mean 26.0-34. <content Saint corpuscular 0 styleCode="Bold Nunu hemoglobin ">Mean Medical [Entitic mass] Corposcular Center by Automated Hemoglobin count </content>30.3 PG<content styleCode="Ital ics"> (26.0-34.0 PG)</content> Erythrocyte mean 80.0-100 <content [facility] corpuscular .0 styleCode="Bold Nunu volume [Entitic ">Mean Medical volume] by Corpuscular Center Automated count Volume </content>91.7 FL<content styleCode="Ital ics"> (80.0-100.0 FL)</content> Lymphocytes 24.0-44. Below low normal <content Saint [#/volume] in 0 styleCode="Bold Nunu Blood by ">Lymphocyte Medical Automated count </content>22.2 Center % L<content styleCode="Ital ics"> (24.0-44.0 %)</content> Neutrophils 36-66 <content Saint [#/volume] in styleCode="Bold Nunu Blood by ">Neutrophil Medical Automated count </content>64.9 Center %<content styleCode="Ital ics"> (36-66 %)</content> UNK 1.6-7.3 <content Saint styleCode="Bold Nunu ">Neutrophil Medical Count Center </content>5.26 KCUMM<content styleCode="Ital ics"> (1.6-7.3 KCUMM)</content > Platelet mean 8.0-11.0 <content Saint volume [Entitic styleCode="Bold Nunu volume] in Blood ">Mean Platelet Medical by Automated Volume Center count </content>8.7 FL<content styleCode="Ital ics"> (8.0-11.0 FL)</content> Platelets 130-400 <content Saint [#/volume] in styleCode="Bold Nunu Blood by ">Platelet Medical Automated count Count Center </content>346 KCUMM<content styleCode="Ital ics"> (130-400 KCUMM)</content > UNK 0.2-0.9 <content Saint styleCode="Bold Nunu ">Monocyte Medical Count Center </content>0.71 KCUMM<content styleCode="Ital ics"> (0.2-0.9 KCUMM)</content > Eosinophils 0-5.0 <content Saint [#/volume] in styleCode="Bold Nunu Blood by ">Eosinophil Medical Automated count </content>0.7 Center %<content styleCode="Ital ics"> (0-5.0 %)</content> UNK 1.0-4.8 <content Saint styleCode="Bold Nunu ">Lymphocyte Medical Count Center </content>1.80 KCUMM<content styleCode="Ital ics"> (1.0-4.8 KCUMM)</content > UNK 0.0-0.6 <content Saint styleCode="Bold Nunu ">Eosinophil Medical Count Center </content>0.06 KCUMM<content styleCode="Ital ics"> (0.0-0.6 KCUMM)</content > Monocytes 3.0-10.0 <content Saint [#/volume] in styleCode="Bold Nunu Blood by ">Monocyte Medical Automated count </content>8.8 Center %<content styleCode="Ital ics"> (3.0-10.0 %)</content> Basophils 0.0-1.0 <content Saint [#/volume] in styleCode="Bold Nunu Blood by ">Basophil Medical Automated count </content>0.7 Center %<content styleCode="Ital ics"> (0.0-1.0 %)</content> UNK 0.0 <content Saint styleCode="Bold Nunu ">Nucleated Red Medical Blood Cell Center Count </content>0.00 KCUMM<content styleCode="Ital ics"> (0.0 KCUMM)</content > UNK 0-0.1 Above high <content Saint normal styleCode="Bold Nunu ">Immature Medical Granulocyte Center Count </content>0.22 KCUMM H<content styleCode="Ital ics"> (0-0.1 KCUMM)</content > UNK 0 <content Saint styleCode="Bold Nunu ">Nucleated Red Medical Blood Cell Center </content>0.0 /100<content styleCode="Ital ics"> (0 /100)</content> UNK < 1 Above high <content Saint normal styleCode="Bold Nunu ">Immature Medical Granulocyte Center Ratio </content>2.7 % H<content styleCode="Ital ics"> (< 1 %)</content> UNK 0.0-0.3 <content Saint styleCode="Bold Unnu ">Basophil Medical Count Center </content>0.06 KCUMM<content styleCode="Ital ics"> (0.0-0.3 KCUMM)</content > ID Date Data Source GFR(Creatinine).[id number] 05/29/2019 07:57:00 AM EST Krish cornell [facility] 0-0500 Name Value Range Interpretation Code Description Data Marichuy rce(s) Supporting Document(s ) UNK > 60 <content [facility] styleCode="Bold"> Medical Cent er EGFR </content>129 GFR<content styleCode="Italic s"> (> 60 GFR)</content> ID Date Data Source [id number] 05/29/2019 07:57:00 AM [facility] Name Value Range Interpretation Description Data Sup porting Code Source(s) Document(s ) Chloride 98-107 <content Saint [Moles/volume] styleCode="Renée Nunu in Serum or d">Chloride Medical Plasma </content>100 Center MEQ/L<content styleCode="Tess lics"> (98-107 MEQ/L)</conten t> Potassium 3.5-5.3 Below low normal <content Saint [Moles/volume] styleCode="Renée Nunu in Serum or d">Potassium Medical Plasma </content>3.2 Center MEQ/L L<content styleCode="Tess lics"> (3.5-5.3 MEQ/L)</conten t> Carbon 22-30 <content Saint dioxide, total styleCode="Renée Nunu [Moles/volume] d">Carbon Medical in Serum or Dioxide Center Plasma </content>29 MEQ/L<content styleCode="Tess lics"> (22-30 MEQ/L)</conten t> Sodium 137-145 Below low normal <content Saint [Moles/volume] styleCode="Renée Nunu in Serum or d">Sodium Medical Plasma </content>136 Center MEQ/L L<content styleCode="Tess lics"> (137-145 MEQ/L)</conten t> Glucose 74-106 Above high normal <content Saint [Mass/volume] styleCode="Renée Nunu in Serum or d">Glucose Medical Plasma </content>125 Center MG/DL H<content styleCode="Tess lics"> (74-106 MG/DL)</conten t> UNK 7-17 <content Saint styleCode="Renée Nunu d">BUN Medical </content>10 Center MG/DL<content styleCode="Tess lics"> (7-17 MG/DL)</conten t> Calcium 8.4-10.2 <content Saint [Mass/volume] styleCode="Renée Nunu in Serum or d">Calcium Medical Plasma </content>9.0 Center MG/DL<content styleCode="Tess lics"> (8.4-10.2 MG/DL)</conten t> Creatinine 0.5-1.3 <content Saint [Mass/volume] styleCode="Renée Nunu in Serum or d">Creatinine Medical Plasma </content>0.5 Center MG/DL<content styleCode="Tess lics"> (0.5-1.3 MG/DL)</conten t> UNK > 60 <content Saint styleCode="Renée Nunu d">EGFR Medical </content>129 Center GFR<content styleCode="Tess lics"> (> 60 GFR)</content> ID Date Data Source [id number] 04/23/2019 02:00:00 PM EST [facility] ([facility]) Name Value Range Interpretation Description Data Sup porting Code Source(s) Document(s ) XR .ACCESSION <td [facility] CHEST NUMBER: ID="Observation-T (Alex AP 1 [id number] NOTE: [id number] Park VIEW CHEST [id number] Center for (STAT00 ViewCLINICAL [id number]">([id number] Nursing 44) INDICATION: R05 ) XR CHEST AP 1 And Cough R05 VIEW Rehabilita Cough.Findings: ([id number])</td><t tion) Age-related d changes are ID="Observation-V present in the [id number] bony thorax. Soft [id number] tissues are [id number]">.ACCESSI unremarkable. ON NUMBER: Heart size is [id number] NOTE: within the upper CHEST 1 limits of normal. ViewCLINICAL There no hilar or INDICATION: R05 mediastinal Cough R05 contour Cough.Findings: abnormalities Age-related although there is changes are some calcific present in the atherosclerotic bony thorax. Soft change in the tissues are wall of the unremarkable. aorta. The Heart size is pulmonary within the upper parenchyma is limits of normal. clear without There no hilar or focal findings mediastinal such as contour consolidation, abnormalities mass, effusion or although there is pneumothorax. some calcific Costophrenic atherosclerotic angles are sharp change in the and the wall of the diaphragms are aorta. The well-defined.???I pulmonary mpression: parenchyma is Age-related clear without findings focal findings only....Electroni such as annemarie consolidation, SignedGlaser Rachael mass, effusion or pneumothorax. Costophrenic angles are sharp and the diaphragms are well-defined.???I mpression: Age-related findings only....Electroni annemarie SignedGlaser Rachael</td><td ID="Observation-U [id number]"></td><td ID="Observation-R [id number]"></td> <td ID="Observation-A [id number]"></td> <td ID="Observation-S [id number]">Final</ td> ID Date Data Source [id number] 02/19/2019 03:00:00 PM EDT [facility] ([facility]) Name Value Range Interpretation Description Data Sup porting Code Source(s) Document(s ) US .ACCESSION <td [facility] ABDOMINAL NUMBER: ID="Observation-T Felipe ([id number]) [id number] [place] NOTE: [id number] [place] [facility] [id number]">([id number] Nursing INDICATION: R12 ) US ABDOMINAL And Heartburn R12 ([id number])</td><t Rehabili ta Heartburn F50.2 d tion) Bulimia nervosa ID="Observation-V E16.4 Increased [id number] secretion of [id number] gastrinTechniqu [id number]">.ACCESSI e: Real-time ON NUMBER: high-resolution [id number] NOTE: ultrasound AbdCLINICAL evaluation of INDICATION: R12 the upper Heartburn R12 abdomen was Heartburn F50.2 performed.Findi Bulimia nervosa ngs: The spleen E16.4 Increased contains a few secretion of calcified gastrinTechnique: granulomata Real-time with otherwise high-resolution normal uniform ultrasound echotexture. evaluation of the Both kidneys upper abdomen was demonstrate performed.Finding excellent s: The spleen corticomedullar contains a few y calcified differentiation granulomata with . There is no otherwise normal evidence for uniform renal mass, echotexture. Both renal cyst, kidneys shadowing demonstrate calculus, excellent hydronephrosis corticomedullary or abnormal differentiation. perinephric There is no fluid evidence for collection. The renal mass, renal left kidney cyst, shadowing measures 9.4 x calculus, 4.4 x 4.0 cm, hydronephrosis or and the right abnormal kidney measures perinephric fluid 8.1 x 4.6 x 3.2 collection. The cm.The liver left kidney parenchyma is measures 9.4 x normal and 4.4 x 4.0 cm, and uniform without the right kidney hepatic mass, measures 8.1 x cyst or biliary 4.6 x 3.2 cm.The ductal liver parenchyma dilatation. The is normal and gallbladder is uniform without clear without hepatic mass, stones, sludge, cyst or biliary or ductal pericholecystic dilatation. The fluid. The gallbladder is pancreas, aorta clear without and inferior stones, sludge, vena cava were or not well pericholecystic visualized. No fluid. The abnormal fluid pancreas, aorta collections or and inferior vena masses are seen cava were not in the upper well visualized. abdomen.Impress No abnormal fluid ion: No collections or significant masses are seen abnormalities in the upper identified....E abdomen.Impressio lectronically n: No significant SignedGlaser abnormalities Rachael identified....Lilly ctronically SignedGlaser Rachael</td><td ID="Observation-U [id number]"></td><td ID="Observation-R [id number]"></td> <td ID="Observation-A [id number]"></td> <td ID="Observation-S [id number]">Final</ td> Procedure Social History Code Duration Value Status Description Data Source(s ) Smoking 06/01/2019 Denies Ever completed Denies Ever Smoked [facility] 02:04:00 PM EST [facility] Smoking 06/01/2019 Denies Ever completed Denies Ever Smoked [facility] 08:12:00 AM EST [facility] Smoking 06/01/2019 Denies Ever completed Denies Ever Smoked [facility] 08:06:00 AM EST [facility] Smoking 06/01/2019 Denies Ever completed Denies Ever Smoked [facility] 07:57:00 AM EST [facility] Smoking 05/31/2019 Denies Ever completed Denies Ever Smoked [facility] 09:48:00 PM EST [facility] enter Smoking 05/31/2019 Denies Ever completed Denies Ever Smoked [facility] 09:47:00 PM EST [facility] enter Smoking 05/30/2019 Denies Ever completed Denies Ever Smoked [facility] 02:23:00 AM EST [facility] enter Smoking 05/30/2019 Denies Ever completed Denies Ever Smoked [facility] 12:51:00 AM EST [facility] enter Smoking 05/30/2019 Denies Ever completed Denies Ever Smoked [facility] 12:40:00 AM EST [facility] enter Smoking 05/29/2019 Denies Ever completed Denies Ever Smoked [facility] 07:15:00 AM EST [facility] enter Smoking 05/29/2019 Denies Ever completed Denies Ever Smoked [facility] 06:47:00 AM EST [facility] enter Smoking 05/08/2019 Denies Ever completed Denies Ever Smoked [facility] 09:57:00 PM EST [facility] enter Smoking 05/08/2019 Denies Ever completed Denies Ever Smoked [facility] 09:05:00 PM EST [facility] enter Smoking 05/08/2019 Denies Ever completed Denies Ever Smoked [facility] 09:04:00 PM EST [facility] enter Smoking 05/04/2019 Denies Ever completed Denies Ever Smoked [facility] 08:35:00 PM EST [facility] enter Smoking 05/04/2019 Denies Ever completed Denies Ever Smoked [facility] 08:27:00 PM EST Sm[facility] enter Vital Signs ID Date Data Source UNK Name Value Range Interpretation Code Description Data Source(s) Body temperature 36.024269 36.685376 [facility] Respiratory rate 18 /min 18 /min [facility] Oxygen saturation 97 % 97 % [facility] blood [facility] by Pulse oximetry Heart rate 82 /min 82 /min [facility] Diastolic blood 72 mm[Hg] 72 mm[Hg] [facility] Systolic blood 128 mm[Hg] 128 mm[Hg] [facility] Body temperature 37.212563 37.118448 [facility] Respiratory rate 18 /min 18 /min [facility] Oxygen saturation 96 % 96 % [facility] blood [facility] by Pulse oximetry Heart rate 88 /min 88 /min [facility] Diastolic blood 82 mm[Hg] 82 mm[Hg] [facility] Systolic blood 132 mm[Hg] 132 mm[Hg] [facility] Body temperature 37.358039 37.115486 [facility] Respiratory rate 18 /min 18 /min [facility] Oxygen saturation 98 % 98 % [facility] blood [facility] by Pulse oximetry Heart rate 72 /min 72 /min [facility] Diastolic blood 70 mm[Hg] 70 mm[Hg] [facility] Systolic blood 102 mm[Hg] 102 mm[Hg] [facility] Body temperature 37.704187 37.343545 [facility] Respiratory rate 18 /min 18 /min [facility] Oxygen saturation 98 % 98 % [facility] blood [facility] by Pulse oximetry Heart rate 72 /min 72 /min [facility] Diastolic blood 58 mm[Hg] 58 mm[Hg] [facility] [place] Systolic blood 132 mm[Hg] 132 mm[Hg] [facility] Body temperature 37.923045 37.420613 [facility] Respiratory rate 16 /min 16 /min [facility] Oxygen saturation 98 % 98 % [facility] blood [facility] by Pulse oximetry Heart rate 69 /min 69 /min [facility] Diastolic blood 71 mm[Hg] 71 mm[Hg] [facility] Systolic blood 130 mm[Hg] 130 mm[Hg] [facility] Body temperature 36.375397 36.767190 [facility] Respiratory rate 17 /min 17 /min [facility] Oxygen saturation 99 % 99 % [facility] blood [facility] by Pulse oximetry Heart rate 81 /min 81 /min [facility] Diastolic blood 71 mm[Hg] 71 mm[Hg] [facility] Systolic blood 122 mm[Hg] 122 mm[Hg] [facility] Body temperature 36.252606 36.190399 [facility] Respiratory rate 17 /min 17 /min [facility] Oxygen saturation 97 % 97 % [facility] blood [facility] by Pulse oximetry Heart rate 64 /min 64 /min [facility] Diastolic blood 71 mm[Hg] 71 mm[Hg] [facility] Systolic blood 119 mm[Hg] 119 mm[Hg] [facility] Body temperature 36.239058 36.844260 [facility] Respiratory rate 17 /min 17 /min [facility] Oxygen saturation 97 % 97 % [facility] blood [facility] by Pulse oximetry Heart rate 79 /min 79 /min [facility] Diastolic blood 67 mm[Hg] 67 mm[Hg] [facility] Systolic blood 110 mm[Hg] 110 mm[Hg] [facility] Body temperature 36.425931 36.743164 [facility] Respiratory rate 17 /min 17 /min [facility] Oxygen saturation 97 % 97 % [facility] by Pulse oximetry Heart rate 81 /min 81 /min [facility] Diastolic blood 77 mm[Hg] 77 mm[Hg] [facility] [place] Systolic blood 122 mm[Hg] 122 mm[Hg] [facility] Body temperature 37.938883 37.596994 [facility] Respiratory rate 18 /min 18 /min [facility] Oxygen saturation 96 % 96 % [facility] by Pulse oximetry Heart rate 82 /min 82 /min [facility] Diastolic blood 75 mm[Hg] 75 mm[Hg] [facility] [place] Systolic blood 114 mm[Hg] 114 mm[Hg] [facility] Body temperature 36.693026 36.738028 [facility] Respiratory rate 18 /min 18 /min [facility] Oxygen saturation 98 % 98 % [facility] by Pulse oximetry Heart rate 76 /min 76 /min [facility] Diastolic blood 79 mm[Hg] 79 mm[Hg] [facility] Systolic blood 118 mm[Hg] 118 mm[Hg] [facility] Body temperature 37.200534 37.042287 [facility] Respiratory rate 18 /min 18 /min [facility] Oxygen saturation 99 % 99 % [facility] blood [facility] Center by Pulse oximetry Heart rate 74 /min 74 /min [facility] Diastolic blood 71 mm[Hg] 71 mm[Hg] [facility] Systolic blood 116 mm[Hg] 116 mm[Hg] [facility] Body temperature 36.073886 36.482472 [facility] Respiratory rate 18 /min 18 /min [facility] Oxygen saturation 97 % 97 % [facility] blood [facility] Center by Pulse oximetry Heart rate 68 /min 68 /min [facility] Diastolic blood 61 mm[Hg] 61 mm[Hg] [facility] [place] Systolic blood 112 mm[Hg] 112 mm[Hg] [facility] Body weight 44.867187 kg 44.354952 kg [facility] Body temperature 36.338860 36.714916 [facility] Respiratory rate 15 /min 15 /min [facility] Oxygen saturation 97 % 97 % [facility] blood [facility] by Pulse oximetry Heart rate 76 /min 76 /min [facility] Body height 157.423672 157.340581 cm [facility] Diastolic blood 46 mm[Hg] 46 mm[Hg] [facility] pressure [facility] Systolic blood 109 mm[Hg] 109 mm[Hg] [facility] Body mass index 17.9 kg/m2 17.9 kg/m2 [facility] (BMI) [Ratio] [facility] Body temperature 36.923599 36.568704 [facility] Respiratory rate 17 /min 17 /min [facility] Oxygen saturation 99 % 99 % [facility] blood [facility] by Pulse oximetry Heart rate 72 /min 72 /min [facility] Diastolic blood 70 mm[Hg] 70 mm[Hg] [facility] Systolic blood 118 mm[Hg] 118 mm[Hg] [facility] Body temperature 36.332147 36.076979 [facility] Respiratory rate 17 /min 17 /min [facility] Oxygen saturation 99 % 99 % [facility] by Pulse oximetry Heart rate 95 /min 95 /min [facility] Diastolic blood 78 mm[Hg] 78 mm[Hg] [facility] Systolic blood 114 mm[Hg] 114 mm[Hg] [facility]
--- NOTE | 2020-03-26 17:36 | PDOC ---
Attending Attestation - Resident Resident Name: Hernando Bella - ED Attending Attestation I have performed the following: I have examined & evaluated the patient, The case was reviewed & discussed with the resident, I agree w/resident's findings & plan - HPI HPI: 03/26/20 17:35 74-year-old female with history of lower back pain, schizophrenia, constipation, anorexia, bulimia, malnutrition, anemia, insomnia, presenting with nausea/vomiting 03/26/20 17:36 03/26/20 17:48 - Physicial Exam PE: 03/26/20 17:36 Agree with the resident's HPI and PE as documented in the electronic medical record. NAD, frail appearing elderly female, EOMI, PERRL, nl conjunctiva, anicteric; dry mucus membranes, neck supple. lungs clear, RRR, abdomen soft nontender. no rebound, guarding. Back nontender. LUNDY x4, no focal neuro deficits. No peripheral edema. normal color for ethnicity, WWP. 03/26/20 17:48 - Medical Decision Making 03/26/20 17:36 Vital Signs Temp Pulse Resp BP Pulse Ox 98.7 F 72 17 102/62 97 03/26/20 17:02 03/26/20 17:02 03/26/20 17:02 03/26/20 17:02 03/26/20 17:02 Vital signs reviewed within normal limits, normotensive. No respiratory distress. Differential diagnosis includes anemia, electrolyte/metabolic derangements, dehydration, infection, ACS, arrhythmia, PUD, esophagitis, esophageal spasm, GERD/reflux, pancreatitis, hepatitis. renal insufficiency/drea. No abdominal tenderness, no peritoneal findings. Patient is requesting food. Not at this time. As she requires IV hydration, lab work, antiemetics, Pepcid, Maalox and reassess. 03/26/20 18:27 s/o to night team, Dr Miles pending labs, reeval, ultimate dispo Heart Score/ECG Review #1 ECG reviewed & interpreted by me at: 17:50 General ECG Interpretation: Sinus Rhythm, Normal Rate, Normal Intervals 03/26/20 18:13 EKG normal sinus rhythm 73 bpm, no interval abnormalities, narrow QRS, ST and T wave segments and morphology normal. Discharge - Discharge Information Problems reviewed: Yes Clinical Impression/Diagnosis: Failure to thrive Vomiting Qualifiers: Vomiting type: unspecified Vomiting Intractability: unspecified Nausea presence: with nausea Qualified Code(s): R11.2 - Nausea with vomiting, unspecified Condition: Stable - Follow up/Referral - Patient Discharge Instructions - Post Discharge Activity
[2020-03-26] MEDS ORDERED: MAG HYDROX/AL HYDROX/SIMETH 30 ML UNIT-DOSE CUP PO ONE (17:44)
[2020-03-26] MEDS ORDERED: FAMOTIDINE 20 MG/50 ML IVPB 20 MG/50 ML MG IVPB ONE ×2 (17:44→17:59)
[2020-03-26] MEDS ORDERED: SODIUM CHLORIDE 0.9% 500 ML INFUS.BAG IV ONE (17:47)
[2020-03-26] MEDS ORDERED: METOCLOPRAMIDE HCL INJECTION 10 MG/2 ML VIAL IVPUSH ONE (17:48)
[2020-03-26] MEDS ORDERED: MAG HYDROX/AL HYDROX/SIMETH 30 ML UNIT-DOSE CUP ONE (17:59)
[2020-03-26] MEDS ORDERED: METOCLOPRAMIDE HCL INJECTION 10 MG/2 ML VIAL ONE (17:59)
[2020-03-26 18:18] LABS: BASO % 1.4 % (0-2.0); EOS % 2.4 % (0-4.5); HEMATOCRIT 30.5 % (32.4-45.2); HEMOGLOBIN 9.9 GM/dL (10.7-15.3); LYMPH % 40.6 % (8-40); MCHC 32.6 g/dl (32.0-36.0); MEAN CELL VOLUME 91.9 fl (80-96); MEAN PLT VOLUME 7.9 fl (7.5-11.1); MONO % 10.5 % (3.8-10.2); NEUT % 45.1 % (42.8-82.8); PLATELET COUNT 272 K/MM3 (134-434); RBC 3.32 M/mm3 (3.60-5.2); WHITE BLOOD COUNT 5.6 K/mm3 (4.0-10.0)
[2020-03-26] MEDS ORDERED: ONDANSETRON 4 MG/2 ML VIAL IVPUSH ONE (18:27)
[2020-03-26 18:46] LABS: ALK PHOS 47 U/L (45-117); ANION GAP 3 MMOL/L (8-16); BILIRUBIN,TOTAL 0.4 mg/dL (0.2-1); BLOOD UREA NITROGEN 22.9 mg/dL (7-18); CALCIUM 8.7 mg/dL (8.5-10.1); CHLORIDE 103 mmol/L (98-107); CO2 31 mmol/L (21-32); CREATININE 0.5 mg/dL (0.55-1.3); GLUCOSE,RANDOM 86 mg/dL (74-106); LIPASE 264 U/L (73-393); POTASSIUM 5.6 mmol/L (3.5-5.1); SGOT/AST 35 U/L (15-37); SGPT/ALT 15 U/L (13-61); SODIUM 137 mmol/L (136-145); TOT PROT 6.1 g/dl (6.4-8.2)
--- OUTSIDE RECORDS SUMMARY | 2020-03-26 23:17 | XMS ---
:1945 [facility] Providers Name Role Phone Ernesto Friedman Unavailable Unavailable SabRobbie griffithan Unavailable Unavailable SabRobbie griffithan Unavailable Unavailable SabRobbie griffithan Unavailable Unavailable ED STAFF PHYSICIANRUDI Unavailable Unavailable NARDA Blount Unavailable Unavailable ED STAFF PHYSICIAN Unavailable Unavailable ED STAFF PHYSICIAN, STAFF Unavailable Unavailable [facility] Unavailable Unavailable Luna Granda MD Unavailable Unavailable [...] is protected by Article 27-F of the [place] Public [employer] law. If you continue you may haveaccess to information: Regarding HIV / AIDS; Provided by facilities licensed or operated by the [place] Office of Mental Health; or Provided by the [facility] Office for People With Developmental Disabilities. If such information is present, then the following [place] mandated warning applies: This information has been [...] law may result in a fine or longterm sentence or both. A general authorization for the release of medical or other information is NOT sufficient authorization for further disclosure. Encounters Encounter Providers Location Date Indications Data Source(s ) Outpatient Attender: [id number] 07/31/2019 I ([facility] 01:13[facility] EST Patient admitted. Emergency Attender: ED STAFF H 06/01/2019 07:46:00 AM [facility] PHYSICIANAttender: STAFF ED EST - 06/01/2019 [facility] STAFF PHYSICIANAdmitter: ED 04:37:00 PM EST STAFF PHYSICIAN Patient discharged. Emergency Attender: STAFF ED STAFF H 05/31/2019 09:43:00 PM [facility] PHYSICIAN EST - 06/01/2019 08:43:00 Center AM EST Patient discharged. Emergency Attender: STAFF ED STAFF H 05/30/2019 12:32:00 AM [facility] PHYSICIAN EST - 05/30/2019 08:55:00 Center AM EST Patient discharged. Emergency Attender: RUDI ED STAFF H 05/29/2019 06:43:00 AM [facility] PHYSICIANAttender: STAFF ED EST - 05/29/2019 Medical Center STAFF PHYSICIANAdmitter: 02:28:00 PM EST RUDI ED STAFF PHYSICIAN Patient discharged. Emergency Attender: STAFF ED STAFF H 05/08/2019 08:59:00 PM [facility] Medical PHYSICIAN EST - 05/09/2019 04:26:00 Center AM EST Patient discharged. Emergency Attender: NARDA Diallo 05/04/2019 08:10:00 PM [facility] Erika: STAFF ED STAFF EST - 05/05/2019 [facility] PHYSICIANAdmitter: NARDA 08:59:00 AM EST MARIA FERNANDA Blount Patient discharged. Inpatient Attender: Hirendra Unit 4-Unit 6 06/24/2018 CANDI GAMBLE ([facility] [place] Jesus Alberto MDAttender: 12:00:00 PM EST - C enter for Nursing And Ernesto Friedman 05/05/2019 Rehabilit ation) 10:27:00 AM EST Patient discharged. Medications Medication Brand Start Product Dose Route Administrative Pharmacy at Indications Reaction Description Data Name Date Form Instructions Instructions Source(s) Haldol 346757 complet Haldol SIGM ACARE Decanoate 88884 2019 ed Decanoate 50 ( Alex (haloperido 06:25: mg/mL Park l 48 AM intramuscula Center for decanoate) EST r solution Lashawn sing 50 mg/mL And intramuscul Rehabili ta ar solution tion) mirtazapine Mirtaz mirtaz apine SIG[facility] 7.5 mg apine 2018 ed 7.5 mg (Alxe tablet 7.5 MG 05:40: tablet Park Oral 17 AM Center for Tablet EST Nursing And Rehabilita tion) Remeron Mirtaz 04/25/ complet Remeron 30 SIG[facility]ARE (mirtazapin apine 2019 ed mg tablet (S utton e) 30 mg 30 MG 05:37: Park tablet Oral 12 AM Center for Tablet EST Nursing [[place] And on] Rehabilita tion) haloperidol Halope complet halope ridol SIGMACARE 2 mg/mL ridol 2019 ed 2 mg/mL oral (Pastor tton oral 2 05:33: concentrate Park concentrate MG/ML 09 AM Center for Oral EST Nursing [place] And on Rehabilita tion) Remeron Mirtaz 03/04/ complet Remeron 30 SIGMACARE (mirtazapin apine 2019 ed mg tablet (S utton e) 30 mg 30 MG 12:46: Belén tablet Oral 08 PM Center for Tablet EDT Nursing [[place] [facility] on] Rehabilita tion) haloperidol Halope halope ridol SIGMACARE 2 mg/mL ridol 2019 ed 2 mg/mL oral (Pastor tton oral 2 10:36: concentrate Park concentrate MG/ML 05 AM Center for Oral EDT Nursing Soluti And on Rehabilita tion) Mylanta 355850 Mylanta 20 0 SIGMACARE (alum-mag 50822 2018 ed mg-200 mg-20 ( Alex hydroxide-s 02:51: mg/5 mL ora l Belén imeth) 200 02 AM suspension Ce nter for mg-200 EDT Nursing mg-20 mg/5 And mL oral Rehabilita suspension tion) Insurance Providers Payer name Policy type Policy ID Covered Covered democrat's Policy P rosa / Coverage democrat ID relationship to Ma Inf ormation type ma MEDICAID [id number] SP [id number] MEDICARE [id number] SP [id number] M [id number] 01 [id number] W [id number] 01 [id number] Medicare Part Medicare [id number] Self [id number] B Part B Medicaid Medicaid [id number] Self [id number] MEDIBLUE OP O 01 Medicare Part 2 [id number] Self [id number] B Medicaid 3 [id number] Self [id number] Medicare Part Medicare [id number] Self [id number] A Part A Medicare Part Medicare [id number] Self [id number] B Part B Medicaid Medicaid [id number] Self [id number] Medicare Part Medicare [id number] 1 [id number] A Medicaid Medicaid [id number] 1 [id number] Medicare Part Medicare [id number] 1 [id number] B Outpatient Problems, Conditions, and Diagnoses Code Display Name Description Problem Type Effective Data Dates Source(s) Z00.00 Encounter for ENCNTR FOR GENERAL Diagnosis 06/01/2019 [facility] general adult ADULT MEDICAL EXAM 07:46:00 AM Me dical medical examination W/O ABNORMAL EST Gary ter without abnormal FINDINGS findings D64.9 Anemia, unspecified ANEMIA, UNSPECIFIED Diagnosis 019 [facility] 09:43:00 PM Medical EST Center M79.605 Pain in left leg PAIN IN LEFT LEG Diagnosis 05/31/2019 [facility] 09:43:00 PM Medical EST Center M79.604 Pain in right leg PAIN IN RIGHT LEG Diagnosis 05/31/2019 [facility] 09:43:00 PM Medical EST Center R11.2 Nausea with NAUSEA WITH Diagnosis 05/31/2019 [facility] vomiting, VOMITING, 09:43:00 PM Medical unspecified UNSPECIFIED EST Center R11.10 Vomiting, VOMITING, Diagnosis 05/31/2019 [facility] unspecified UNSPECIFIED 09:43:00 PM Medical EST Center M54.9 Dorsalgia, DORSALGIA, Diagnosis 05/30/2019 [facility] unspecified UNSPECIFIED 12:32:00 AM Medical EST Center E87.6 Hypokalemia HYPOKALEMIA Diagnosis 05/29/2019 [facility] 06:43:00 AM Medical EST Center M79.18 MYALGIA, OTHER SITE MYALGIA, OTHER SITE Diagnosis [facility] 06:43:00 AM Medical EST Center M53.3 [...] Conduct disorder, CONDUCT DISORDER, Diagnosis 05/04/2019 [facility] unspecified UNSPECIFIED 08:10:00 PM Medical EST Center R05 Cough Cough Diagnosis 04/24/2019 [facility] 12:00:00 AM (Isai Melissa [facility] Nursing And Rehabil[facility]atio n) Z23 Encounter for Encounter for Diagnosis 04/19/2019 SIGMACAR E immunization immunization 12:00:00 AM (Isai natarajan [facility] Nursing [facility] n) F32.0 Major depressive Major depressive Diagnosis 03/04/2019 SI GMACARE disorder, single disorder, single 12:00:00 AM ( [place] episode, mild episode, mild EDT Center f or Nursing And Rehabilitatio n) R12 Heartburn Heartburn Diagnosis 02/20/2019 [facility] 12:00:00 AM (Isai Melissa EDT [place] for Nursing And Rehabilitatio n) Results ID Date Data Source [id number] 12/18/2019 12:00:00 AM EDT [facility] Name Value Range Interpretation Code Description Data Marichuy rce(s) Supporting Document(s ) 2018-nCoV [facility] RNA XXX GARY+probe- Imp This lab was ordered by [employer] and reported by [employer] ID Date Data Source [id number] 12/06/2019 12:00:00 AM EDT [facility] Name Value Range Interpretation Code Description Data Marichuy rce(s) Supporting Document(s ) 2018-nCoV [facility] RNA XXX GARY+probe- Imp This lab was ordered by [employer] and reported by [employer] ID Date Data Source [id number] 12/01/2019 12:00:00 AM EDT [facility] Name Value Range Interpretation Code Description Data Marichuy rce(s) Supporting Document(s ) 2018-nCoV [facility] RNA XXX GARY+probe- Imp This lab was ordered by [employer] and reported by [employer] ID Date Data Source [id number] 11/16/2019 12:00:00 AM EDT [facility] Name Value Range Interpretation Code Description Data Marichuy rce(s) Supporting Document(s ) 2018-nCoV [facility] RNA XXX GARY+probe- Imp This lab was ordered by [employer] and reported by [employer] ID Date Data Source [id number] 10/30/2019 12:00:00 AM EDT [facility] Name Value Range Interpretation Code Description Data Marichuy rce(s) Supporting Document(s ) 2018-nCoV [facility] RNA XXX GARY+probe- Imp This lab was ordered by [employer] and reported by [employer] ID Date Data Source [id number] 10/26/2019 12:00:00 PM EDT [facility] Name Value Range Interpretation Description Data Sup porting Code Source(s) Document(s ) SARS CoV-2 [facility] Interpretation This lab was ordered by [facility] and reported by [employer] [facility]. ID Date Data Source [id number] 10/03/2019 12:00:00 PM EDT [facility] Name Value Range Interpretation Description Data Sup porting Code Source(s) Document(s ) SARS CoV-2 [facility] Interpretation This lab was ordered by [facility] and reported by [employer] [facility]. ID Date Data Source [id number] 05/29/2019 08:30:00 AM EST Krish [facility] 0 Name Value Range Interpretation Description Data Sup porting Code Source(s) Document(s ) Glucose NEGATIVE <content Saint [Mass/volume] styleCode="[facility] in Urine by d">Urine Medical Test strip Glucose Center </content>NEGA TIVE MG/DL<content styleCode="Tess lics"> (NEGATIVE MG/DL)</conten t> Color of Urine YELLOW <content Saint styleCode="[facility] d">Color, Medical Urine Center </content>YELL OW <content styleCode="Tess lics"> (YELLOW )</content> UNK CLEAR <content Saint styleCode="[facility] d">Urine Medical Clarity Center </content>LEOLA R <content styleCode="Tess lics"> (CLEAR )</content> UNK NEGATIVE <content Saint styleCode="[facility] d">Urine Medical Bilirubin Center </content>NEGA TIVE <content styleCode="Tess lics"> (NEGATIVE )</content> Ketones NEGATIVE <content Saint [Mass/volume] styleCode="[facility] [place] in Urine by d">Urine Medical Test strip Ketone Center </content>NEGA TIVE MG/DL<content styleCode="Tess lics"> (NEGATIVE MG/DL)</conten t> Hemoglobin NEGATIVE <content Saint [Presence] in styleCode="[facility]ée [place] Urine by Test d">Urine Blood Medical strip </content>NEGA Center TIVE <content styleCode="Tess lics"> (NEGATIVE )</content> Specific 1.015-1.02 Below low normal <content Saint gravity of 5 styleCode="[facility]ée [place] Urine by Test d">Urine Medical strip Specific Center [place] </content><= 1.005 L<content styleCode="Tess lics"> (1.015-1.025 )</content> pH of Urine by 4.5-8.0 <content Saint Test strip styleCode="Renée [facility] d">Urine pH Medical </content>6.0 Center <content styleCode="Tess lics"> (4.5-8.0 )</content> Protein NEGATIVE <content Saint [Mass/volume] styleCode="[facility] [place] in Urine by d">Urine Medical Test strip Protein Center </content>NEGA TIVE MG/DL<content styleCode="Tess lics"> (NEGATIVE MG/DL)</conten t> Urobilinogen 0.2-1.0 <content Saint [Units/volume] styleCode="[facility] [place] in Urine by d">Urine Medical Test strip Urobilinogen Center </content>0.2 MG/DL<content styleCode="Tess lics"> (0.2-1.0 MG/DL)</conten t> Leukocyte NEGATIVE <content Saint esterase styleCode="[facility]ée [facility] [Presence] in d">Urine Medical Urine by Test Leukocyte Center strip </content>NEGA TIVE <content styleCode="Tess lics"> (NEGATIVE )</content> Nitrite NEGATIVE <content Saint [Presence] in styleCode="[facility] Urine by Test d">Urine Medical strip Nitrite Center </content>NEGA TIVE <content styleCode="Tess lics"> (NEGATIVE )</content> ID Date Data Source [id number].[id number] 05/29/2019 07:57:00 AM EST Krish [facility] 0500 Name Value Range Interpretation Description Data [...] 1 %)</content> UNK 0.0-0.3 <content Saint styleCode="Bold [facility] ">Basophil Medical Count Center </content>0.06 KCUMM<content styleCode="Ital ics"> (0.0-0.3 KCUMM)</content > ID Date Data Source GFR(Creatinine).[id number] 05/29/2019 07:57:00 AM RENARD [facility] 0-0500 Name Value Range Interpretation Code Description Data Marichuy rce(s) Supporting Document(s ) UNK > 60 <content [facility] styleCode="Bold"> Medical Cent er EGFR </content>129 GFR<content styleCode="Italic s"> (> 60 GFR)</content> ID Date Data Source [id number] 05/29/2019 07:57:00 AM EST [facility] Name Value Range Interpretation Description Data Sup [...] (> 60 GFR)</content> ID Date Data Source [id number] 04/23/2019 02:00:00 PM EST [facility] ([facility]) Name Value Range Interpretation Description Data Sup porting Code Source(s) Document(s ) XR .ACCESSION <td [facility] CHEST NUMBER: ID="Observation-T (Alex AP 1 [id number] NOTE: [id number] Park VIEW CHEST 1 [id number] Center for (STAT00 ViewCLINICAL [id number]">([id number] Nursing 44) INDICATION: R05 ) XR CHEST AP 1 And Cough R05 VIEW Rehabilita Cough.Findings: ([id number])</td><t tion) Age-related d changes are ID="Observation-V present in the [id number] bony thorax. Soft [id number] tissues are [id number]">.ACCESSI unremarkable. ON NUMBER: Heart size is [id number] NOTE: within the upper CHEST 1 limits [...] Age-related findings only....Electroni annemarie SignedGlaser Rachael</td><td ID="Observation-U [id number]"></td><td ID="Observation-R [id number]"></td> <td ID="Observation-A [id number]"></td> <td ID="Observation-S [id number]">Final</ td> ID Date Data Source [id number] 02/19/2019 03:00:00 PM EDT [facility] ([facility]) Name Value Range Interpretation Description Data Sup porting Code Source(s) Document(s ) US .ACCESSION <td [facility] ABDOMINAL NUMBER: ID="Observation-T Felipe ([id number]) [id number] Belén NOTE: -[id number] [place] [facility]">([id number] Nursing INDICATION: R12 ) US ABDOMINAL And Heartburn R12 ([id number])</td><t Rehabili ta Heartburn F50.2 d tion) Bulimia nervosa ID="Observation-V E16.4 Increased [id number] secretion of [id number]-[id number] gastrinTechniqu [id number]">.ACCESSI e: Real-time ON NUMBER: high-resolution [id number] NOTE: ultrasound AbdCLINICAL evaluation of INDICATION: R12 [...] abnormalities Rachael identified....Lilly ctronically SignedGlaser Rachael</td><td ID="Observation-U [id number]"></td><td ID="Observation-R [id number]"></td> <td ID="Observation-A [id number]"></td> <td ID="Observation-S [id number]">Final</ td> Procedure Social History Code Duration Value [...] Ever completed Denies Ever Smoked [facility] 08:35:00 PM EST Smoked Medical C enter Smoking 05/04/2019 Denies Ever completed Denies Ever Smoked [facility] 08:27:00 PM EST Smoked Medical C enter Vital Signs ID Date Data Source UNK Name Value Range Interpretation Code Description Data Source(s) Body temperature 36.617260 36.067474 [facility] Respiratory rate 18 /min 18 /min [facility] Oxygen saturation 97 % 97 % [facility] by Pulse oximetry Heart rate 82 /min 82 /min [facility] Diastolic blood 72 mm[Hg] 72 mm[Hg] Health system Systolic blood 128 mm[Hg] 128 mm[Hg] [facility] Body temperature 37.293978 37.270126 [facility] Respiratory rate 18 /min 18 /min [facility] Oxygen saturation 96 % 96 % [facility] by Pulse oximetry Heart rate 88 /min 88 /min [facility] Diastolic blood 82 mm[Hg] 82 mm[Hg] Health system Systolic blood 132 mm[Hg] 132 mm[Hg] [facility] Body temperature 37.375280 37.891576 [facility] Respiratory rate 18 /min 18 /min [facility] Oxygen saturation 98 % 98 % [facility] by Pulse oximetry Heart rate 72 /min 72 /min [facility] Diastolic blood 70 mm[Hg] 70 mm[Hg] Health system Systolic blood 102 mm[Hg] 102 mm[Hg] [facility] Body temperature 37.260019 37.618919 [facility] Respiratory rate 18 /min 18 /min [facility] Oxygen saturation 98 % 98 % [facility] blood [facility] by Pulse oximetry Heart rate 72 /min 72 /min [facility] Diastolic blood 58 mm[Hg] 58 mm[Hg] [facility] pressure Medical [place] Systolic blood 132 mm[Hg] 132 mm[Hg] [facility] Body temperature 37.320526 37.764641 [facility] Respiratory rate 16 /min 16 /min [facility] Oxygen saturation 98 % 98 % [facility] Arterial blood [facility] by Pulse oximetry Heart rate 69 /min 69 /min [facility] Diastolic blood 71 mm[Hg] 71 mm[Hg] Health system Systolic blood 130 mm[Hg] 130 mm[Hg] [facility] Body temperature 36.379384 36.909605 [facility] Respiratory rate 17 /min 17 /min [facility] Oxygen saturation 99 % 99 % [facility] blood [facility] by Pulse oximetry Heart rate 81 /min 81 /min [facility] Diastolic blood 71 mm[Hg] 71 mm[Hg] Health system Systolic blood 122 mm[Hg] 122 mm[Hg] [facility] Body temperature 36.545611 36.328325 [facility] Respiratory rate 17 /min 17 /min [facility] Oxygen saturation 97 % 97 % [facility] blood [facility] by Pulse oximetry Heart rate 64 /min 64 /min [facility] Diastolic blood 71 mm[Hg] 71 mm[Hg] Health system Systolic blood 119 mm[Hg] 119 mm[Hg] [facility] Body temperature 36.694196 36.390020 [facility] Respiratory rate 17 /min 17 /min [facility] Oxygen saturation 97 % 97 % [facility] blood [facility] by Pulse oximetry Heart rate 79 /min 79 /min [facility] Diastolic blood 67 mm[Hg] 67 mm[Hg] Health system Systolic blood 110 mm[Hg] 110 mm[Hg] [facility] Body temperature 36.964475 36.590079 [facility] Respiratory rate 17 /min 17 /min [facility] Oxygen saturation 97 % 97 % [facility] Arter[facility] blood Medical Center by Pulse oximetry Heart rate 81 /min 81 /min [facility] Diastolic blood 77 mm[Hg] 77 mm[Hg] [facility] Medical [place] Systolic blood 122 mm[Hg] 122 mm[Hg] [facility] Body temperature 37.010884 37.048040 [facility] Respiratory rate 18 /min 18 /min [facility] Oxygen saturation 96 % 96 % [facility] Arter[facility] blood Medical Center by Pulse oximetry Heart rate 82 /min 82 /min [facility] Diastolic blood 75 mm[Hg] 75 mm[Hg] [facility] Medical [place] Systolic blood 114 mm[Hg] 114 mm[Hg] [facility] Body temperature 36.545108 36.313222 [facility] Respiratory rate 18 /min 18 /min [facility] Oxygen saturation 98 % 98 % [facility] Arterial blood Medical Center by Pulse oximetry Heart rate 76 /min 76 /min [facility] Diastolic blood 79 mm[Hg] 79 mm[Hg] Health system Systolic blood 118 mm[Hg] 118 mm[Hg] [facility] Body temperature 37.323225 37.024251 [facility] Respiratory rate 18 /min 18 /min [facility] Oxygen saturation 99 % 99 % [facility] blood [facility] by Pulse oximetry Heart rate 74 /min 74 /min [facility] Diastolic blood 71 mm[Hg] 71 mm[Hg] Health system Systolic blood 116 mm[Hg] 116 mm[Hg] [facility] Body temperature 36.454890 36.521896 [facility] Respiratory rate 18 /min 18 /min [facility] Oxygen saturation 97 % 97 % [facility] Arterial blood [facility] by Pulse oximetry Heart rate 68 /min 68 /min [facility] Diastolic blood 61 mm[Hg] 61 mm[Hg] [facility] Center Systolic blood 112 mm[Hg] 112 mm[Hg] [facility] Body weight 44.842561 kg 44.502495 kg [facility] Body temperature 36.535837 36.841933 [facility] Respiratory rate 15 /min 15 /min [facility] Oxygen saturation 97 % 97 % [facility] blood [facility] by Pulse oximetry Heart rate 76 /min 76 /min [facility] Body height 157.100259 157.939280 cm [facility] Diastolic blood 46 mm[Hg] 46 mm[Hg] [facility] pressure [facility] Systolic blood 109 mm[Hg] 109 mm[Hg] [facility] Body mass index 17.9 kg/m2 17.9 kg/m2 [facility] (BMI) [Ratio] Medical [facility] Body temperature 36.767337 36.040164 [facility] Respiratory rate 17 /min 17 /min [facility] Oxygen saturation 99 % 99 % [facility] by Pulse oximetry Heart rate 72 /min 72 /min [facility] Diastolic blood 70 mm[Hg] 70 mm[Hg] Health system Systolic blood 118 mm[Hg] 118 mm[Hg] [facility] Body temperature 36.935905 36.777642 [facility] Respiratory rate 17 /min 17 /min [facility] Oxygen saturation 99 % 99 % [facility] by Pulse oximetry Heart rate 95 /min 95 /min [facility] Diastolic blood 78 mm[Hg] 78 mm[Hg] Health system Systolic blood 114 mm[Hg] 114 mm[Hg] [facility]
--- NOTE | 2020-03-26 23:19 | PN ---
Teaching Attending Note Name of Resident: Israel Hart ATTENDING PHYSICIAN STATEMENT I saw and evaluated the patient. I reviewed the resident's note and discussed the case with the resident. I agree with the resident's findings and plan as documented. SUBJECTIVE: Patient is a 74 year old woman with PMH of Malnutrition, Anemia, Dementia, Depression, Schizophrenia, Anorexia, Bulimia, Constipation and Sacral fracture presenting to ER from [facility] for nausea, vomiting and poor appetite. Staff at [facility] report she usually has nausea and white emesis everyday, but today patient had increased emesis. [facility] was unable to say if patient had bloody or bilious emesis (emesis in ER was not bloody or bilious). Patient reports she has been having the symptoms for two years and may be worse today. Does have increased weakness fro which she is admitted to [facility] for rehabilitation. Patient denies chest pain, shortness of breath, abdominal pain, headache, palpitations, dizziness, fever, chills, diarrhea, constipation, dysuria, frequency, urgency, melena, hematochezia or hematuria. Denies alcohol, tobacco or illicit drug use. No sick contacts or recent travels. Family history is unremarkable. OBJECTIVE: Alert and cachectic Vital Signs Period Temp Pulse Resp BP Sys/Ryan Pulse Ox Last 24 Hr 98.7 F 72 17 102/62 97 HEENT: No Jaundice, eye redness or discharge, PERRLA, EOMI. Normocephalic, atraumatic. External ears are normal and hearing is grossly intact. No nasal discharge. Neck: Supple, nontender. No palpable adenopathy or thyromegaly. No JVD Chest: Good effort. Clear to auscultation and percussion. Heart: Regular. No S3, rub or murmur Abdomen: Not distended, soft, nontender and no HSM. No rebound or guarding. Normal bowel sounds. Ext: Peripheral pulses intact. No leg edema. Skin: Warm and dry. No petechiae, rash or ecchymosis. Neuro: Alert. Oriented x3. CN 2-12 grossly intact. Sensation grossly intact in all four extremities and DTR are symmetric. Psych: Appropriate mood and affect. Good insight. Home Medications Medication Instructions Recorded Methyl Salicylate/Menthol Oint 1 applic TP DAILY 30 Days applic 06/06/19 [Analgesic [place] -] Acetaminophen [Tylenol -] 650 mg PO Q6H #100 tablet 06/11/19 Calcium 500Mg/Vit-D 200 Units 2 tab PO DAILY tab 06/11/19 [Os-Manuel 500+D -] Docusate Sodium [Colace -] 100 mg PO DAILY #0 capsule 06/11/19 Megestrol Acetate Oral Susp 400 mg PO DAILY cup 06/11/19 [Megace Oral Suspension -] Oxybutynin Chloride 5 mg PO DAILY #30 tablet 06/11/19 Pantoprazole Sodium [Protonix -] 20 mg PO DAILY #30 tablet.ec 06/11/19 Polyethylene Glycol 3350 [Miralax 17 gm PO DAILY bottle 06/11/19 119 gm Btl -] Sennosides [Senna -] 1 tab PO HS tablet 06/11/19 Venlafaxine HCl ER [Effexor Xr -] 37.5 mg PO DAILY cap.er.24h 06/11/19 Abnormal Lab Results 03/26/20 03/26/20 17:44 17:44 RBC 3.32 L Hgb 9.9 L Hct 30.5 L RDW 16.0 H Lymphocytes % 40.6 H D Monocytes % 10.5 H Potassium 5.6 H Anion Gap 3 L BUN 22.9 H Creatinine 0.5 L Total Protein 6.1 L Albumin 3.0 L Current Medications Generic Name Dose Route Start Last Admin Trade Name Freq PRN Reason Stop Dose Admin Acetaminophen 650 mg 03/26/20 23:00 Tylenol - PO Q6H [facility] Heparin Sodium (Porcine) 5,000 unit 03/27/20 10:00 Heparin - SQ BID [facility] Dextrose/Sodium Chloride 1,000 mls @ 75 mls/hr 03/26/20 23:00 D5-1/2ns - IV ASDIR [facility] Megestrol Acetate 400 mg 03/27/20 10:00 Megace Oral Suspension - PO DAILY [facility] Metoclopramide HCl 5 mg 03/27/20 06:00 Reglan Injection - IVPUSH Q6H PRN NAUSEA AND/OR VOMITING Pantoprazole Sodium 40 mg 03/27/20 10:00 Protonix Iv IVPUSH DAILY [facility] Polyethylene Glycol 17 gm 03/27/20 10:00 Miralax (For Daily Use) - PO DAILY [facility] ASSESSMENT AND PLAN: 1. Failure to thrive/Severe malnutrition - Etiology of nausea and vomiting is unclear. No acute abnormality on CXR but shows hilar prominence and unfolded aorta. EKG shows NSR at 73/minute, LAE and QTc 434 with no significant acute ischemic ST-T wave changes. Initial troponin is negative. Will get barium swallow with follow through, CT abdomen/pelvis, urinalysis, consult Mortgage Loan Officer and GI. Provide high calorie/high protein nutritional supplements once vomiting stops. Continue IV Protonix, Reglan, Megace and D5/0.45% NaCl as Miralax. Give saline enema if Miralax fails. Will continue comprehensive care for all of patients comorbid conditions. 2. Anemia Likely partly due to malnutrition. Iron saturation was 6% on 06/02/2019. Will do serial stool guaiacs, repeat iron studies and treat with IV Venofer if iron saturation is still low. 3. Hypoalbuminemia - Possibly due to combined effects of malnutrition and inflammation associated with comorbid conditions. Will ensure adequate dietary protein intake and also consult cutter finisher. Urinalysis pending. 4. DVT prophylaxis - Lovenox 30 mg SQ q 24 hours. 5. Advance directives - Full code
[2020-03-26] MEDS: ACETAMINOPHEN 325 MG TABLET (FP) PO SCH (23:46)
--- NOTE | 2020-03-27 00:08 | HP ---
CHIEF COMPLAINT: increased emesis PCP: Dr. Espana HISTORY OF PRESENT ILLNESS: Patient is a 74 year old woman with PMH of Malnutrition, Anemia, Depression, Schizophrenia, Anorexia, and Sacral fracture brought in from [facility] when the nursing staff noted that the patient had been vomiting more than usual. Staff at [facility] report she usually note that the patient has nausea and clear emesis everyday, but today was increasingly so. The patient is a poor historian and is able to provide limited detail. The patient endorses multiple episodes of emisis of undigested food without blood or bile. Patient denies chest pain, shortness of breath, abdominal pain, headache, palpitations, dizziness, fever, chills, diarrhea, constipation, dysuria, frequency, urgency, melena, hematochezia or hematuria. Denies alcohol, tobacco or illicit drug use. Family history is unremarkable. ER course was notable for: (1) 1 to 1 due to patient tendency to get up and leave Recent Travel: denies PAST MEDICAL HISTORY: as above PAST SURGICAL HISTORY: tonsil removal many years ago Allergies No Known Allergies Allergy (Verified 03/26/20 17:05) HOME MEDICATIONS: Home Medications Medication Instructions Recorded Methyl Salicylate/Menthol Oint 1 applic TP DAILY 30 Days applic 06/06/19 [Analgesic [place] -] Acetaminophen [Tylenol -] 650 mg PO Q6H #100 tablet 06/11/19 Calcium 500Mg/Vit-D 200 Units 2 tab PO DAILY tab 06/11/19 [Os-Manuel 500+D -] Docusate Sodium [Colace -] 100 mg PO DAILY #0 capsule 06/11/19 Megestrol Acetate Oral Susp 400 mg PO DAILY cup 06/11/19 [Megace Oral Suspension -] Oxybutynin Chloride 5 mg PO DAILY #30 tablet 06/11/19 Pantoprazole Sodium [Protonix -] 20 mg PO DAILY #30 tablet.ec 06/11/19 Polyethylene Glycol 3350 [Miralax 17 gm PO DAILY bottle 06/11/19 119 gm Btl -] Sennosides [Senna -] 1 tab PO HS tablet 06/11/19 Venlafaxine HCl ER [Effexor Xr -] 37.5 mg PO DAILY cap.er.24h 06/11/19 REVIEW OF SYSTEMS see above PHYSICAL EXAMINATION Vital Signs - 24 hr 03/26/20 03/26/20 17:02 19:55 Temperature 98.7 F 98.7 F Pulse Rate 72 Pulse Rate [ 100 H Radial] Respiratory 17 18 Rate Blood Pressure 102/62 Blood Pressure 121/79 [Left Arm] O2 Sat by Pulse 97 98 Oximetry (%) GENERAL: Awake, alert, and fully oriented, in no acute distress. HEAD: Normal with no signs of trauma. LUNGS: Breath sounds equal, clear to auscultation bilaterally. No wheezes, and no crackles. No accessory muscle use. HEART: Regular rate and rhythm, normal S1 and S2 without murmur, rub or gallop. ABDOMEN: Soft, nontender, not distended, normoactive bowel sounds, no guarding, no rebound, no masses. No hepatomegaly or splenomegaly. LOWER EXTREMITIES: 2+ pulses, warm, well-perfused. No calf tenderness. No peripheral edema. PSYCHIATRIC: demented, poor history telling Laboratory Results - last 24 hr 03/26/20 03/26/20 17:44 17:44 WBC 5.6 RBC 3.32 L Hgb 9.9 L Hct 30.5 L MCV 91.9 MCH 30.0 MCHC 32.6 RDW 16.0 H Plt Count 272 D MPV 7.9 Absolute Neuts (auto) 2.5 Neutrophils % 45.1 D Lymphocytes % 40.6 H D Monocytes % 10.5 H Eosinophils % 2.4 D Basophils % 1.4 D Nucleated RBC % 0 Sodium 137 Potassium 5.6 H Chloride 103 Carbon Dioxide 31 Anion Gap 3 L BUN 22.9 H Creatinine 0.5 L Est GFR (CKD-EPI)AfAm 111.28 Est GFR (CKD-EPI)NonAf 96.02 Random Glucose 86 Calcium 8.7 Total Bilirubin 0.4 AST 35 ALT 15 Alkaline Phosphatase 47 Creatine Kinase 147 Troponin I < 0.02 Total Protein 6.1 L Albumin 3.0 L Lipase 264 ASSESSMENT/PLAN: Patient is a 74 year old woman with PMH of Malnutrition, Anemia, Depression, Schizophrenia, Anorexia, and Sacral fracture brought in from [facility] when the nursing staff noted that the patient had been vomiting more than usual. #Failure to thrive/Severe malnutrition - patient endorses a history of bulimia and anorexia - consult funeral car chauffeur - consult speech and swallow - Vita diet as to not enduce refeeding syndrome - very rapid increase in daily food intake in severely malnourished patients can cause massive insulin release - increased displacement of magnesium, potassium, and phosphate (shift from extracellular to intracellular) - decreased phosphate, decreased potassium, decreased magnesium - R/o bulemia - patients with bulemia have normal to slightly elevated BMI #Anemia Likely partly due to malnutrition. - iron studies and possibly treat with IV Venofer if iron saturation is still low #Hypoalbuminemia - Possibly due to combined effects of malnutrition and inflammation associated with comorbid conditions. #DVT prophylaxis - Lovenox 30 mg SQ q 24 hours. #Advance directives - Full code Family Medical History Family History: As Documented Visit type - Medication Review Med list reviewed for High Risk Meds patients 65 and older: Yes - Emergency Visit Emergency Visit: Yes ED Registration Date: 03/26/20 Care time: The patient presented to the Emergency Department on the above date and was hospitalized for further evaluation of their emergent condition. - New Patient This patient is new to me today: Yes Date on this admission: 03/27/20 - Critical Care Critical Care patient: No ATTENDING PHYSICIAN STATEMENT I saw and evaluated the patient. I reviewed the resident's note and discussed the case with the resident. I agree with the resident's findings and plan as documented. SUBJECTIVE: OBJECTIVE: ASSESSMENT AND PLAN:
[2020-03-27] MEDS: DEXTROSE 5%-0.45% SALINE 1,000 ML IV SCH ×2 (01:25→22:50)
[2020-03-27 02:53] LABS: PH,URINE >= 9.0 (5.0-8.0); URINE APPEARANCE TURBID; URINE BILIRUBIN NEGATIVE (NEGATIVE); URINE COLOR YELLOW; URINE GLUCOSE (UA) NEGATIVE (NEGATIVE); URINE KETONE NEGATIVE (NEGATIVE); URINE LEUK ESTERASE NEGATIVE (NEGATIVE); URINE NITRITE NEGATIVE (NEGATIVE); URINE PROTEIN NEGATIVE (NEGATIVE); URINE UROBILINOGEN 0.2 mg/dL (0.2-1.0)
[2020-03-27] MEDS: ACETAMINOPHEN 325 MG TABLET (FP) PO SCH ×2 (05:07→12:48)
[2020-03-27] MEDS ORDERED: METOCLOPRAMIDE HCL INJECTION 10 MG/2 ML VIAL IVPUSH PRN (06:00)
[2020-03-27] MEDS ORDERED: SODIUM CHLORIDE 1,000 ML IV SCH (06:30)
[2020-03-27] MEDS: HEPARIN NA (PORCINE) 5,000 UNITS/ML 1ML VIAL SQ SCH ×2 (09:55→22:49)
[2020-03-27] MEDS: MEGESTROL ACETATE 400 MG/10 ML UNIT DOSE CUP PO SCH (09:56)
[2020-03-27] MEDS: POLYETHYLENE GLYCOL 3350 119 GM BTL PO SCH (09:56)
[2020-03-27] MEDS ORDERED: PANTOPRAZOLE SODIUM 40 MG VIAL IVPUSH SCH (10:00)
--- NOTE | 2020-03-27 11:35 | PN ---
Progress Note, Physician Chief Complaint: Nausea/Vomiting Cachexia Anemia History of Present Illness: Patient is a 74 year old woman with PMH of Malnutrition, Anemia, Depression, Schizophrenia, Anorexia, and Sacral fracture brought in from [facility] when the nursing staff noted that the patient had been vomiting more than usual. Staff at [facility] report she usually note that the patient has nausea and clear emesis everyday, but today was increasingly so. The patient is a poor historian and is able to provide limited detail. The patient endorses multiple episodes of emisis of undigested food without blood or bile. Patient denies chest pain, shortness of breath, abdominal pain, headache, palpitations, dizziness, fever, chills, diarrhea, constipation, dysuria, frequency, urgency, melena, hematochezia or hematuria. NAD wretching in the room, states she is just spitting phlegm, has had cold for past 1 week. Refusing medical treatment. - Current Medication List Current Medications: Active Medications Acetaminophen (Tylenol -) 650 mg PO Q6H [facility] Last Admin: 03/27/20 05:07 Dose: Not Given Documented by: Heparin Sodium (Porcine) (Heparin -) 5,000 unit SQ BID [facility] Last Admin: 03/27/20 09:55 Dose: Not Given Documented by: Dextrose/Sodium Chloride (D5-1/2ns -) 1,000 mls @ 75 mls/hr IV ASDIR [facility] Last Admin: 03/27/20 01:25 Dose: 75 mls/hr Documented by: Sodium Chloride (Normal Saline -) 1,000 mls @ 42 mls/hr IV [facility]IR [facility] Megestrol Acetate (Megace Oral Suspension -) 400 mg PO DAILY [facility] Last Admin: 03/27/20 09:56 Dose: Not Given Documented by: Metoclopramide HCl (Reglan Injection -) 5 mg IVPUSH Q6H PRN PRN Reason: NAUSEA AND/OR VOMITING Pantoprazole Sodium (Protonix Iv) 40 mg IVPUSH DAILY [facility] Last Admin: 03/27/20 09:56 Dose: Not Given Documented by: Polyethylene Glycol (Miralax (For Daily Use) -) 17 gm PO DAILY [facility] Last Admin: 03/27/20 09:56 Dose: Not Given Documented by: - Objective Vital Signs: Vital Signs Temperature 98.0 F 03/27/20 06:49 Pulse Rate 85 03/27/20 06:49 Respiratory Rate 17 03/27/20 06:49 Blood Pressure 112/75 03/27/20 06:49 O2 Sat by Pulse Oximetry (%) 98 03/27/20 06:49 Constitutional: Yes: No Distress, Calm, Cachectic Cardiovascular: Yes: Regular Rate and Rhythm Respiratory: Yes: Regular, CTA Bilaterally Gastrointestinal: Yes: Normal Bowel Sounds, Soft Genitourinary: Yes: WNL Musculoskeletal: Yes: Muscle Weakness Extremities: Yes: WNL Edema: No Peripheral Pulses WNL: Yes Neurological: Yes: Alert, Confusion, Pre-Existing Deficit Labs: CBC, BMP 03/26/20 17:44 03/26/20 17:44 Problem List - Problems (1) Cachexia Assessment/Plan: -On megastrol, continue -Ensure BID Problems reviewed: Yes Code(s): R64 - CACHEXIA (2) Malnutrition Problems reviewed: Yes Code(s): E46 - UNSPECIFIED PROTEIN-CALORIE MALNUTRITION (3) Failure to thrive Problems reviewed: Yes Code(s): DAC3268 - (4) Vomiting Assessment/Plan: -Refuses all medical treatment -GI consult -CTAP shows large hiatal hernia -Palliative care for goals of care Problems reviewed: Yes Code(s): R11.10 - VOMITING, UNSPECIFIED Qualifiers: Vomiting type: unspecified Vomiting Intractability: unspecified Nausea presence: with nausea Qualified Code(s): R11.2 - Nausea with vomiting, unspecified Assessment/Plan See problem list Psych consult to determine ability to make decisions
[2020-03-27] MEDS ORDERED: ONDANSETRON *ODT* 4 MG TABLET SL PRN (13:04)
--- NOTE | 2020-03-27 13:35 | EKG ---
Test Reason : Blood Pressure : / mmHG Vent. Rate : 073 BPM Atrial Rate : 073 BPM P-R Int : 168 ms QRS Dur : 072 ms QT Int : 394 ms P-R-T Axes : 060 -12 042 degrees QTc Int : 434 ms NORMAL SINUS RHYTHM POSSIBLE LEFT ATRIAL ENLARGEMENT BORDERLINE ECG WHEN COMPARED WITH ECG OF 01-JUN-2019 23:00, NO SIGNIFICANT CHANGE WAS FOUND Confirmed by AGUSTINA GAVIN MD ([id number]) on 03/27/2020 1:35:04 PM Referred By: Confirmed By:AGUSTINA GAVIN MD
--- NOTE | 2020-03-27 13:59 | CON.GI ---
Consult Consult Specialty:: GI Referred by:: Dr. Sharon Espana Reason for Consultation:: Vomiting - History of Present Illness Chief Complaint: PAtient denies any focal complaints History of Present Illness: 74F admitted from [facility] for evaluation of worsening of chronic vomiting. She denies vomiting. She denies any focal complaints and wants to be discharged. She has refused IV access. CT scan performed revealed a large hiatal hernia. She believes that she may have had a EGD and colonoscopy a few years ago. She cannot recall the findings. She denies abdominal pain. She does not want any further testing. - History Source History Provided By: Patient Limitations to Obtaining History: Poor Historian - Past Medical History ...: No Additional Medical History: Patient denies a medical history but carries diagnoses of Anemia, Depression, Schizophrenia, Anorexia, Sacral fracture - Past Surgical History Additional Surgical History: Denies - Alcohol/Substance Use Hx Alcohol Use: No History of Substance Use: reports: None - Smoking History Smoking history: Never smoked Have you smoked in the past 12 months: No - Social History Usual Living Arrangement: Detention ADL: Support Services Place of : [facility] History of Recent Travel: No Home Medications - Allergies Allergies/Adverse Reactions: Allergies Allergy/AdvReac Type Severity Reaction Status Date / Time No Known Allergies Allergy Verified 03/26/20 17:05 - Home Medications Home Medications: Ambulatory Orders Methyl Salicylate/Menthol Oint [Analgesic [place] -] 1 applic TP DAILY 30 Days applic 06/06/19 Acetaminophen [Tylenol -] 650 mg PO Q6H #100 tablet 06/11/19 Calcium 500Mg/Vit-D 200 Units [Os-Manuel 500+D -] 2 tab PO DAILY tab 06/11/19 Docusate Sodium [Colace -] 100 mg PO DAILY #0 capsule 06/11/19 Megestrol Acetate Oral Susp [Megace Oral Suspension -] 400 mg PO DAILY cup 06/11/19 Oxybutynin Chloride 5 mg PO DAILY #30 tablet 06/11/19 Pantoprazole Sodium [Protonix -] 20 mg PO DAILY #30 tablet.ec 06/11/19 Polyethylene Glycol 3350 [Miralax 119 gm Btl -] 17 gm PO DAILY bottle 06/11/19 Sennosides [Senna -] 1 tab PO HS tablet 06/11/19 Venlafaxine HCl ER [Effexor Xr -] 37.5 mg PO DAILY cap.er.24h 06/11/19 Family Medical History Other Family History: Denies history of GI cancer Physical Exam-GI Vital Signs: Vital Signs Temperature 98.0 F 03/27/20 06:49 Pulse Rate 85 03/27/20 06:49 Respiratory Rate 17 03/27/20 06:49 Blood Pressure 112/75 03/27/20 06:49 O2 Sat by Pulse Oximetry (%) 98 03/27/20 06:49 Constitutional: Yes: Calm Eyes: No: Sclera Icterus Cardiovascular: Yes: Regular Rate and Rhythm Respiratory: Yes: CTA Bilaterally Gastrointestinal Inspection: No: Distention ...Auscultate: Yes: Normoactive Bowel Sounds ...Palpate: Yes: Soft. No: Hepatomegaly, Splenomegaly, Tenderness ...Percussion: No: Tympanitic Edema: No (No LE edema) Neurological: Yes: Alert Labs: CBC, BMP 03/26/20 17:44 03/26/20 17:44 Problem List - Problems (1) Vomiting Assessment/Plan: Denies having vomiting ? psych issue with underlying somatic issue. ? if hiatal hernia playing a role Refuses further evaluation or testing and wants to be discharged Advise: Psych consult / transfer to a institution with a medical psychiatric unit if that is appropriate Recall as needed Code(s): R11.10 - VOMITING, UNSPECIFIED Qualifiers: Vomiting type: unspecified Vomiting Intractability: unspecified Nausea presence: with nausea Qualified Code(s): R11.2 - Nausea with vomiting, unspecified
[2020-03-27] MEDS ORDERED: ACETAMINOPHEN 325 MG TABLET (FP) PO PRN (15:08)
[2020-03-27 20:39] VITALS: BMI 14.8
[2020-03-27] MEDS ORDERED: PT OWN MED DRAWER 7, Y5N ONE (22:03)
[2020-03-27] MEDS: guaiFENesin/D-METHORPHAN TAB.ER.12H PO SCH (22:50)
[2020-03-28] MEDS ORDERED: guaiFENesin 200 MG/10 ML 10 ML UNIT-DOSE CUPS PO PRN (00:14)
--- NOTE | 2020-03-28 09:26 | PN ---
Progress Note, Physician - Current Medication List Current Medications: Active Medications Acetaminophen (Tylenol -) 650 mg PO Q6H PRN PRN Reason: PAIN LEVEL 1-5 Guaifenesin (Mucinex Dm -) 2 tablet PO BID [facility] Last Admin: 03/27/20 22:50 Dose: Not Given Documented by: Guaifenesin (Robitussin -) 10 ml PO Q6H PRN PRN Reason: COUGH Last Admin: 03/28/20 00:39 Dose: 10 ml Documented by: Heparin Sodium (Porcine) (Heparin -) 5,000 unit SQ BID [facility] Last Admin: 03/27/20 22:49 Dose: Not Given Documented by: Dextrose/Sodium Chloride (D5-1/2ns -) 1,000 mls @ 75 mls/hr IV ASDIR [facility] Last Admin: 03/27/20 22:50 Dose: Not Given Documented by: Influenza Virus Vaccine (Flulaval Quad 1309-7059 Syr) 60 mcg IM .ONCE ONE Stop: 03/28/20 10:01 Megestrol Acetate (Megace Oral Suspension -) 400 mg PO DAILY [facility] Last Admin: 03/27/20 09:56 Dose: Not Given Documented by: Metoclopramide HCl (Reglan Injection -) 5 mg IVPUSH Q6H PRN PRN Reason: NAUSEA AND/OR VOMITING Multivitamins/Minerals (Theragran-M) 1 each PO DAILY [facility] Ondansetron HCl (Zofran Odt -) 4 mg SL Q6H PRN PRN Reason: NAUSEA AND/OR VOMITING Pantoprazole Sodium (Protonix -) 40 mg PO DAILY [facility] Pneumococcal 13-Valent Conj Vacc (Prevnar 13 Syringe -) 0.5 ml IM .ONCE ONE Stop: 03/28/20 10:01 Polyethylene Glycol (Miralax (For Daily Use) -) 17 gm PO DAILY [facility] Last Admin: 03/27/20 09:56 Dose: Not Given Documented by: - Objective Vital Signs: Vital Signs Temperature 98.2 F 03/27/20 12:00 Pulse Rate 71 03/27/20 12:00 Respiratory Rate 18 03/27/20 21:00 Blood Pressure 119/81 03/27/20 12:00 O2 Sat by Pulse Oximetry (%) 98 03/27/20 12:00 Cardiovascular: Yes: S1, S2 Respiratory: Yes: Regular, CTA Bilaterally Gastrointestinal: Yes: Normal Bowel Sounds, Soft Labs: CBC, BMP 03/26/20 17:44 03/26/20 17:44 Assessment/Plan - Problems (1) Cachexia Assessment/Plan: -On megastrol, continue -Ensure BID Problems reviewed: Yes Code(s): R64 - CACHEXIA (2) Malnutrition Problems reviewed: Yes Code(s): E46 - UNSPECIFIED PROTEIN-CALORIE MALNUTRITION (3) Failure to thrive -Encourage supplements Problems reviewed: Yes Code(s): [id number] - (4) Vomiting Assessment/Plan: -Refuses all medical treatment -GI consult appreciated -CTAP shows large hiatal hernia -Palliative care for goals of care Problems reviewed: Yes Code(s): R11.10 - VOMITING, UNSPECIFIED Qualifiers: Vomiting type: unspecified Vomiting Intractability: unspecified Nausea presence: with nausea Qualified Code(s): R11.2 - Nausea with vomiting, unspecified (5) Hyperkalemia Problems reviewed: Yes Repeat
[2020-03-28] MEDS ORDERED: FLU VACCINE (FLULAVAL) PF 60 MCG/0.5 ML SYRINGE 2020-2021 IM ONE (10:00)
[2020-03-28] MEDS ORDERED: PNEUMOC 13-VAL CONJ-DIP CRM/PF 0.5 ML DISP.SYRIN IM ONE (10:00)
[2020-03-28 11:06] LABS: BASO % 0.7 % (0-2.0); EOS % 0.9 % (0-4.5); HEMATOCRIT 31.8 % (32.4-45.2); HEMOGLOBIN 10.2 GM/dL (10.7-15.3); LYMPH % 19.6 % (8-40); MCH 28.9 pg (25.7-33.7); MCHC 32.2 g/dl (32.0-36.0); MEAN CELL VOLUME 89.7 fl (80-96); MEAN PLT VOLUME 7.4 fl (7.5-11.1); MONO % 8.6 % (3.8-10.2); NEUT % 70.2 % (42.8-82.8); PLATELET COUNT 306 K/MM3 (134-434); RBC 3.55 M/mm3 (3.60-5.2); RDW 15.6 % (11.6-15.6); WHITE BLOOD COUNT 9.2 K/mm3 (4.0-10.0)
[2020-03-28] MEDS: HEPARIN NA (PORCINE) 5,000 UNITS/ML 1ML VIAL SQ SCH ×2 (11:06→21:44)
[2020-03-28] MEDS: MEGESTROL ACETATE 400 MG/10 ML UNIT DOSE CUP PO SCH (11:06)
[2020-03-28] MEDS: guaiFENesin/D-METHORPHAN TAB.ER.12H PO SCH ×2 (11:07→21:50)
[2020-03-28] MEDS: MULTIVITAMINS THER W-MINERALS COMBO TABLET (FP) PO SCH (11:07)
[2020-03-28] MEDS: POLYETHYLENE GLYCOL 3350 119 GM BTL PO SCH (11:07)
[2020-03-28 11:36] LABS: ALBUMIN 3.3 g/dl (3.4-5.0); BLOOD UREA NITROGEN 13.3 mg/dL (7-18); CALCIUM 8.9 mg/dL (8.5-10.1); CREATININE 0.5 mg/dL (0.55-1.3); POTASSIUM 4.2 mmol/L (3.5-5.1); TOT PROT 6.3 g/dl (6.4-8.2)
[2020-03-28] MEDS: PANTOPRAZOLE 40 MG TABLET PO SCH (12:27)
--- NOTE | 2020-03-28 15:50 | CON.PSY ---
Psychiatry Consult Chief Complaint: 74 katie lyons female a Resident of [facility] sentv to [facility] for ? Bulemia.. She is placed on 1:1 for pulling an IV tube.. Non reports of any [place] Suicidal behaviour.. on no Psych meds.. Seen for Competency ??/ to make decions.. Symptoms: reports: Bulimic Behavior - Previous Psychiatric Treatment Outpatient: None Inpatient: None - Previous Substance Abuse Treatment Outpatient: None Inpatient: None - Current Medications Current Medications: Active Medications Acetaminophen (Tylenol -) 650 mg PO Q6H PRN PRN Reason: PAIN LEVEL 1-5 Guaifenesin (Mucinex Dm -) 2 tablet PO BID [facility] Last Admin: 03/28/20 11:07 Dose: Not Given Documented by: Guaifenesin (Robitussin -) 10 ml PO Q6H PRN PRN Reason: COUGH Last Admin: 03/28/20 00:39 Dose: 10 ml Documented by: Heparin Sodium (Porcine) (Heparin -) 5,000 unit SQ BID [facility] Last Admin: 03/28/20 11:06 Dose: Not Given Documented by: Dextrose/Sodium Chloride (D5-1/2ns -) 1,000 mls @ 75 mls/hr IV ASDIR [facility] Last Admin: 03/27/20 22:50 Dose: Not Given Documented by: Megestrol Acetate (Megace Oral Suspension -) 400 mg PO DAILY [facility] Last Admin: 03/28/20 11:06 Dose: Not Given Documented by: Metoclopramide HCl (Reglan Injection -) 5 mg IVPUSH Q6H PRN PRN Reason: NAUSEA AND/OR VOMITING Multivitamins/Minerals (Theragran-M) 1 each PO DAILY [facility] Last Admin: 03/28/20 11:07 Dose: Not Given Documented by: Ondansetron HCl (Zofran Odt -) 4 mg SL Q6H PRN PRN Reason: NAUSEA AND/OR VOMITING Pantoprazole Sodium (Protonix -) 40 mg PO DAILY [facility] Last Admin: 03/28/20 12:27 Dose: Not Given Documented by: Polyethylene Glycol (Miralax (For Daily Use) -) 17 gm PO DAILY [facility] Last Admin: 03/28/20 11:07 Dose: Not Given Documented by: - Allergies Allergies: Allergies Allergy/AdvReac Type Severity Reaction Status Date / Time No Known Allergies Allergy Verified 03/26/20 17:05 - Current Living Status Usual Living Arrangement: Halfway - Current Mental Status Evaluation Appearance: Other (frail) Attitude: Guarded - Affect Affect: Constrictive Appropriateness: Appropriate to Content - Mood Mood: Irritable - Speech/Language Expressive: Coherent - Thought Process Thought Process: Intact - Thought Content Hallucinations: Absent Delusions: Absent - Self Perception Self Perception: No Impairment - Cognition Attention: Alert Memory, Immediate Recall: Intact Memory, Short Term: 2/3 Memory, Remote with Promptin/3 - Concentration Serial Sevens Intact: No Simple Calculations Intact: No - Abstraction Proverb Interpretation: [place] Judgement: Minimally Impaired - Insight Insight: Intact - Impulse Control Impulse Control: Minimally Impaired - Suicidal Ideation Suicidal Ideation: No - Homicidal Ideation Homicidal Ideation: No Assessment/Plan 1) patient does not need 1:1. 2) No need for In patient Psych admission . 3) Halfway Psychiatrist along with Psychologist and SW should devise a plan to manage t5his patient.. 4) discharge patient to N Home when medically stable..
[2020-03-28] MEDS ORDERED: MAG HYDROX/AL HYDROX/SIMETH 30 ML UNIT-DOSE CUP PO PRN (20:14)
[2020-03-29] MEDS: DEXTROSE 5%-0.45% SALINE 1,000 ML IV SCH (05:12)
[2020-03-29] MEDS ORDERED: PT OWN MED DRAWER 7, Y5N ONE ×2 (10:06→21:37)
[2020-03-29] MEDS: PANTOPRAZOLE 40 MG TABLET PO SCH (10:12)
[2020-03-29] MEDS: MEGESTROL ACETATE 400 MG/10 ML UNIT DOSE CUP PO SCH (10:12)
[2020-03-29] MEDS: MULTIVITAMINS THER W-MINERALS COMBO TABLET (FP) PO SCH (10:12)
[2020-03-29] MEDS: HEPARIN NA (PORCINE) 5,000 UNITS/ML 1ML VIAL SQ SCH ×2 (10:14→21:38)
[2020-03-29] MEDS: POLYETHYLENE GLYCOL 3350 119 GM BTL PO SCH (10:14)
[2020-03-29] MEDS: guaiFENesin/D-METHORPHAN TAB.ER.12H PO SCH ×2 (10:26→21:48)
--- NOTE | 2020-03-29 13:23 | PN ---
Progress Note (short form) - Note Progress Note: Psych follow up; Patient seen this afternoon, lying ion bed alert, watching a Cooking Show,ironic, but eating lunch.. Had eaten major portion of her lunch.. MS; alert, oriented, pleasant, able to comprehend, Denies feeling Depressed or suicidal at this time. Non evidence of any acute Psychosis. Cognition is intact. Able to comprehend,, REC: 1) Patient has the Mental Capacity to make Decisions at this time. 2) No Psych meds needed.
--- NOTE | 2020-03-29 14:26 | DS ---
Physical Examination Vital Signs: Vital Signs Temperature 97.7 F 03/29/20 10:00 Pulse Rate 80 03/29/20 10:00 Respiratory Rate 18 03/29/20 10:00 Blood Pressure 100/59 L 03/29/20 10:00 O2 Sat by Pulse Oximetry (%) 97 03/29/20 10:00 Constitutional: Yes: No Distress, Calm, Thin Eyes: Yes: Conjunctiva Clear HENT: Yes: Atraumatic Cardiovascular: Yes: Regular Rate and Rhythm Respiratory: Yes: Regular, CTA Bilaterally Gastrointestinal: Yes: Normal Bowel Sounds, Soft Musculoskeletal: Yes: Muscle Weakness Extremities: Yes: WNL Edema: No Neurological: Yes: Alert, Oriented Psychiatric: Yes: Alert, Oriented Labs: CBC, BMP 03/28/20 10:30 03/28/20 10:30 Discharge Summary Problems reviewed: Yes Reason For Visit: FAILURE TO THRIVE, VOMITING Current Active Problems Cachexia (Acute) Failure to thrive (Acute) Malnutrition (Acute) Vomiting (Acute) Procedures: Principal: EKG, CTAP, CXR Hospital Course: Patient is a 74 y/o female with PMH of Malnutrition, Anemia, Depression, Schizophrenia, Anorexia, and Sacral fracture brought in from [facility] when the nursing staff noted that the patient had been vomiting more than usual. Staff at [facility] report she usually note that the patient has nausea and clear emesis everyday, but today was increasingly so. The patient is a poor historian and is able to provide limited detail. The patient endorses multiple episodes of emisis of undigested food without blood or bile. Patient denies chest pain, shortness of breath, abdominal pain, headache, palpitations, dizziness, fever, chills, babs rrhea, constipation, dysuria, frequency, urgency, melena, hematochezia or hematuria. While admitted she had a CTAP done which showed markedly limited study with no evidence of acute pathology within the abdomen or pelvis. GI was consulted for the vomiting and denied having vomiting on the exam. She also refused any further testing or evaluation when GI was present. Psychiatry consult was place d and she was deemed competent and has mental capacity to make decisions. On examination patient continues to have vomiting with clear contents. She denies any abdominal pain with vomiting. She says despite vomiting she is able to keep food down. Labs show no leukocytosis and Potassium level showed downtrend from 5.6 to 4.2. Patient is medically stable to return to [facility]. Condition: Stable - Instructions Diet, Activity, Other Instructions: Patient is to follow up with PCP [facility] continue with medication as prescribed Monitor K level weekly return to ER if develop severe abdominal pain, chest pain, or respiratory distress Referrals: Trey Vivar MD [Primary Care Provider] - Disposition: LONG TERM FACILITY - Home Medications Comprehensive Discharge Medication List: Ambulatory Orders Methyl Salicylate/Menthol Oint [Analgesic [place] -] 1 applic TP DAILY 30 Days applic 06/06/19 Acetaminophen [Tylenol -] 650 mg PO Q6H #100 tablet 06/11/19 Calcium 500Mg/Vit-D 200 Units [Os-Manuel 500+D -] 2 tab PO DAILY tab 06/11/19 Docusate Sodium [Colace -] 100 mg PO DAILY #0 capsule 06/11/19 Megestrol Acetate Oral Susp [Megace Oral Suspension -] 400 mg PO DAILY cup 06/11/19 Oxybutynin Chloride 5 mg PO DAILY #30 tablet 06/11/19 Pantoprazole Sodium [Protonix -] 20 mg PO DAILY #30 tablet.ec 06/11/19 Polyethylene Glycol 3350 [Miralax 119 gm Btl -] 17 gm PO DAILY bottle 06/11/19 Sennosides [Senna -] 1 tab PO HS tablet 06/11/19 Venlafaxine HCl ER [Effexor Xr -] 37.5 mg PO DAILY cap.er.24h 06/11/19
[2020-03-30] MEDS: DEXTROSE 5%-0.45% SALINE 1,000 ML IV SCH ×2 (10:54→23:00)
[2020-03-30] MEDS: HEPARIN NA (PORCINE) 5,000 UNITS/ML 1ML VIAL SQ SCH ×2 (10:58→21:49)
--- NOTE | 2020-03-30 11:00 | PN ---
Progress Note, Physician Chief Complaint: FTT Vomiting History of Present Illness: Previous notes and events reviewed awake and alert NAD denies chest pain or abdominal pain states that her vomiting is improved today pending discharge back to [facility] - Current Medication List Current Medications: Active Medications Acetaminophen (Tylenol -) 650 mg PO Q6H PRN PRN Reason: PAIN LEVEL 1-5 Al Hydroxide/Mg Hydroxide (Mylanta Oral Suspension -) 30 ml PO BID PRN PRN Reason: INDIGESTION Last Admin: 03/28/20 21:44 Dose: 30 ml Documented by: Guaifenesin (Mucinex Dm -) 2 tablet PO BID [facility] Last Admin: 03/29/20 21:48 Dose: 1 tablet Documented by: Guaifenesin (Robitussin -) 10 ml PO Q6H PRN PRN Reason: COUGH Last Admin: 03/28/20 00:39 Dose: 10 ml Documented by: Heparin Sodium (Porcine) (Heparin -) 5,000 unit SQ BID [facility] Last Admin: 03/29/20 21:38 Dose: 5,000 unit Documented by: Dextrose/Sodium Chloride (D5-1/2ns -) 1,000 mls @ 75 mls/hr IV ASDIR [facility] Last Admin: 03/29/20 05:12 Dose: Not Given Documented by: Megestrol Acetate (Megace Oral Suspension -) 400 mg PO DAILY [facility] Last Admin: 03/29/20 10:12 Dose: 400 mg Documented by: Metoclopramide HCl (Reglan Injection -) 5 mg IVPUSH Q6H PRN PRN Reason: NAUSEA AND/OR VOMITING Multivitamins/Minerals (Theragran-M) 1 each PO DAILY [facility] Last Admin: 03/29/20 10:12 Dose: 1 each Documented by: Ondansetron HCl (Zofran Odt -) 4 mg SL Q6H PRN PRN Reason: NAUSEA AND/OR VOMITING Pantoprazole Sodium (Protonix -) 40 mg PO DAILY [facility] Last Admin: 03/29/20 10:12 Dose: 40 mg Documented by: Polyethylene Glycol (Miralax (For Daily Use) -) 17 gm PO DAILY [facility] Last Admin: 03/29/20 10:14 Dose: Not Given Documented by: - Objective Vital Signs: Vital Signs Temperature 97.9 F 03/30/20 06:00 Pulse Rate 88 03/30/20 06:00 Respiratory Rate 18 03/30/20 06:00 Blood Pressure 96/63 03/30/20 06:00 O2 Sat by Pulse Oximetry (%) 98 03/30/20 06:00 Constitutional: Yes: No Distress, Calm, Thin Eyes: Yes: Conjunctiva Clear HENT: Yes: Atraumatic Cardiovascular: Yes: Regular Rate and Rhythm Respiratory: Yes: Regular, CTA Bilaterally Gastrointestinal: Yes: Normal Bowel Sounds, Soft Musculoskeletal: Yes: Muscle Weakness Extremities: Yes: WNL Edema: No Neurological: Yes: Alert, Oriented Psychiatric: Yes: Alert, Oriented Labs: CBC, BMP 03/28/20 10:30 03/28/20 10:30 Microbiology 03/27/20 14:00 Urine - Urine Clean Catch Urine Culture - Final Escherichia Coli Problem List - Problems (1) Failure to thrive Code(s): [id number] - (2) Malnutrition Assessment/Plan: Continue Megastrol Ensure BID Code(s): E46 - UNSPECIFIED PROTEIN-CALORIE MALNUTRITION (3) Vomiting Assessment/Plan: GI on board CTAP shows markedly limited study with no evidence of acute pathologywithin the abdomen or pelvis CXR shows questionable hiatal hernia Ashley prn for vomiting Code(s): R11.10 - VOMITING, UNSPECIFIED Qualifiers: Vomiting type: unspecified Vomiting Intractability: unspecified Nausea presence: with nausea Qualified Code(s): R11.2 - Nausea with vomiting, unspecified (4) Depression Assessment/Plan: Psychiatry eval done Code(s): F32.9 - MAJOR DEPRESSIVE DISORDER, SINGLE EPISODE, UNSPECIFIED Assessment/Plan see problem list pending d/c back to SNF
[2020-03-30] MEDS: POLYETHYLENE GLYCOL 3350 119 GM BTL PO SCH (11:01)
[2020-03-30] MEDS: guaiFENesin/D-METHORPHAN TAB.ER.12H PO SCH ×2 (11:01→21:49)
[2020-03-30] MEDS: MEGESTROL ACETATE 400 MG/10 ML UNIT DOSE CUP PO SCH (11:01)
[2020-03-30] MEDS: MULTIVITAMINS THER W-MINERALS COMBO TABLET (FP) PO SCH (11:02)
[2020-03-30] MEDS: PANTOPRAZOLE 40 MG TABLET PO SCH (11:02)
[2020-03-30] MEDS ORDERED: PT OWN MED DRAWER 7, Y5N ONE ×2 (18:48→21:28)
[2020-03-31 06:35] VITALS: PULSE 72
--- NOTE | 2020-03-31 08:34 | DS ---
Physical Examination Vital Signs: Vital Signs Temperature 98.3 F 03/31/20 06:00 Pulse Rate 72 03/31/20 06:00 Respiratory Rate 16 03/31/20 06:00 Blood Pressure 82/56 L 03/31/20 06:00 O2 Sat by Pulse Oximetry (%) 98 03/31/20 06:00 Labs: CBC, BMP 03/28/20 10:30 03/28/20 10:30 Discharge Summary Problems reviewed: Yes Reason For Visit: FAILURE TO THRIVE, VOMITING Current Active Problems Cachexia (Acute) Failure to thrive (Acute) Malnutrition (Acute) Vomiting (Acute) Hospital Course: Patient is a 74 y/o female with PMH of Malnutrition, Anemia, Depression, Schizophrenia, Anorexia, and Sacral fracture brought in from [facility] when the nursing staff noted that the patient had been vomiting more than usual. Staff at [facility] report she usually note that the patient has nausea and clear emesis everyday, but today was increasingly so. The patient is a poor historian and is able to provide limited detail. The patient endorses multiple episodes of emisis of undigested food without blood or bile. Patient denies chest pain, shortness of breath, abdominal pain, headache, palpitations, dizziness, fever, chills, diarrhea, constipation, dysuria, frequency, urgency, melena, hematochezia or hematuria. While admitted she had a CTAP done which showed markedly limited study with no evidence of acute pathology within the abdomen or pelvis. GI was consulted for the vomiting and denied having vomiting on the exam. She also refused any further testing or evaluation when GI was present. Psychiatry consult was placed and she was deemed competent and has mental capacity to make decisions. On examination patient continues to have vomiting with clear contents. She denies any abdominal pain with vomiting. She says despite vomiting she is able to keep food down. Labs show no leukocytosis and Potassium level showed downtr end from 5.6 to 4.2. Patient is medically stable to return to [facility]. Condition: Stable - Instructions Diet, Activity, Other Instructions: Patient is to follow up with PCP upon return to [facility] continue with medication as prescribed Monitor K level weekly return to ER if develop severe abdominal pain, chest pain, or respiratory distress Referrals: Trey Vivar MD [Primary Care Provider] - Disposition: HALF-WAY FACILITY - Home Medications Comprehensive Discharge Medication List: Ambulatory Orders Methyl Salicylate/Menthol Oint [Analgesic [place] -] 1 applic TP DAILY 30 Days applic 06/06/19 Acetaminophen [Tylenol .Regular Strength -] 650 mg PO Q6H #100 tablet 06/11/19 Calcium 500Mg/Vit-D 200 Units [Os-Manuel 500+D -] 2 tab PO DAILY tab 06/11/19 Docusate Sodium [Colace -] 100 mg PO DAILY #0 capsule 06/11/19 Megestrol Acetate Oral Susp [Megace Oral Suspension -] 400 mg PO DAILY cup 06/11/19 Oxybutynin Chloride 5 mg PO DAILY #30 tablet 06/11/19 Pantoprazole Sodium [Protonix -] 20 mg PO DAILY #30 tablet.ec 06/11/19 Polyethylene Glycol 3350 [Miralax 119 gm Btl -] 17 gm PO DAILY bottle 06/11/19 Sennosides [Senna -] 1 tab PO HS tablet 06/11/19 Venlafaxine HCl ER [Effexor Xr -] 37.5 mg PO DAILY cap.er.24h 06/11/19 Guaifenesin Dm [Mucinex Dm -] 2 tablet PO BID tab.er.12h 03/29/20 Heparin - 5,000 unit SQ BID vial 03/29/20 Mag Hydrox/Al Hydrox/Simeth [Mylanta Oral Suspension -] 30 ml PO BID PRN cup 03/29/20 Pantoprazole Sodium [Protonix -] 40 mg PO DAILY tablet.ec 03/29/20
[2020-03-31] MEDS: HEPARIN NA (PORCINE) 5,000 UNITS/ML 1ML VIAL SQ SCH (09:58)
[2020-03-31] MEDS: POLYETHYLENE GLYCOL 3350 119 GM BTL PO SCH (09:59)
[2020-03-31] MEDS: guaiFENesin/D-METHORPHAN TAB.ER.12H PO SCH (09:59)
[2020-03-31] MEDS: PANTOPRAZOLE 40 MG TABLET PO SCH (09:59)
[2020-03-31] MEDS: MEGESTROL ACETATE 400 MG/10 ML UNIT DOSE CUP PO SCH (09:59)
[2020-03-31] MEDS: MULTIVITAMINS THER W-MINERALS COMBO TABLET (FP) PO SCH (09:59)
[2020-03-31 10:57] VITALS: BP 94/59; TEMP 98
== END 2020-03-31 11:57 | DRG 391 ==
LOC: JER 16:54 → JERBED 23:01 → J5S 03-27 10:55
PROVIDERS: ADMIT Family Medicine; ATTEND Family Medicine
DX: R11.2 Nausea with vomiting, unspecified (principal); E43 Unspecified severe protein-calorie malnutrition; Z68.1 Body mass index [BMI] 19.9 or less, adult; R64 Cachexia; R62.7 Adult failure to thrive; M54.5 Low back pain; G47.00 Insomnia, unspecified; K59.09 Other constipation; F20.9 Schizophrenia, unspecified; F03.90 Unspecified dementia, unspecified severity, without behavioral disturbance, psychotic disturbance, mood disturbance, and anxiety; D64.9 Anemia, unspecified; E88.09 Other disorders of plasma-protein metabolism, not elsewhere classified; F32.9 Major depressive disorder, single episode, unspecified; E87.5 Hyperkalemia
CPT/HCPCS: 36415; 71046-TC-FY; 74176-TC; 80053; 81003; 82550; 83690; 84484; 85025; 87086; 87186; 93005; 93010; 97116-GP; 97161-GP; 99285-25; C9803; J1644; U0003

== ENCOUNTER 2020-10-07 17:20 | Inpatient (IN) | payer OTHER ==
[2020-10-07 18:09] VITALS: BMI 23.0
[2020-10-07 19:57] LABS: BASO % 0.6 % (0-2.0); EOS % 0.1 % (0-4.5); HEMATOCRIT 20.7 % (32.4-45.2); LYMPH % 14.5 % (8-40); MCH 30.1 pg (25.7-33.7); MCHC 32.4 g/dl (32.0-36.0); MEAN CELL VOLUME 92.8 fl (80-96); MEAN PLT VOLUME 7.5 fl (7.5-11.1); MONO % 4.8 % (3.8-10.2); PLATELET COUNT 481 K/MM3 (134-434); RBC 2.23 M/mm3 (3.60-5.2); WHITE BLOOD COUNT 10.4 K/mm3 (4.0-10.0)
[2020-10-07 20:07] LABS: HEMOGLOBIN 6.7 GM/dL (10.7-15.3)
[2020-10-07 20:17] LABS: ALBUMIN 2.3 g/dl (3.4-5.0); BLOOD UREA NITROGEN 27.7 mg/dL (7-18); CALCIUM 7.7 mg/dL (8.5-10.1)
[2020-10-07 20:21] LABS: CREATININE 0.7 mg/dL (0.55-1.3)
[2020-10-07 20:22] LABS: BILIRUBIN,TOTAL 0.2 mg/dL (0.2-1); TOT PROT 4.8 g/dl (6.4-8.2)
[2020-10-07] MEDS ORDERED: SODIUM CHLORIDE 0.9% 500 ML INFUS.BAG IV ONE (20:22)
[2020-10-07] MEDS ORDERED: ACETAMINOPHEN 1000 MG/100 ML VIAL (NON FORMULARY) IVPB ONE (20:22)
[2020-10-07] MEDS ORDERED: ACETAMINOPHEN INJECTION 100 ML IVPB ONE (20:25)
[2020-10-07 22:25] LABS: EPI CELLS 4 /uL (0-25.1); HYALINE CASTS 0 /uL (0-3.1); PH,URINE 5.5 (5.0-8.0); URINE APPEARANCE CLEAR; URINE BACTERIA >9,000 /uL (0-1359); URINE BILIRUBIN NEGATIVE (NEGATIVE); URINE COLOR YELLOW; URINE GLUCOSE (UA) NEGATIVE (NEGATIVE); URINE KETONE NEGATIVE (NEGATIVE); URINE LEUK ESTERASE NEGATIVE (NEGATIVE); URINE NITRITE POSITIVE (NEGATIVE); URINE PROTEIN NEGATIVE (NEGATIVE); URINE RBC 3 /uL (0-23.9); URINE UROBILINOGEN 0.2 mg/dL (0.2-1.0); URINE WBC 7 /uL (0-25.8)
[2020-10-08] MEDS ORDERED: CEFTRIAXONE 1 GM in DEXTROSE 5%-WATER - 50 ML IVPB SCH (01:09)
[2020-10-08] MEDS ORDERED: PANTOPRAZOLE SODIUM 40 MG VIAL IVPUSH SCH (01:15)
[2020-10-08] MEDS ORDERED: SODIUM CHLORIDE 1,000 ML IV SCH (01:15)
[2020-10-08] MEDS ORDERED: LACTATED RINGERS SOLUTION 1,000 ML IV SCH (01:15)
[2020-10-08] MEDS ORDERED: PANTOPRAZOLE SODIUM 40 MG/100 ML BAG IVPB ONE (04:22)
[2020-10-08] MEDS ORDERED: CEFTRIAXONE 1 GM/50 ML BAG ONE (04:22)
[2020-10-08 06:16] VITALS: TEMP 98.6
[2020-10-08 07:21] LABS: HEMATOCRIT 28.9 % (32.4-45.2); HEMOGLOBIN 9.7 GM/dL (10.7-15.3); MCH 29.4 pg (25.7-33.7); MCHC 33.6 g/dl (32.0-36.0); MEAN CELL VOLUME 87.6 fl (80-96); MEAN PLT VOLUME 7.4 fl (7.5-11.1); PLATELET COUNT 336 K/MM3 (134-434); RDW 16.5 % (11.6-15.6)
[2020-10-08 07:46] LABS: CHLORIDE 112 mmol/L (98-107); SODIUM 139 mmol/L (136-145)
[2020-10-08 07:47] LABS: ANION GAP 4 MMOL/L (8-16); BLOOD UREA NITROGEN 19.9 mg/dL (7-18); CALCIUM 7.5 mg/dL (8.5-10.1); CO2 22 mmol/L (21-32)
[2020-10-08 07:48] LABS: GLUCOSE,RANDOM 81 mg/dL (74-106); MAGNESIUM 2.2 mg/dL (1.8-2.4)
[2020-10-08 07:51] LABS: CREATININE 0.5 mg/dL (0.55-1.3); PHOSPHOROUS 2.4 mg/dL (2.5-4.9)
[2020-10-08 09:38] VITALS: BP 108/78; PULSE 74
== END 2020-10-08 09:40 | disposition left against medical advice (07) | DRG 812 ==
LOC: JER 17:20 → JERBED 22:23
PROVIDERS: ADMIT Internal Medicine; ATTEND Student in an Organized Health Care Education/Training Program
DX: D64.9 Anemia, unspecified (principal); E46 Unspecified protein-calorie malnutrition; N39.0 Urinary tract infection, site not specified; F20.9 Schizophrenia, unspecified; F32.9 Major depressive disorder, single episode, unspecified; E88.09 Other disorders of plasma-protein metabolism, not elsewhere classified; Z68.23 Body mass index [BMI] 23.0-23.9, adult
CPT/HCPCS: 36415; 36430; 71045-TC-FY; 80048; 80053; 81003; 82272; 82728; 83540; 83550; 83605; 83735; 84100; 84484; 85025; 85027; 85045; 86850; 86900; 86901; 86922; 87040; 87086; 87186; 93005; 93010; 99285-25; C9803; J0131; P9058; U0003; U0005

== ENCOUNTER 2020-10-22 21:30 | Emergency (ER) | payer OTHER ==
[2020-10-22 21:54] VITALS: BP 120/70; PULSE 74; TEMP 99.5; BMI 18.8
[2020-10-22] MEDS ORDERED: ACETAMINOPHEN 1000 MG/100 ML VIAL (NON FORMULARY) IVPB ONE (23:18)
[2020-10-22] MEDS ORDERED: ACETAMINOPHEN 325 MG TABLET (FP) PO ONE (23:41)
[2020-10-22] MEDS ORDERED: ACETAMINOPHEN 325 MG TABLET (FP) ONE (23:44)
== END 2020-10-23 00:51 | disposition left against medical advice (07) ==
LOC: JER 21:30
DX: R07.9 Chest pain, unspecified (principal)
CPT/HCPCS: 71045-TC-FY; 93005; 93010; 99285-25

== ENCOUNTER 2020-10-23 04:00 | Observation (INO) | payer OTHER ==
[2020-10-23 04:16] VITALS: BMI 19.1
[2020-10-23 05:52] LABS: URINE APPEARANCE CLEAR; URINE BILIRUBIN NEGATIVE (NEGATIVE); URINE COLOR YELLOW; URINE GLUCOSE (UA) NEGATIVE (NEGATIVE); URINE KETONE NEGATIVE (NEGATIVE); URINE LEUK ESTERASE NEGATIVE (NEGATIVE); URINE NITRITE NEGATIVE (NEGATIVE); URINE PROTEIN NEGATIVE (NEGATIVE); URINE UROBILINOGEN 0.2 mg/dL (0.2-1.0)
[2020-10-23 05:53] LABS: BASO % 1.5 % (0-2.0); EOS % 2.6 % (0-4.5); HEMATOCRIT 28.4 % (32.4-45.2); HEMOGLOBIN 9.4 GM/dL (10.7-15.3); LYMPH % 40.7 % (8-40); MCH 29.6 pg (25.7-33.7); MEAN CELL VOLUME 89.7 fl (80-96); MEAN PLT VOLUME 7.3 fl (7.5-11.1); NEUT % 39.2 % (42.8-82.8); PLATELET COUNT 524 K/MM3 (134-434); RBC 3.16 M/mm3 (3.60-5.2); RDW 16.5 % (11.6-15.6); WHITE BLOOD COUNT 6.2 K/mm3 (4.0-10.0)
[2020-10-23 06:19] LABS: CHLORIDE 103 mmol/L (98-107); SODIUM 138 mmol/L (136-145)
[2020-10-23 06:21] LABS: CALCIUM 7.8 mg/dL (8.5-10.1)
[2020-10-23 06:22] LABS: ALBUMIN 2.5 g/dl (3.4-5.0); ANION GAP 8 MMOL/L (8-16); BLOOD UREA NITROGEN 13.3 mg/dL (7-18); CO2 27 mmol/L (21-32); GLUCOSE,RANDOM 90 mg/dL (74-106); MAGNESIUM 1.9 mg/dL (1.8-2.4)
[2020-10-23 06:25] LABS: CREATININE 0.5 mg/dL (0.55-1.3); PHOSPHOROUS 3.5 mg/dL (2.5-4.9); SGOT/AST 16 U/L (15-37)
[2020-10-23 06:26] LABS: BILIRUBIN,TOTAL 0.2 mg/dL (0.2-1); SGPT/ALT 15 U/L (13-61)
[2020-10-23 06:27] LABS: ALK PHOS 96 U/L (45-117); TOT PROT 5.2 g/dl (6.4-8.2)
[2020-10-23] MEDS ORDERED: HALOPERIDOL 0.5 MG TABLET PO ONE (10:18)
[2020-10-23] MEDS ORDERED: ENOXAPARIN NA (PORCINE) 30 MG/0.3 ML DISP.SYRIN SQ ONE (10:25)
[2020-10-23] MEDS: ENOXAPARIN NA (PORCINE) 30 MG/0.3 ML DISP.SYRIN SQ SCH (10:41)
[2020-10-23] MEDS ORDERED: HALOPERIDOL LACTATE 5 MG/ML IM ONE (12:41)
[2020-10-23] MEDS ORDERED: HALOPERIDOL LACTATE 5 MG/ML ONE (12:49)
[2020-10-23] MEDS ORDERED: HALOPERIDOL 1 MG TABLET PO ONE (13:04)
[2020-10-24 09:05] LABS: CHOLESTEROL 203 mg/dL (50-200); HDL CHOLESTEROL 54 mg/dL (40-60); LDL CHOLESTEROL (ONLY SJRH) 99 mg/dL (5-100); N-TERMINAL BNP 403.7 pg/ml (5-125); TRIGLYCERIDES 181 mg/dL (0-150)
[2020-10-24] MEDS: ENOXAPARIN NA (PORCINE) 30 MG/0.3 ML DISP.SYRIN SQ SCH (09:21)
[2020-10-24] MEDS: ACETAMINOPHEN 325 MG TABLET (FP) PO PRN ×2 (13:40→19:50)
[2020-10-25] MEDS: ACETAMINOPHEN 325 MG TABLET (FP) PO PRN ×4 (02:57→18:34)
[2020-10-25] MEDS: MELATONIN 1 MG TABLET PO PRN ×2 (02:59→21:55)
[2020-10-25] MEDS: ENOXAPARIN NA (PORCINE) 30 MG/0.3 ML DISP.SYRIN SQ SCH (09:11)
[2020-10-25 11:15] LABS: SARS-CoV-2 NAA Not Detected (Not Detected)
[2020-10-26] MEDS: ENOXAPARIN NA (PORCINE) 30 MG/0.3 ML DISP.SYRIN SQ SCH (09:30)
[2020-10-26] MEDS: ACETAMINOPHEN 325 MG TABLET (FP) PO PRN ×2 (14:48→22:44)
[2020-10-27] MEDS: ACETAMINOPHEN 325 MG TABLET (FP) PO PRN ×4 (06:32→22:52)
[2020-10-27] MEDS: ENOXAPARIN NA (PORCINE) 30 MG/0.3 ML DISP.SYRIN SQ SCH (09:48)
[2020-10-27] MEDS: MELATONIN 1 MG TABLET PO PRN (21:04)
[2020-10-27 23:17] LABS: COCAINE, UR NEGATIVE ng/ml (CUTOFF=300); METHADONE, UR NEGATIVE ng/ml (CUTOFF=300); OPIATES, URI NEGATIVE ng/ml (CUTOFF=300); PHENCYCLIDINE,URINE NEGATIVE ng/ml (CUTOFF=25); URINE AMPHETAMINES NEGATIVE ng/ml (CUTOFF=500); URINE BARBITURATES NEGATIVE ng/ml (CUTOFF=200); URINE BENZODIAZEPINES NEGATIVE ng/ml (CUTOFF=200)
[2020-10-28] MEDS ORDERED: ONDANSETRON 4 MG/2 ML VIAL IVPUSH ONE (01:42)
[2020-10-28] MEDS ORDERED: ONDANSETRON 4 MG TABLET PO ONE (01:50)
[2020-10-28] MEDS ORDERED: ONDANSETRON *ODT* 4 MG TABLET SL ONE (02:51)
[2020-10-28] MEDS: ACETAMINOPHEN 325 MG TABLET (FP) PO PRN ×4 (04:15→18:03)
[2020-10-28] MEDS: ENOXAPARIN NA (PORCINE) 30 MG/0.3 ML DISP.SYRIN SQ SCH (09:58)
[2020-10-29] MEDS: ACETAMINOPHEN 325 MG TABLET (FP) PO PRN ×4 (09:39→22:59)
[2020-10-29] MEDS: ENOXAPARIN NA (PORCINE) 30 MG/0.3 ML DISP.SYRIN SQ SCH (10:19)
[2020-10-29] MEDS: MELATONIN 1 MG TABLET PO PRN (22:59)
[2020-10-30] MEDS: ACETAMINOPHEN 325 MG TABLET (FP) PO PRN ×3 (06:53→21:51)
[2020-10-30] MEDS: ENOXAPARIN NA (PORCINE) 30 MG/0.3 ML DISP.SYRIN SQ SCH (10:27)
[2020-10-30] MEDS ORDERED: PT OWN MED DRAWER 7, Y5N ONE (15:43)
[2020-10-30] MEDS: VENLAFAXINE HCL 37.5 MG E.R. CAPSULE PO SCH (17:18)
[2020-10-30] MEDS ORDERED: MAG HYDROX/AL HYDROX/SIMETH 30 ML UNIT-DOSE CUP PO ONE (21:34)
[2020-10-30] MEDS: MELATONIN 1 MG TABLET PO PRN (21:51)
[2020-10-31] MEDS: ACETAMINOPHEN 325 MG TABLET (FP) PO PRN ×2 (01:15→21:52)
[2020-10-31] MEDS ORDERED: PT OWN MED DRAWER 7, Y5N ONE ×2 (08:44→09:21)
[2020-10-31] MEDS: MEGESTROL ACETATE 400 MG/10 ML UNIT DOSE CUP PO SCH (09:25)
[2020-10-31] MEDS: VENLAFAXINE HCL 37.5 MG E.R. CAPSULE PO SCH ×2 (09:25→09:50)
[2020-10-31] MEDS: ENOXAPARIN NA (PORCINE) 30 MG/0.3 ML DISP.SYRIN SQ SCH (09:27)
[2020-10-31] MEDS: LIDOCAINE 5% TOPICAL PATCH TP SCH (10:15)
[2020-10-31 12:48] LABS: BASO % 0.8 % (0-2.0); EOS % 0.1 % (0-4.5); HEMATOCRIT 24.8 % (32.4-45.2); HEMOGLOBIN 8.3 GM/dL (10.7-15.3); LYMPH % 10.2 % (8-40); MCH 30.6 pg (25.7-33.7); MCHC 33.6 g/dl (32.0-36.0); MEAN CELL VOLUME 91.1 fl (80-96); MEAN PLT VOLUME 6.4 fl (7.5-11.1); MONO % 10.8 % (3.8-10.2); NEUT % 78.1 % (42.8-82.8); PLATELET COUNT 624 K/MM3 (134-434); RBC 2.72 M/mm3 (3.60-5.2); RDW 16.3 % (11.6-15.6); WHITE BLOOD COUNT 7.1 K/mm3 (4.0-10.0)
[2020-10-31 12:56] LABS: INR 0.93 (0.83-1.09); PROTHROMBIN TIME (PATIENT) 11.3 SEC (9.7-13.0)
[2020-10-31 12:59] LABS: ALBUMIN 2.6 g/dl (3.4-5.0); BLOOD UREA NITROGEN 17.5 mg/dL (7-18); CALCIUM 8.4 mg/dL (8.5-10.1); MAGNESIUM 2.3 mg/dL (1.8-2.4)
[2020-10-31 13:02] LABS: CREATININE 0.5 mg/dL (0.55-1.3)
[2020-10-31 13:04] LABS: BILIRUBIN,TOTAL 0.2 mg/dL (0.2-1); TOT PROT 5.6 g/dl (6.4-8.2)
[2020-10-31] MEDS: MELATONIN 1 MG TABLET PO PRN (21:52)
[2020-10-31] MEDS: HALOPERIDOL 1 MG TABLET PO SCH (21:55)
[2020-10-31] MEDS: LIDOCAINE PATCH REMOVAL MC SCH (22:49)
[2020-11-01] MEDS: LIDOCAINE 5% TOPICAL PATCH TP SCH (09:14)
[2020-11-01] MEDS: ACETAMINOPHEN 325 MG TABLET (FP) PO PRN ×4 (09:15→21:01)
[2020-11-01] MEDS: VENLAFAXINE HCL 37.5 MG E.R. CAPSULE PO SCH (09:16)
[2020-11-01] MEDS: MEGESTROL ACETATE 400 MG/10 ML UNIT DOSE CUP PO SCH (09:16)
[2020-11-01] MEDS: ENOXAPARIN NA (PORCINE) 30 MG/0.3 ML DISP.SYRIN SQ SCH (09:16)
[2020-11-01] MEDS: MELATONIN 1 MG TABLET PO PRN (21:01)
[2020-11-01] MEDS: HALOPERIDOL 1 MG TABLET PO SCH (21:10)
[2020-11-01] MEDS: LIDOCAINE PATCH REMOVAL MC SCH (21:11)
[2020-11-02] MEDS: ACETAMINOPHEN 325 MG TABLET (FP) PO PRN ×4 (00:28→18:42)
[2020-11-02] MEDS ORDERED: MAG HYDROX/AL HYDROX/SIMETH 30 ML UNIT-DOSE CUP PO ONE (03:49)
[2020-11-02] MEDS: VENLAFAXINE HCL 37.5 MG E.R. CAPSULE PO SCH (09:47)
[2020-11-02] MEDS: LIDOCAINE 5% TOPICAL PATCH TP SCH (09:47)
[2020-11-02] MEDS: ENOXAPARIN NA (PORCINE) 30 MG/0.3 ML DISP.SYRIN SQ SCH (09:47)
[2020-11-02] MEDS: MEGESTROL ACETATE 400 MG/10 ML UNIT DOSE CUP PO SCH (09:47)
[2020-11-02] MEDS: MAG HYDROX/AL HYDROX/SIMETH 30 ML UNIT-DOSE CUP PO PRN ×2 (17:33→23:40)
[2020-11-02] MEDS ORDERED: PT OWN MED DRAWER 7, Y5N ONE (20:28)
[2020-11-02] MEDS: HALOPERIDOL 1 MG TABLET PO SCH (21:10)
[2020-11-02] MEDS: LIDOCAINE PATCH REMOVAL MC SCH (21:11)
[2020-11-03] MEDS: ACETAMINOPHEN 325 MG TABLET (FP) PO PRN ×3 (08:58→21:03)
[2020-11-03] MEDS: LIDOCAINE 5% TOPICAL PATCH TP SCH (08:59)
[2020-11-03] MEDS: MEGESTROL ACETATE 400 MG/10 ML UNIT DOSE CUP PO SCH (08:59)
[2020-11-03] MEDS ORDERED: ENOXAPARIN NA (PORCINE) 30 MG/0.3 ML DISP.SYRIN SQ SCH (10:00)
[2020-11-03] MEDS: VENLAFAXINE HCL 37.5 MG E.R. CAPSULE PO SCH (14:51)
[2020-11-03] MEDS: MAG HYDROX/AL HYDROX/SIMETH 30 ML UNIT-DOSE CUP PO PRN (18:31)
[2020-11-03] MEDS ORDERED: PT OWN MED DRAWER 7, Y5N ONE (20:41)
[2020-11-03] MEDS: LIDOCAINE PATCH REMOVAL MC SCH (21:04)
[2020-11-03] MEDS ORDERED: HALOPERIDOL 1 MG TABLET PO SCH (22:00)
[2020-11-04] MEDS: MAG HYDROX/AL HYDROX/SIMETH 30 ML UNIT-DOSE CUP PO PRN ×3 (00:32→20:45)
[2020-11-04] MEDS: ACETAMINOPHEN 325 MG TABLET (FP) PO PRN ×6 (01:15→20:35)
[2020-11-04] MEDS: MELATONIN 1 MG TABLET PO PRN ×2 (04:01→20:35)
[2020-11-04] MEDS ORDERED: HALOPERIDOL 2 MG TABLET PO SCH (08:14)
[2020-11-04] MEDS ORDERED: PT OWN MED DRAWER 7, Y5N ONE (09:23)
[2020-11-04] MEDS: MEGESTROL ACETATE 400 MG/10 ML UNIT DOSE CUP PO SCH (09:30)
[2020-11-04] MEDS: VENLAFAXINE HCL 37.5 MG E.R. CAPSULE PO SCH (09:30)
[2020-11-04] MEDS: MULTIVITAMINS (DAILY MVI) TABLET (FP) PO SCH (09:30)
[2020-11-04] MEDS: LIDOCAINE 5% TOPICAL PATCH TP SCH ×2 (09:31→16:18)
[2020-11-04 11:25] LABS: BASO % 1.3 % (0-2.0); EOS % 0.1 % (0-4.5); HEMATOCRIT 25.4 % (32.4-45.2); HEMOGLOBIN 8.9 GM/dL (10.7-15.3); LYMPH % 32.1 % (8-40); MCH 33.7 pg (25.7-33.7); MCHC 35.2 g/dl (32.0-36.0); MEAN CELL VOLUME 95.7 fl (80-96); MEAN PLT VOLUME 6.9 fl (7.5-11.1); MONO % 10.5 % (3.8-10.2); PLATELET COUNT 524 K/MM3 (134-434); RBC 2.65 M/mm3 (3.60-5.2); RDW 16.4 % (11.6-15.6); WHITE BLOOD COUNT 4.3 K/mm3 (4.0-10.0)
[2020-11-04 11:37] LABS: ALBUMIN 2.7 g/dl (3.4-5.0); CALCIUM 8.1 mg/dL (8.5-10.1)
[2020-11-04 11:38] LABS: BLOOD UREA NITROGEN 19.3 mg/dL (7-18); MAGNESIUM 2.6 mg/dL (1.8-2.4)
[2020-11-04 11:41] LABS: CREATININE 0.5 mg/dL (0.55-1.3)
[2020-11-04 11:42] LABS: BILIRUBIN,TOTAL 0.2 mg/dL (0.2-1)
[2020-11-04] MEDS: LIDOCAINE PATCH REMOVAL MC SCH (23:12)
[2020-11-05 01:16] VITALS: BP 107/71; PULSE 91; TEMP 99
[2020-11-05] MEDS: ACETAMINOPHEN 325 MG TABLET (FP) PO PRN ×2 (01:24→08:04)
[2020-11-05] MEDS ORDERED: ENOXAPARIN NA (PORCINE) 30 MG/0.3 ML DISP.SYRIN SQ SCH (10:00)
[2020-11-05] MEDS ORDERED: PT OWN MED DRAWER 7, Y5N ONE (10:36)
[2020-11-05] MEDS: MULTIVITAMINS (DAILY MVI) TABLET (FP) PO SCH (10:39)
[2020-11-05] MEDS: VENLAFAXINE HCL 37.5 MG E.R. CAPSULE PO SCH (10:40)
[2020-11-05] MEDS: LIDOCAINE 5% TOPICAL PATCH TP SCH (10:40)
[2020-11-05] MEDS: MEGESTROL ACETATE 400 MG/10 ML UNIT DOSE CUP PO SCH (10:40)
== END 2020-11-05 14:36 ==
LOC: JER 04:00 → JERBED 08:13 → UNDOADMOB 08:13 → INTOOBSV 08:13 → JERBED 11:25 → J4S 20:41 → J7W 10-31 14:37
PROVIDERS: ADMIT Internal Medicine; ATTEND Nurse Practitioner Family
PROC: 3E023GC Introduction of Other Therapeutic Substance into Muscle, Percutaneous Approach (ICD-10-PCS; principal; 2020-10-23)
DX: F20.0 Paranoid schizophrenia (principal); D64.9 Anemia, unspecified; R26.2 Difficulty in walking, not elsewhere classified; M62.81 Muscle weakness (generalized); E46 Unspecified protein-calorie malnutrition; E78.1 Pure hyperglyceridemia; S32.10XA Unspecified fracture of sacrum, initial encounter for closed fracture; X58.XXXA Exposure to other specified factors, initial encounter; Y93.9 Activity, unspecified; R22.43 Localized swelling, mass and lump, lower limb, bilateral; F32.9 Major depressive disorder, single episode, unspecified; R07.89 Other chest pain; R53.83 Other fatigue; R51.9 Headache, unspecified; R63.0 Anorexia; Z68.1 Body mass index [BMI] 19.9 or less, adult; R64 Cachexia; R11.2 Nausea with vomiting, unspecified; Z86.59 Personal history of other mental and behavioral disorders; R62.7 Adult failure to thrive; T43.205A Adverse effect of unspecified antidepressants, initial encounter; Z29.9 Encounter for prophylactic measures, unspecified; Z91.14 Patient's other noncompliance with medication regimen
CPT/HCPCS: 36415; 70450-TC; 73630-TC-LT; 73630-TC-RT-FY; 80053; 80061; 80307; 81003; 82550; 83036; 83721; 83735; 83880; 84100; 84443; 84484; 85025; 85610; 87086; 93005; 93010; 96372; 97116-GP; 97161-GP; 99285-25; C9803; G0378; Q0162; U0003; U0005